=== PATIENT | female | born 1960 | race Caucasian/White ===

== ENCOUNTER 2016-12-04 10:39 | Emergency (ER) | payer MEDICAID ==
[2016-12-04] MEDS ORDERED: BENZONATATE 100 MG CAPSULE PO STA (13:22)
[2016-12-04] MEDS ORDERED: OSELTAMIVIR 75 MG CAPSULE PO STA (13:22)
[2016-12-04] MEDS ORDERED: guaiFENesin/CODEINE 5 ML UDC PO STA (13:22)
[2016-12-04] MEDS ORDERED: guaiFENesin/CODEINE 5 ML UDC ONE (13:33)
[2016-12-04] MEDS ORDERED: BENZONATATE 100 MG CAPSULE PO ONE (13:33)
[2016-12-04] MEDS ORDERED: OSELTAMIVIR 75 MG CAPSULE PO ONE (13:34)
== END 2016-12-04 13:44 | disposition home or self-care (01) ==
DX: J10.1 Influenza due to other identified influenza virus with other respiratory manifestations (principal); D89.9 Disorder involving the immune mechanism, unspecified; Z94.0 Kidney transplant status; Z94.4 Liver transplant status; Z87.891 Personal history of nicotine dependence
CPT/HCPCS: 71020; 87275; 87276; 99283; 99284; A9270

== ENCOUNTER 2017-05-01 16:54 | Inpatient (IN) | payer MEDICAID ==
[2017-05-01] MEDS ORDERED: ONDANSETRON 4 MG/2 ML VIAL IVP STA (17:11)
--- NOTE | 2017-05-01 17:13 | ED Physician Documentation ---
PD HPI ABD PAIN - Stated complaint Stated Complaint: FEMALE ,FEVER - Chief complaint Chief Complaint: Abd Pain - History obtained from History obtained from: Patient - History of Present Illness Timing - onset: Other (56-year-old woman with history of cirrhosis, 3 years out from kidney liver transplant. Developed diffuse back pain yesterday and today with shaking chills and fevers consistent with prior episode of UTI. Had a fever to 102 just prior to arrival. Feels nauseous.) Review of Systems Ten Systems: 10 systems reviewed and negative Constitutional: reports: Fever, Chills, Myalgias, Fatigue, Sweats Nose: denies: Rhinorrhea / runny nose, Congestion Respiratory: denies: Dyspnea, Cough GI: reports: Nausea. denies: Vomiting PD PAST MEDICAL HISTORY - Past Medical History Cardiovascular: None Respiratory: Asthma Neuro: Seizure disorder Endocrine/Autoimmune: None GI: GI bleed, Hepatitis, Cirrhosis EMERY GRINDER: None : None HEENT: None Psych: Depression Musculoskeletal: None Derm: None - Past Surgical History Past Surgical History: Yes Ortho: Other /EMERY GRINDER: section, Hysterectomy HEENT: Tonsil/Adenoidectomy - Present Medications Home Medications: Ambulatory Orders Medication Instructions Recorded Confirmed Mycophenolate Sodium [Mycophenolic 180 mg PO BID 03/07/15 05/01/17 Acid] Tacrolimus 1 mg PO BID 03/07/15 05/01/17 Fluticasone [Flonase] 1 sprays TAVO BID PRN #1 bottle 12/04/16 05/01/17 Levofloxacin [Levaquin] 500 mg PO DAILY #10 tablet 05/01/17 oxyCODONE [Roxicodone] 1 - 2 tab PO Q4-6H PRN #15 tablet 05/01/17 - Allergies Allergies/Adverse Reactions: Allergies Allergy/AdvReac Type Severity Reaction Status Date / Time promethazine HCl * Allergy Intermediate Anxiety Verified 05/01/17 17:00 [From Phenergan] sertraline HCl * Allergy Unknown Unknown Verified 05/01/17 17:00 [From Zoloft] - Social History Does the pt smoke?: No Smoking Status: Former smoker Does the pt drink ETOH?: Yes Does the pt have substance abuse?: No - Immunizations Immunizations are current?: Yes - POLST Patient has POLST: Yes PD ED PE NORMAL - Vitals Vital signs reviewed: Yes - General General: Alert and oriented X 3, No acute distress - HEENT HEENT: PERRL, EOMI - Neck Neck: Supple, no meningeal sign, No bony TTP - Cardiac Cardiac: RRR, No murmur - Respiratory Respiratory: No respiratory distress, Clear bilaterally - Abdomen Abdomen: Soft, Other (TTP RLQ (where her neokidney is)) - Back Back: No CVA TTP, No spinal TTP - Derm Derm: Normal color, Warm and dry - Extremities Extremities: No edema, No calf tenderness / cord - Neuro Neuro: Alert and oriented X 3, Normal speech - Psych Psych: Normal mood, Normal affect Results - Vitals Vitals: Vital Signs - 24 hr 05/01/17 05/01/17 05/01/17 16:57 18:04 18:49 Temperature 37.6 C H 37.7 C H Heart Rate 75 110 H 112 H Respiratory 18 18 Rate Blood Pressure 160/91 H 102/57 L 102/51 L O2 Saturation 100 96 99 05/01/17 18:56 Temperature 38.1 C H Heart Rate 120 H Respiratory 18 Rate Blood Pressure O2 Saturation 97 Oxygen O2 Source Room air - Labs Labs: Laboratory Tests 05/01/17 05/01/17 05/01/17 17:15 17:30 17:30 WBC 9.2 RBC 3.84 L Hgb 12.2 Hct 35.4 L MCV 92.4 MCH 31.7 H MCHC 34.3 RDW 12.8 Plt Count 228 MPV 7.9 Neut # Not Reportable Lymph # Not Reportable Archer # Not Reportable Eos # Not Reportable Baso # Not Reportable Absolute Nucleated RBC Not Reportable Total Counted 100 Band Neuts % (Manual) 2 Neutrophils # (Manual) 7.8 H Lymphocytes # (Manual) 1.0 L Monocytes # (Manual) 0.2 Eosinophils # (Manual) 0.2 Nucleated RBCs Not Reportable Differential Comment MANUAL DIFFERENTIAL Manual Slide Review Indicated Platelet Estimate NORMAL (130-450,000) Platelet Morphology NORMAL APPEARANCE RBC Morph Micro Appear NORMAL APPEARANCE Sodium 134 L Potassium 3.9 Chloride 100 L Carbon Dioxide 25 Anion Gap 9.0 BUN 21 H Creatinine 1.1 H Estimated GFR (MDRD) 52 L Glucose 120 H Lactic Acid Calcium 9.0 Total Bilirubin 1.1 H AST 22 ALT 21 Alkaline Phosphatase 58 Total Protein 7.4 Albumin 4.5 Globulin 2.9 Albumin/Globulin Ratio 1.6 Lipase 18 L Urine Color YELLOW Urine Clarity CLEAR Urine pH 5.5 Ur Specific Cecil 1.020 Urine Protein NEGATIVE Urine Glucose (UA) NEGATIVE Urine Ketones NEGATIVE Urine Occult Blood TRACE-INTA Urine Nitrite NEGATIVE Urine Bilirubin NEGATIVE Urine Urobilinogen 0.2 (NORMAL) Ur Leukocyte Esterase SMALL H Urine RBC 6-10 H Urine WBC 6-10 H Ur Squamous Epith Cells FEW Squamous Urine Bacteria Moderate H Ur Microscopic Review INDICATED Urine Culture Comments INDICATED 05/01/17 17:30 WBC RBC Hgb Hct MCV MCH MCHC RDW Plt Count MPV Neut # Lymph # Archer # Eos # Baso # Absolute Nucleated RBC Total Counted Band Neuts % (Manual) Neutrophils # (Manual) Lymphocytes # (Manual) Monocytes # (Manual) Eosinophils # (Manual) Nucleated RBCs Differential Comment Manual Slide Review Platelet Estimate Platelet Morphology RBC Morph Micro Appear Sodium Potassium Chloride Carbon Dioxide Anion Gap BUN Creatinine Estimated GFR (MDRD) Glucose Lactic Acid 0.8 Calcium Total Bilirubin AST ALT Alkaline Phosphatase Total Protein Albumin Globulin Albumin/Globulin Ratio Lipase Urine Color Urine Clarity Urine pH Ur Specific Cecil Urine Protein Urine Glucose (UA) Urine Ketones Urine Occult Blood Urine Nitrite Urine Bilirubin Urine Urobilinogen Ur Leukocyte Esterase Urine RBC Urine WBC Ur Squamous Epith Cells Urine Bacteria Ur Microscopic Review Urine Culture Comments PD MEDICAL DECISION MAKING - ED course ED course: 56-year-old woman with history of kidney and liver transplant presents with UTI symptoms and some symptoms concerning for systemic infection including fever and rigors. Blood work was reassuring with creatinine at her baseline and no leukocytosis and she very much wanted to go home. However she did become more tachycardic and developed a shock index. Patient still did not want to be admitted. I discussed the case with nephrology at [facility] per her request, Dr. Castillo who did recommend admission on IV antibiotics. Spoke with Dr. Tom at 740 p.m. Departure - Departure Disposition: [facility] DC/Xfer Clinical Impression: Pyelonephritis, Liver transplant recipient, Kidney transplant recipient Condition: Good Record reviewed to determine appropriate education?: Yes Instructions: Pyelonephritis Dc Prescriptions: Levofloxacin [Levaquin] 500 mg PO DAILY #10 tablet oxyCODONE [Roxicodone] 1 - 2 tab PO Q4-6H PRN #15 tablet PRN Reason: Pain Comments: As we discussed we will culture your urine, this results should be done in 48- 72 hours. If an antibiotic change is necessary we will call you. Return if worse in the meantime, especially if you develop flank pain or fevers or cannot keep down the medication. If blood cultures were positive we will call you, you will need to return immediately. Follow up with your DrDorcas in 2 days.
[2017-05-01] MEDS ORDERED: SODIUM CHLORIDE 0.9% 1,000 ML IV ONE (17:14)
[2017-05-01] MEDS ORDERED: ONDANSETRON 4 MG/2 ML VIAL ONE (17:20)
[2017-05-01 17:22] LABS: BILIRUBIN,URINE NEGATIVE (NEGATIVE); PH,URINE 5.5 PH (5.0-7.5)
[2017-05-01 17:23] LABS: UA w/ MICROSCOPIC CHARGE YES
[2017-05-01 17:29] LABS: UR CULTURE IF IND INDICATED
[2017-05-01] MEDS ORDERED: HYDROmorphone 1 MG/ML SYRINGE IVP STA ×2 (17:36→18:09)
[2017-05-01] MEDS ORDERED: HYDROmorphone 1 MG/ML SYRINGE ONE ×2 (17:39→18:11)
[2017-05-01 17:45] LABS: BASOPHILS % (AUTO) 0.3 %; EOSINOPHILS % (AUTO) 0.8 %; HCT - HEMATOCRIT 35.4 % (37.0-47.0); HGB - HEMOGLOBIN 12.2 g/dL (12.0-16.0); LYMPHOCYTES % (AUTO) 6.8 %; MEAN CORPUSCULAR HEMOGLOBIN 31.7 pg (27.0-31.0); MEAN CORPUSCULAR HGB CONC 34.3 g/dL (32.0-36.0); MEAN CORPUSCULAR VOLUME 92.4 fL (81.0-99.0); MEAN PLATELET VOLUME 7.9 fL (7.9-10.8); MONOCYTES % (AUTO) 1.7 %; NEUTROPHILS % (AUTO) 90.4 %; RED BLOOD COUNT 3.84 10^6/uL (4.20-5.40); RED CELL DISTRIBUTION WIDTH 12.8 % (12.0-15.0); UNCORRECTED WHITE BLOOD COUNT 9.2 x10^3/uL; WHITE BLOOD COUNT 9.2 x10^3/uL (4.8-10.8)
[2017-05-01 17:56] LABS: ALBUMIN/GLOBULIN RATIO 1.6 (1.0-2.2); BILIRUBIN,TOTAL 1.1 mg/dL (0.2-1.0); CREATININE 1.1 mg/dL (0.4-1.0); POTASSIUM 3.9 mmol/L (3.5-5.0); TOTAL PROTEIN 7.4 g/dL (6.7-8.2)
[2017-05-01] MEDS ORDERED: cefTRIAXone 1 GM in SODIUM CHLORIDE 0.9% MINIBAG 100 ML IV STA (18:10)
[2017-05-01] MEDS ORDERED: SODIUM CHLORIDE 0.9% MINIBAG 100 ML IV ONE (18:11)
[2017-05-01] MEDS ORDERED: cefTRIAXone 1 GM VIAL ONE (18:11)
[2017-05-01] MEDS ORDERED: METOCLOPRAMIDE 10 MG/2 ML VIAL IVP STA (19:26)
[2017-05-01] MEDS ORDERED: METOCLOPRAMIDE 10 MG/2 ML VIAL ONE (19:29)
[2017-05-01 19:37] LABS: BAND NEUTROPHILS % (MANUAL) 2 %; EOSINOPHILS % (MANUAL) 2 %; LYMPHOCYTES % (MANUAL) 11 %; NEUTROPHILS % (MANUAL) 83 %; NP AUTO DIFFERENTIAL? YES; NP MAN DIFFERENTIAL? NO; PLATELET ESTIMATE, MANUAL NORMAL (130-450,000) (NORMAL); PLATELET MORPHOLOGY NORMAL APPEARANCE (NORMAL); TOTAL CELLS COUNTED 100
[2017-05-01] MEDS ORDERED: ACETAMINOPHEN 325 MG TABLET PO STA (19:43)
[2017-05-01] MEDS ORDERED: ACETAMINOPHEN 325 MG TABLET PO ONE (19:58)
[2017-05-01] MEDS ORDERED: PROCHLORPERAZINE 10 MG/2 ML VIAL IVP PRN (20:46)
[2017-05-01] MEDS ORDERED: ZOLPIDEM 5 MG TABLET PO PRN (20:46)
[2017-05-01] MEDS ORDERED: oxyCODONE 5 MG TABLET PO PRN ×2 (20:46)
[2017-05-01] MEDS ORDERED: SODIUM CHLORIDE FLUSH 0.9% 10 ML SYRINGE IVP PRN (20:46)
[2017-05-01] MEDS ORDERED: ONDANSETRON 4 MG/2 ML VIAL IVP PRN (20:46)
[2017-05-01] MEDS: HYDROmorphone 1 MG/ML SYRINGE IVP PRN (22:02)
[2017-05-01] MEDS: SODIUM CHLORIDE 0.9% 1,000 ML IV SCH (22:03)
[2017-05-01] MEDS: PHENAZOPYRIDINE 100 MG TABLET PO SCH (22:03)
[2017-05-01] MEDS: SODIUM CHLORIDE FLUSH 0.9% 10 ML SYRINGE IVP SCH (22:04)
[2017-05-01] MEDS: TACROLIMUS 0.5 MG CAPSULE PO SCH (22:04)
[2017-05-01] MEDS ORDERED: SODIUM CHLORIDE 0.9% 1,000 ML IV SCH (22:32)
--- NOTE | 2017-05-01 23:35 | HISTORY & PHYSICAL EXAMINATION ---
Chief Complaint - Chief Complaint Chief Complaint: back pain History of Present Illness - Admitted From Admitted From:: emergency department - History Obtained From Records Reviewed: yes History obtained from: patient Exam Limitations: none - History of Present Illness HPI Comment/Other: Patient is a 56-year-old female with a past medical history significant for liver and kidney transplant done 2-1/2 years ago currently on immunosuppression therapy with mycophenolate and tacrolimus, history of alcoholic liver cirrhosis and recurrent UTIs since transplant who presents to the emergency department with a chief complaint of back pain. The patient states that she was in her normal state of health until earlier today when she states at work she felt very fatigued which is not normal for her. She states that when she returned home from work she began to shake and had chills. She states that she laid in bed and then started to develop back pain. She states the pain was in the lower back but most severe in the right flank area. She states that the pain radiated around to the right lower quadrant. From her previous experience with having urinary tract infections she thought she may be having another UTI. She checked her temperature at home it was 101.8 so she decided to come into the emergency department. The patient also states that she was feeling nauseated but had not vomited. Otherwise she denied any headaches, blurred vision, runny nose, nasal congestion, sore throat, cough, chest pain, shortness of air, orthopnea, increased lower extremity swelling, diarrhea, recent unintentional weight loss, night sweats or focal neurologic deficits.The patient denied any dysuria, polyuria, increased urinary urgency but she states that she does not normally get urinary symptoms when she has a UTI. On presentation to the emergency department the patient initially had a low- grade fever of 37.6 and otherwise normal vital signs. Her initial lab work showed a slight hypo-natremia and a creatinine of 1.1 which she stated was near her baseline. She had a normal lactic acid and her white blood cell count was only 9.2 although she is immunosuppressed. The patient's UA did show small leukocyte estrace with positive RBCs and WBCs with moderate bacteria. Initially it appeared the patient may be well enough to go home however while in the emergency department the patient spiked fevers up to 38.8 and her heart rate went up to the 130s. Initially she her blood pressure was stable but then she became hypotensive on presentation to the floor. The emergency department physician Dr. Soares spoke with the patient's mend worker at [facility] Dr. Castillo who recommended the patient be admitted and given IV antibiotics. Given the mend worker recommendation and the fact the patient appeared to be going into early sepsis we decided to admit the patient for pyelonephritis. Review of Systems - Constitutional Constitutional: reports: Fatigue, Fever, Chills, Weakness. denies: Malaise, Poor appetite, Diaphoresis, Night sweats, Weight gain, Weight loss - Eyes Eyes: denies: Pain, Irritation, Amaurosis, Blurred vision, Spots in vision, Field loss, Vision loss, Dipolpia, Corrective lenses, Other - Ears, Nose & Throat Ears, Nose & Throat: denies: Ear pain, Hearing loss, Hearing aids, Tinnitus, Vertigo, Nasal pain, Nasal discharge, Nosebleeds, Nasal obstruction, Nasal congestion, Postnasal drainage, Dentures, Sore throat, Hoarseness, Mouth lesions , Bleeding gums, Dental decay, Dental pain, Other - Cardiovascular Cariovascular: denies: Irregular heart rate, Palpitations, Chest pain, Edema, Lightheadedness, Syncope, Exertional dyspnea, Decr. exercise tolerance, Orthopnea, Other - Respiratory Respiratory: denies: Cough, Sputum production, Wheezing, Snoring, Hemoptysis, Orthopnea, SOB at rest, SOB with exertion, Apnea, Stridor, Pleuritic pain, Other - Gastrointestinal Gastrointestinal: reports: Abdominal pain (right lower quadrant and bilateral flanks worse in right flank (pateints transplant kidney is in the RLQ)), Nausea. denies: Abdominal distention, Constipation, Diarrhea, Change in bowel habits, Black stools, Bloody stools, Vomiting, Bile emesis, Coffee grounds emesis, Poor appetite - Genitourinary Genitourinary: reports: Flank pain. denies: Dysuria, Frequency, Urgency, Hematuria - Musculoskeletal Musculoskeletal: reports: Back pain. denies: Muscle pain, Muscle aches, Stiffness, Limited range of motion, Muscle weakness, Joint pain, Joint swelling - Integumentary Integumentary: denies: Rash, Pruritis, Lesions, Dryness - Neurological Neurological: reports: General weakness. denies: Focal weakness, Headache, Dizziness, Numbness, Abnormal gait, Seizures - Psychiatric Psychiatric: denies: Depression, Anxiety - Endocrine Endocrine: denies: Polyuria, Polydypsia, Polyphagia, Intolerance to cold, Intolerance to heat - Hematologic/Lymphatic Hematologic/Lymphatic: denies: Anemia, Bruising, Petechiae, Lymphadenopathy History - Past Medical History Cardiovascular: reports: None Respiratory: reports: Asthma Neuro: reports: Seizure disorder Endocrine/Autoimmune: reports: None GI: reports: GI bleed (history of ), Cirrhosis (Secondary to alcoholism s/p liver transplant) LEAD DIE MOLDER: reports: None : reports: Other (Renal transplant secondary to hepatorenal syndrome from liver cirrhosis) HEENT: reports: None Psych: reports: Depression Musculoskeletal: reports: None Derm: reports: None MRSA Hx?: No Other Past Medical History: liver and kidney transplant october 2014 - Past Surgical History General: reports: Liver surgery (Tranplant), Other (Renal transplant) Ortho: reports: Other /LEAD DIE MOLDER: reports: section, Hysterectomy HEENT: reports: Tonsil/Adenoidectomy - Family & Social History Family History: Father: Alcoholism, Alzheimer's Disease, Other family: CAD ( Maternal grandmother and aunt) Family History Comment/Other: Mother had polio when she was young Living arrangement: At home Living Situation: Alone Social History Notes: Patient lives alone in [place]. 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 She is originally from [place] moved up to [place] in the and has moved up to [facility] in 2002. She has 2 daughters both of whom live in [facility] and one adopted son who lives in [place]. The patient split up with her fianc about 6 years ago and went through a very hard time she became depressed and became a alcohol. She states that she was a heavy drinker for about 3 years and was a moderate drinker prior to that. She states that she has not drank alcohol in the last 3 years. She's never smoked she denies any illicit drug use. - Substance History Use: Uses substance without health or social issues: NONE Abuse: Recurrent use of substance despite neg consequences: NONE Dependence: Experiences withdrawal or developed tolerances: NONE - POLST Patient has POLST: Yes POLST Status: Full Code Meds/Allgy - Home Medications Home Medications: Ambulatory Orders Medication Instructions Recorded Confirmed Mycophenolate Sodium [Mycophenolic 180 mg PO BID 03/07/15 05/01/17 Acid] Tacrolimus 1 mg PO BID 03/07/15 05/01/17 Fluticasone [Flonase] 1 sprays TAVO BID PRN #1 bottle 12/04/16 05/01/17 Levofloxacin [Levaquin] 500 mg PO DAILY #10 tablet 05/01/17 oxyCODONE [Roxicodone] 1 - 2 tab PO Q4-6H PRN #15 tablet 05/01/17 - Allergies Allergies/Adverse Reactions: Allergies Allergy/AdvReac Type Severity Reaction Status Date / Time promethazine HCl * Allergy Intermediate Anxiety Verified 05/01/17 17:00 [From Phenergan] sertraline HCl * Allergy Unknown Unknown Verified 05/01/17 17:00 [From Zoloft] Exam - Vital Signs Reviewed Vital Signs: Yes Vital Signs: Vital Signs x48h Temp Pulse Resp BP BP Pulse Ox 05/01/17 23:00 102 H 91/56 L 05/01/17 22:40 37.0 C 108 H 18 87/57 L 05/01/17 22:00 37.0 C 108 H 16 86/57 L 94 - Physical Exam General Appearance: positive: Alert, Mild distress (Pain cant get comfortable) Eyes Bilateral: positive: Normal inspection, PERRL, EOMI, No lid inflammation, Conjunctivae nml, No scleral icterus ENT: positive: ENT inspection nml, Pharynx nml, Dry mucous membranes. negative : Purulent nasal drainage, Pharyngeal erythema, Oral lesions Neck: positive: Nml inspection, Thyroid nml, No JVD, Trachea midline. negative : Thyromegaly, Lymphadenopathy (R), Lymphadenopathy (L) Respiratory: positive: Chest non-tender, No respiratory distress, Breath sounds nml. negative: Wheezes, Rales, Rhonchi Cardiovascular: positive: Tachycardia. negative: No murmur, No gallop Peripheral Pulses: positive: 2+ Abdomen: positive: Nml bowel sounds, Tenderness (Right lower quadrant and right flank). negative: Guarding, Rebound, Hepatomegaly, Splenomegaly, Mass Back: positive: Nml inspection, CVA tenderness (R). negative: CVA tenderness (L ) Skin: positive: Color nml, No rash, Warm, Dry, Other (very warm). negative: Cyanosis, Diaphoresis, Pallor Extremities: positive: Non-tender, Full ROM, Nml appearance, Pedal edema (Mild) . negative: Calf tenderness, Joint swelling Neurologic/Psychiatric: positive: Oriented x3, CN's nml (2-12), Motor nml, Sensation nml, Mood/affect nml Conclusion/Plan - Problem List (1) Pyelonephritis Conclusion/Plan: Patient is a thin you know suppressed patient with history of kidney and liver transplant on mycophenolate and tacrolimus with history of recurrent UTIs since transplant. She presented to the emergency department with fever was tachycardic and had right flank and right lower quadrant pain. She was tender in the right lower quadrant but this is where her transplanted kidney resides. The patient's urine was positive for a urinary tract infection. In the past patient has grown Enterococcus faecalis in her urine which was susceptible to Levaquin. Emergency room physician spoke with the patient's mend worker who recommended the patient be admitted for IV antibiotics and to continue her immunosuppressive medications. On presentation to the medical ewing the patient was slightly hypotensive and appeared to be an early sepsis. Lactic acid was normal Plan IV Levaquin IV fluids with aggressive resuscitation Followup urine and blood cultures Pain control and nausea control Monitor closely on telemetry as do to immunosuppression patient is high risk for deterioration (2) Kidney transplant recipient Conclusion/Plan: Patient has had recurrent UTIs since her transplant. Patient's creatinine on presentation is 1.1 she states her baseline is between 1.0 and 1.1. Will continue home dose of tacrolimus and mycophenolate while patient is hospitalized. Avoid nephrotoxic agents Monitor renal function daily. (3) Liver transplant recipient Conclusion/Plan: Patient is status post transplant secondary to alcoholic liver cirrhosis. Patient remains sober and is following up with transplant specialist. Bilirubin is 1.1 and there is no elevation in LFTs. Will continue home dose of tacrolimus and mycophenolate while patient is hospitalized. (4) Prophylactic use of low molecular weight heparin for venous thromboembolism Conclusion/Plan: Place on Lovenox while hospitalized - Lab Results Lab results reviewed: Yes Eliot Bones: 05/01/17 17:30 05/01/17 17:30 - Diagnostic Imaging Results Diagnostic Imaging Results: positive: Final report reviewed - EKG Results EKG Interpreted Independently: Yes Issues/Core Measures - Anticipated LOS Anticipated Stay Length: 2 or more midnights - DVT/VTE - Prophylaxis VTE/DVT Prophylaxis med ordered at admit?: Yes
[2017-05-02] MEDS: traZODone 50 MG TABLET PO SCH ×2 (00:51→21:45)
[2017-05-02] MEDS: SODIUM CHLORIDE 0.9% 1,000 ML IV SCH ×2 (00:55→11:45)
[2017-05-02] MEDS: ACETAMINOPHEN 325 MG TABLET PO PRN ×2 (03:54→19:18)
[2017-05-02 05:04] LABS: BASOPHILS % (AUTO) 0.3 %; LYMPHOCYTES # (AUTO) 0.6 10^3/uL (1.5-3.5); LYMPHOCYTES % (AUTO) 6.7 %; MEAN CORPUSCULAR HGB CONC 34.6 g/dL (32.0-36.0); MEAN CORPUSCULAR VOLUME 92.3 fL (81.0-99.0); MONOCYTES # (AUTO) 0.4 10^3/uL (0.0-1.0); MONOCYTES % (AUTO) 4.1 %; NEUTROPHILS # (AUTO) 7.7 10^3/uL (1.5-6.6); NEUTROPHILS % (AUTO) 88.9 %; RED BLOOD COUNT 3.14 10^6/uL (4.20-5.40); RED CELL DISTRIBUTION WIDTH 13.1 % (12.0-15.0); UNCORRECTED WHITE BLOOD COUNT 8.7 x10^3/uL; WHITE BLOOD COUNT 8.7 x10^3/uL (4.8-10.8)
[2017-05-02 05:16] LABS: ALBUMIN/GLOBULIN RATIO 1.4 (1.0-2.2); BILIRUBIN,TOTAL 1.2 mg/dL (0.2-1.0); CALCIUM 7.3 mg/dL (8.5-10.3); CREATININE 1.2 mg/dL (0.4-1.0); POTASSIUM 3.7 mmol/L (3.5-5.0); TOTAL PROTEIN 5.1 g/dL (6.7-8.2)
[2017-05-02] MEDS: PANTOPRAZOLE 40 MG TABLET PO SCH (06:21)
[2017-05-02] MEDS: MYCOPHENOLIC ACID 180 MG PO SCH ×3 (07:30→21:45)
[2017-05-02] MEDS: SODIUM CHLORIDE FLUSH 0.9% 10 ML SYRINGE IVP SCH ×3 (07:31→21:45)
[2017-05-02] MEDS: PHENAZOPYRIDINE 100 MG TABLET PO SCH ×3 (09:34→21:45)
[2017-05-02] MEDS: ENOXAPARIN 40 MG/0.4 ML SYRINGE SUBQ SCH (09:34)
[2017-05-02] MEDS: POLYETHYLENE GLYCOL 3350 17 GM PACKET PO SCH (09:35)
[2017-05-02] MEDS: TACROLIMUS 0.5 MG CAPSULE PO SCH ×2 (09:35→21:45)
[2017-05-02] MEDS: FLUTICASONE NASAL SPRAY NAS PRN (09:42)
[2017-05-02] MEDS: HYDROmorphone 1 MG/ML SYRINGE IVP PRN ×2 (11:34→19:18)
--- NOTE | 2017-05-02 13:24 | PROVIDER PROGRESS NOTE ---
Assessment/Plan - Problem List (1) Kidney transplant recipient Assessment/Plan: She is 2 1/2 yrs post. She has done well. She has had frequent UTIs and kidney infections. (2) Liver transplant recipient Assessment/Plan: she had rise in her AST and Alt. Will continue to monitor. Have a telephone consult in process with the liver transplant team at [facility]. (3) Pyelonephritis Assessment/Plan: She has E Coli in blood again exact type not determined. It is sens. to Levaquin which she is on. (4) Bacteriuria with pyuria Assessment/Plan: Urine C&S not available yet. - Current Meds Current Meds: Current Medications Generic Name Dose Route Start Last Admin Trade Name Freq PRN Reason Stop Dose Admin Acetaminophen 650 mg 05/01/17 20:46 05/02/17 03:54 Tylenol PO 650 mg Q4HR PRN Administration Pain 1 to 4 Enoxaparin Sodium 40 mg 05/02/17 09:00 05/02/17 09:34 Lovenox SUBQ 40 mg DAILY AMANDA Administration Fluticasone Propionate 0 sprays 05/01/17 20:45 05/02/17 09:42 Flonase TAVO 2 puffs BID PRN Administration allergies Hydromorphone HCl 1 mg 05/01/17 20:46 05/02/17 11:34 Dilaudid Inj IVP 1 mg Q2HR PRN Administration Pain 8 to 10 Sodium Chloride 1,000 mls @ 100 mls/hr 05/01/17 21:00 05/02/17 11:45 Normal Saline 0.9% IV 100 mls/hr .Q10H AMANDA Administration Levofloxacin 100 mls @ 100 mls/hr 05/01/17 21:00 05/01/17 22:03 Levaquin 500 Mg/100 Ml IV 100 mls/hr Q24H AMANDA Administration Ondansetron HCl 4 mg 05/01/17 20:46 05/02/17 11:34 Zofran Inj IVP 4 mg Q6HR PRN Administration Nausea / Vomiting Oxycodone HCl 10 mg 05/01/17 20:46 05/02/17 03:53 Roxicodone PO 10 mg Q4HR PRN Administration Pain 8 to 10 Pantoprazole Sodium 40 mg 05/02/17 07:00 05/02/17 06:21 Protonix PO 40 mg QDAC AMANDA Administration Mycophenolic Acid 1 each 05/01/17 21:00 05/02/17 09:35 180 Mg PO 1 each 1000,1900 AMANDA Administration Phenazopyridine HCl 200 mg 05/01/17 22:00 05/02/17 09:34 Pyridium PO 05/03/17 14:01 200 mg TID AMANDA Administration Polyethylene Glycol 17 gm 05/02/17 09:00 05/02/17 09:35 Miralax PO Not Given DAILY AMANDA Sodium Chloride 10 ml 05/01/17 22:00 05/02/17 07:31 Normal Saline Flush 0.9% IVP Not Given Q8HR AMANDA Tacrolimus 1 mg 05/01/17 21:00 05/02/17 09:35 Tacrolimus PO 1 mg BID AMANDA Administration Trazodone HCl 50 mg 05/01/17 21:57 05/02/17 00:51 Desyrel PO 50 mg QPM AMANDA Administration - Lab Result Fish Bone Diagrams: 05/02/17 04:40 05/02/17 04:40 Subjective - Subjective Patient Reports: Feeling Better Nursing Reports: Pain Objective Vital Signs: Vital Signs - 24 hr 05/01/17 05/01/17 05/01/17 22:00 22:40 23:00 Temperature 37.0 C 37.0 C Heart Rate [ 108 H 108 H 102 H Brachial] Respiratory 16 18 Rate Blood Pressure 86/57 L [Left Brachial artery] Blood Pressure 87/57 L 91/56 L [Right Brachial artery] O2 Saturation 94 05/01/17 05/02/17 05/02/17 23:34 00:43 03:45 Temperature 37.5 C 37.1 C Heart Rate [ 103 H 103 H Brachial] Respiratory 16 20 Rate Blood Pressure [Left Brachial artery] Blood Pressure 94/63 94/59 L 100/58 L [Right Brachial artery] O2 Saturation 98 94 05/02/17 05/02/17 05/02/17 08:43 08:48 12:41 Temperature Heart Rate [ 94 86 114 H Brachial] Respiratory 20 20 Rate Blood Pressure [Left Brachial artery] Blood Pressure 88/55 L 87/56 L 94/56 L [Right Brachial artery] O2 Saturation 98 93 Oxygen O2 Source Room air I&O (Last 24 Hrs): Intake and Output Totals x24h 04/30/17 05/01/17 05/02/17 23:59 23:59 23:59 Intake Total 1770 Balance 1770 General: Alert, Oriented x3, Cooperative HEENT: PERRLA, EOMI Neck: No JVD, No thyromegaly Neuro: Alert, Oriented Times 3 Cardiovascular: Regular rate, No murmurs Respiratory: Chest non-tender, No respiratory distress, Breath sounds nml Abdomen: Normal bowel sounds, Soft Skin: No rashes, No breakdown - Results Results: Laboratory Results WBC 8.7 x10^3/uL (4.8-10.8) 05/02/17 04:40 RBC 3.14 10^6/uL (4.20-5.40) L 05/02/17 04:40 Hgb 10.0 g/dL (12.0-16.0) L 05/02/17 04:40 Hct 29.0 % (37.0-47.0) L 05/02/17 04:40 MCV 92.3 fL (81.0-99.0) 05/02/17 04:40 MCH 32.0 pg (27.0-31.0) H 05/02/17 04:40 MCHC 34.6 g/dL (32.0-36.0) 05/02/17 04:40 RDW 13.1 % (12.0-15.0) 05/02/17 04:40 Plt Count 159 10^3/uL (130-450) 05/02/17 04:40 MPV 8.0 fL (7.9-10.8) 05/02/17 04:40 Neut # 7.7 10^3/uL (1.5-6.6) H 05/02/17 04:40 Lymph # 0.6 10^3/uL (1.5-3.5) L 05/02/17 04:40 [place] # 0.4 10^3/uL (0.0-1.0) 05/02/17 04:40 Eos # 0.0 10^3/uL (0.0-0.7) 05/02/17 04:40 Baso # 0.0 10^3/uL (0.0-0.1) 05/02/17 04:40 Absolute Nucleated RBC 0.00 x10^3/uL 05/02/17 04:40 Total Counted 100 05/01/17 17:30 Band Neuts % (Manual) 2 % (0-10) 05/01/17 17:30 Neutrophils # (Manual) 7.8 10^3/uL (1.5-6.6) H 05/01/17 17:30 Lymphocytes # (Manual) 1.0 10^3/uL (1.5-3.5) L 05/01/17 17:30 Monocytes # (Manual) 0.2 10^3/uL (0.0-1.0) 05/01/17 17:30 Eosinophils # (Manual) 0.2 10^3/uL (0-0.7) 05/01/17 17:30 Nucleated RBCs 0.0 /100WBC 05/02/17 04:40 Differential Comment MANUAL DIFFERENTIAL 05/01/17 17:30 Manual Slide Review Indicated 05/01/17 17:30 Platelet Estimate NORMAL (130-450,000) (NORMAL) 05/01/17 17:30 Platelet Morphology NORMAL APPEARANCE (NORMAL) 05/01/17 17:30 RBC Morph Micro Appear NORMAL APPEARANCE (NORMAL) 05/01/17 17:30 Sodium 136 mmol/L (135-145) 05/02/17 04:40 Potassium 3.7 mmol/L (3.5-5.0) 05/02/17 04:40 Chloride 106 mmol/L (101-111) 05/02/17 04:40 Carbon Dioxide 21 mmol/L (21-32) 05/02/17 04:40 Anion Gap 9.0 (6-13) 05/02/17 04:40 BUN 18 mg/dL (6-20) 05/02/17 04:40 Creatinine 1.2 mg/dL (0.4-1.0) H 05/02/17 04:40 Estimated GFR (MDRD) 47 (>89) L 05/02/17 04:40 Glucose 130 mg/dL (70-100) H 05/02/17 04:40 Lactic Acid 0.8 mmol/L (0.5-2.2) 05/01/17 17:30 Calcium 7.3 mg/dL (8.5-10.3) L 05/02/17 04:40 Total Bilirubin 1.2 mg/dL (0.2-1.0) H 05/02/17 04:40 AST 209 IU/L (10-42) H 05/02/17 04:40 ALT 144 IU/L (10-60) H 05/02/17 04:40 Alkaline Phosphatase 52 IU/L (42-121) 05/02/17 04:40 Total Protein 5.1 g/dL (6.7-8.2) L 05/02/17 04:40 Albumin 3.0 g/dL (3.2-5.5) L 05/02/17 04:40 Globulin 2.1 g/dL (2.1-4.2) 05/02/17 04:40 Albumin/Globulin Ratio 1.4 (1.0-2.2) 05/02/17 04:40 Lipase 18 U/L (22-51) L 05/01/17 17:30 Urine Color YELLOW 05/01/17 17:15 Urine Clarity CLEAR (CLEAR) 05/01/17 17:15 Urine pH 5.5 PH (5.0-7.5) 05/01/17 17:15 Ur Specific [place] 1.020 (1.002-1.030) 05/01/17 17:15 Urine Protein NEGATIVE mg/dL (NEGATIVE) 05/01/17 17:15 Urine Glucose (UA) NEGATIVE mg/dL (NEGATIVE) 05/01/17 17:15 Urine Ketones NEGATIVE mg/dL (NEGATIVE) 05/01/17 17:15 Urine Occult Blood TRACE-INTA (NEGATIVE) 05/01/17 17:15 Urine Nitrite NEGATIVE (NEGATIVE) 05/01/17 17:15 Urine Bilirubin NEGATIVE (NEGATIVE) 05/01/17 17:15 Urine Urobilinogen 0.2 (NORMAL) E.U./dL (NORMAL) 05/01/17 17:15 Ur Leukocyte Esterase SMALL (NEGATIVE) H 05/01/17 17:15 Urine RBC 6-10 /HPF (0-5) H 05/01/17 17:15 Urine WBC 6-10 /HPF (0-5) H 05/01/17 17:15 Ur Squamous Epith Cells FEW Squamous (<= Few) 05/01/17 17:15 Urine Bacteria Moderate /HPF (None Seen) H 05/01/17 17:15 Ur Microscopic Review INDICATED 05/01/17 17:15 Urine Culture Comments INDICATED 05/01/17 17:15 - Procedures Procedures: Procedures CENTRAL VENOUS CATHETER PLACEMENT WITH GUIDANCE (06/16/14) PACKED CELL TRANSFUSION (10/22/14)
[2017-05-02] MEDS ORDERED: traZODone 50 MG TABLET PO SCH (21:00)
--- NOTE | 2017-05-03 00:58 | Ultrasound Preliminary Report ---
Exam: US Abdomen Complete IMPRESSION: 1. Status post cholecystectomy without pathologic biliary dilatation. 2. Bilateral [place] kidneys imaged with parenchymal thinning. No hydronephrosis. 3. Satisfactory appearance of the right lower quadrant transplant kidney without obstruction, hydrone phrosis, or perinephric fluid collection. Satisfactory blood flow. 4. No significant hepatic abnormalities. Satisfactory blood flow. [facility] SITE ID: [id number]
--- NOTE | 2017-05-03 01:11 | Ultrasound Report ---
EXAM: ABDOMEN ULTRASOUND EXAM DATE: 05/02/2017 11:42 PM. CLINICAL HISTORY: Pyelonephritis, prior kidney and liver transplant, further assessment and character ization. COMPARISON: 09/30/2015 CT. TECHNIQUE: Real-time scanning was performed with static images obtained. FINDINGS: Liver: Nonspecific slight coarsened echotexture of the liver parenchyma. No definite suspicious liver lesion noted. Liver measures 17 cm in maximal length. Hepatic Vasculature: Normal resistive indices. No evidence of critical stenosis. Gallbladder: Surgically absent. Biliary System: Common bile duct measures 7.5 mm. No intrahepatic or extrahepatic ductal dilatation. Pancreas: Dilation of the pancreatic duct within the head and neck of the pancreas noted. Kidneys: Right: [place] right lower quadrant kidney demonstrates diffuse parenchymal thinning. It measures 8.3 cm in length without hydronephrosis. No contour deforming mass noted. Transplant Kidney: Transplant kidney measures 10.1 cm in length. Right lower quadrant transplant kidn ey demonstrates normal parenchymal thickness and echogenicity without hydronephrosis or evident kidne y stone. No contour deforming mass. There is a patent transplant renal vein with normal blood flow. N o evidence of transplant renal artery critical stenosis. Left: [place] left kidney demonstrates diffuse parenchymal thinning. No hydronephrosis. It measures 8. 1 cm in length. No kidney stone or contour deforming mass. Spleen: 12.1 cm. Normal in size and echotexture. Aorta and Inferior Vena Cava: Unremarkable. IMPRESSION: 1. Status post cholecystectomy without pathologic biliary dilatation. 2. Bilateral [place] kidneys demonstrate parenchymal thinning. No hydronephrosis. 3. Satisfactory appearance of the right lower quadrant transplant kidney without obstruction, hydrone phrosis, or perinephric fluid collection. Satisfactory blood flow transplant renal artery and vein. N ote that arcuate vessels were not assessed on this exam. 4. No significant hepatic abnormality. Satisfactory blood flow within common hepatic artery. Please n ote the proper hepatic artery was not assessed on this exam. [facility] Referring Provider Line: [phone] SITE ID: [id number]
[2017-05-03] MEDS: HYDROmorphone 1 MG/ML SYRINGE IVP PRN (02:37)
[2017-05-03] MEDS: FLUTICASONE NASAL SPRAY NAS PRN (02:43)
[2017-05-03] MEDS: SODIUM CHLORIDE 0.9% 1,000 ML IV SCH ×2 (03:08→09:17)
[2017-05-03] MEDS: SODIUM CHLORIDE FLUSH 0.9% 10 ML SYRINGE IVP SCH (05:35)
[2017-05-03 06:02] LABS: BASOPHILS % (AUTO) 0.2 %; EOSINOPHILS # (AUTO) 0.1 10^3/uL (0.0-0.7); EOSINOPHILS % (AUTO) 0.9 %; HCT - HEMATOCRIT 28.5 % (37.0-47.0); HGB - HEMOGLOBIN 9.8 g/dL (12.0-16.0); LYMPHOCYTES # (AUTO) 0.9 10^3/uL (1.5-3.5); MEAN CORPUSCULAR HEMOGLOBIN 32.1 pg (27.0-31.0); MEAN CORPUSCULAR HGB CONC 34.4 g/dL (32.0-36.0); MEAN CORPUSCULAR VOLUME 93.3 fL (81.0-99.0); MEAN PLATELET VOLUME 8.1 fL (7.9-10.8); MONOCYTES # (AUTO) 0.4 10^3/uL (0.0-1.0); MONOCYTES % (AUTO) 5.1 %; NEUTROPHILS # (AUTO) 5.5 10^3/uL (1.5-6.6); NEUTROPHILS % (AUTO) 80.8 %; RED BLOOD COUNT 3.06 10^6/uL (4.20-5.40); RED CELL DISTRIBUTION WIDTH 13.4 % (12.0-15.0); UNCORRECTED WHITE BLOOD COUNT 6.8 x10^3/uL; WHITE BLOOD COUNT 6.8 x10^3/uL (4.8-10.8)
[2017-05-03] MEDS: PANTOPRAZOLE 40 MG TABLET PO SCH (06:13)
[2017-05-03] MEDS: PHENAZOPYRIDINE 100 MG TABLET PO SCH (06:13)
[2017-05-03 06:14] LABS: ALBUMIN/GLOBULIN RATIO 1.2 (1.0-2.2); BILIRUBIN,TOTAL 1.1 mg/dL (0.2-1.0); CALCIUM 8.1 mg/dL (8.5-10.3); CREATININE 1.2 mg/dL (0.4-1.0); POTASSIUM 4.3 mmol/L (3.5-5.0); TOTAL PROTEIN 5.3 g/dL (6.7-8.2)
[2017-05-03] MEDS: POLYETHYLENE GLYCOL 3350 17 GM PACKET PO SCH (08:59)
[2017-05-03] MEDS: TACROLIMUS 0.5 MG CAPSULE PO SCH (09:00)
[2017-05-03] MEDS ORDERED: MYCOPHENOLIC ACID 180 MG PO SCH (09:01)
[2017-05-03] MEDS: ENOXAPARIN 40 MG/0.4 ML SYRINGE SUBQ SCH (09:03)
[2017-05-03] MEDS: MYCOPHENOLIC ACID 180 MG PO SCH (09:09)
--- NOTE | 2017-05-03 12:37 | Discharge Plan ---
Discharge Plan Disposition: 01 Home, Self Care Condition: Good Prescriptions: Levofloxacin [Levaquin] 500 mg PO DAILY #6 tablet Diet: Regular Activity Restrictions: Activity as Tolerated Shower Restrictions: No Driving Restrictions: No Instruction Topics: Pyelonephritis Dc Additional Instructions or Follow Up instructions: As we discussed we will culture your urine, this results should be done in 48- 72 hours. If an antibiotic change is necessary we will call you. Return if worse in the meantime, especially if you develop flank pain or fevers or cannot keep down the medication. If blood cultures were positive we will call you, you will need to return immediately. Follow up with your DrDorcas in 7 days. Make an appt with your Transplant doctors in the next two weeks Call me tomorrow after 1 pm to get the final results of the urine culture. Thank you Dr. Johnson [phone] No Smoking: If you smoke, Please STOP! Call for help. Follow-up with: Huong Snow MD [Primary Care Provider] - 1 Week
[2017-05-03 13:35] VITALS: BP 135/75
--- NOTE | 2017-05-04 07:11 | DISCHARGE SUMMARY ---
DATE OF ADMISSION: 05/01/2017 DATE OF DISCHARGE: 05/03/2017 PRIMARY CARE PHYSICIAN: Pawel Snow MD. ADMISSION DIAGNOSES 1. Pyelonephritis. 2. Kidney transplant recipient. 3. Liver transplant recipient. DISCHARGE DIAGNOSES 1. Pyelonephritis with Escherichia coli, antibiotic sensitivities pending. 2. Kidney transplant recipient without significant deterioration of GFR. 3. Liver transplant recipient with transient elevation of liver function test. CONSULTATIONS: Telephone consultation to the transplant service. SPECIAL PROCEDURES The patient had an abdomen ultrasound, findings: 1. Status post cholecystectomy without pathologic biliary dilatation. 2. Bilateral [place] kidneys demonstrate parental thinning, no hydronephrosis. 3. Satisfactory appearance of right lower quadrant transplanted kidney without obstruction, hydroneph rosis or perinephric fluid collection. Satisfactory blood flow transplant artery and vein. Note that arcuate vessels were not assessed on this exam. 4. No significant hepatic abnormalities, satisfactory blood flow within the common hepatic artery. Pl ease note the proper hepatic artery was not assessed on this exam. HOSPITAL COURSE AND MANAGEMENT: The initial presentation, hospital emergency department evaluation, a vt hospitalist plan are well described in the history and physical, see copy of the same. SUMMARY: The patient is a 56-year-old female with past medical history of liver and kidney transplant done 2-1/2 years previous to admission on immunosuppressive therapy with tacrolimus and mycophenolat e. The patient has had recurrent UTIs since the transplant and came in complaining of back pain and a bdominal pain, felt very weak. Radiation to right lower quadrant where she had her transplant placed. She did have a fever of 101.8. Had nausea, but no vomiting, and she was found to have a urine, which appeared infective with 6-10 WBCs, moderate bacteria and was cultured. Was later found to have E col i that was ray sensitive in both her blood and her urine. The only antibiotic that it was intermediat e to was cefazolin. Blood and urine had same sensitivities. The patient was started on Levaquin intra venously, carried on for a full 48 hours. The patient's fever resolved. Did have a fever of 38.0 the evening before discharge; however, she had been feeling much improved that entire day. The patient is discharged home on Levaquin. PHYSICAL EXAMINATION VITAL SIGNS: On day of discharge, temperature 37, pulse 90, blood pressure 135/75, 16, 92 room air sa t. Appeared brighter and animated. The patient is a thin person, appears stated age. EYES: EOM within normal limits, PERRL, nonicteric. MOUTH AND THROAT: Moist mucous membranes. No other pathology noted in the mouth or pharynx. NECK: No lymphadenopathy, no thyromegaly, no tracheal deviation. CHEST WALL: Nontender. Symmetric. No breast exam done. HEART: Normal sinus rhythm. No murmur, rubs, clicks. LUNGS: Clear, good air movement. ABDOMEN: No pain, tenderness on palpation of all quadrants. Bowel sounds are present. EXTREMITIES: No edema, has 1+ pulses bilaterally. SKIN: No suspicious lesions. Skin is dry. NEUROLOGICAL: Cognition intact. Motor intact. LABORATORY: Cultures are positive for E coli. White count 6.8, 9.8, and 28.5 hemoglobin and hematocri t. The patient's sodium 138, potassium 4.3, chloride 112, CO2 is 23, BUN 15, creatinine 1.2, glucose 112, calcium is 8.1. Liver enzymes are down from a peak of 209 and 144 AST, ALT respectively to 50 an d 78 respectively, were normal on admission. DISCHARGE ALLERGIES 1. SERTRALINE. 2. PROMETHAZINE. DISCHARGE MEDICATIONS 1. Tacrolimus 1 mg p.o. b.i.d. 2. Mycophenolate 180 mg b.i.d. 3. Levaquin 500 mg p.o. daily. The patient is to follow up with her PCP and also the transplant service. Needs to make an appointmen t for this. The patient was examined on day of discharge and time spent in discharge activity yanick perez collaboration with case management, nursing staff, and consultation with the transplant service is 35 minutes. JOB #: [id number] EXT JOB #:[id number]
== END 2017-05-03 14:01 | disposition home or self-care (01) | DRG 699 ==
LOC: ED 16:54 → MS 20:46 → ICU 05-02 00:17 → MS 05-02 18:14
PROVIDERS: ADMIT Internal Medicine; ATTEND Internal Medicine
DX: T86.13 Kidney transplant infection (principal); N10 Acute pyelonephritis; Z94.4 Liver transplant status; Y83.0 Surgical operation with transplant of whole organ as the cause of abnormal reaction of the patient, or of later complication, without mention of misadventure at the time of the procedure; B96.20 Unspecified Escherichia coli [E. coli] as the cause of diseases classified elsewhere; I95.9 Hypotension, unspecified; F32.9 Major depressive disorder, single episode, unspecified; Z87.898 Personal history of other specified conditions; Z87.891 Personal history of nicotine dependence; Z79.899 Other long term (current) drug therapy; Z90.49 Acquired absence of other specified parts of digestive tract; Z87.440 Personal history of urinary (tract) infections
CPT/HCPCS: 36415; 76700; 80053; 81001; 81003; 83605; 83690; 85025; 87040; 87077; 87086; 87150; 96361; 96365; 96375; 96376; 99284; 99285

== ENCOUNTER 2017-10-11 10:22 | Emergency (ER) | payer MEDICAID ==
[2017-10-11] MEDS: DEXAMETHASONE 10 MG/ML VIAL PO STA (13:28)
[2017-10-11] MEDS ORDERED: DEXAMETHASONE 10 MG/ML VIAL ONE (13:28)
[2017-10-11] MEDS ORDERED: CHERRY SYRUP 10 ML UDC PO ONE (13:28)
--- NOTE | 2017-10-11 13:56 | CT Preliminary Report ---
Exam: CT HEAD W/O IMPRESSION: No acute intracranial abnormality. [facility] SITE ID: [id number]
--- NOTE | 2017-10-11 13:58 | CT Report ---
EXAM: CT HEAD EXAM DATE: 10/11/2017 01:46 PM. CLINICAL HISTORY: R sided MATA. COMPARISON: 04/15/2013. TECHNIQUE: Multiaxial CT images were obtained from the foramen magnum to the vertex. Reformats: Coron al. IV contrast: None. In accordance with CT protocol optimization, one or more of the following dose reduction techniques w ere utilized for this exam: automated exposure control, adjustment of mA and/or KV based on patient s ize, or use of iterative reconstructive technique. FINDINGS: Parenchyma: No intraparenchymal hemorrhage. No evidence of mass, midline shift, or CT findings of inf arction. Mccoy-white differentiation is distinct. Extraaxial Spaces: Normal for age. No subdural or epidural collections identified. Ventricles: Normal in size and position. Sinuses and Orbits: Imaged paranasal sinuses, orbits, and mastoids show no significant abnormality. Bones: No evidence of fracture or calvarial defect. Other: None. IMPRESSION: No acute intracranial abnormality. [facility] Referring Provider Line: [phone] SITE ID: [id number]
--- NOTE | 2017-10-11 14:03 | ED Physician Documentation ---
History of Present Illness - Stated complaint Stated Complaint: HEAD PX/TENDER - Chief complaint Chief Complaint: General - Additonal information Additional information: hx from pt and EMR 57 female 2-3 yr s/p kidney and liver transplant on immunosupressant to ER with approx 5 days of severe R sided burning scalp pain extending as far ant as TMJ and ear region but not into face no fever no rash no other pain or illness called PMD who advised no clinic appt until Oct 26 and advised pt to come to the ED Review of Systems Constitutional: denies: Fever Ears: reports: Ear pain Throat: denies: Sore throat Cardiac: denies: Chest pain / pressure Respiratory: denies: Dyspnea Skin: denies: Rash Neurologic: reports: Headache (scalp really) PD PAST MEDICAL HISTORY - Past Medical History Past Medical History: Yes Cardiovascular: None Respiratory: Asthma Neuro: Seizure disorder Endocrine/Autoimmune: None GI: GI bleed, Cirrhosis CALL WORKER PERSON: None : Other HEENT: None Psych: Depression Musculoskeletal: None Derm: None - Past Surgical History Past Surgical History: Yes General: Liver surgery, Other Ortho: Other /CALL WORKER PERSON: section, Hysterectomy HEENT: Tonsil/Adenoidectomy - Present Medications Home Medications: Ambulatory Orders Medication Instructions Recorded Confirmed Mycophenolate Sodium [Mycophenolic 180 mg PO BID 03/07/15 05/03/17 Acid] Tacrolimus 1 mg PO BID 03/07/15 05/03/17 Lipase/Protease/Amylase [Creon Dr 3 tab TID 10/11/17 10/11/17 12,000 Units Capsule] Omeprazole [PriLOSEC] 1 tab DAILY 10/11/17 10/11/17 Valacyclovir HCl [Valtrex] 1,000 mg PO TID #21 tablet 10/11/17 traMADol [Ultram] 50 mg PO Q6H PRN #15 tablet 10/11/17 - Allergies Allergies/Adverse Reactions: Allergies Allergy/AdvReac Type Severity Reaction Status Date / Time promethazine HCl * Allergy Intermediate Anxiety Verified 10/11/17 10:32 [From Phenergan] sertraline HCl * Allergy Unknown Unknown Verified 10/11/17 10:32 [From Zoloft] - Social History Does the pt smoke?: No Smoking Status: Never smoker Does the pt drink ETOH?: Yes Does the pt have substance abuse?: No - Immunizations Immunizations are current?: Yes - POLST Patient has POLST: Yes POLST Status: Full Code PD ED PE NORMAL - Vitals Vital signs reviewed: Yes - General General: Alert and oriented X 3 - HEENT HEENT: PERRL, Ears normal, Moist mucous membranes, Pharynx benign, Dentition benign (no focal TTP or swelling), Other (no rash seen in scalp) - Neck Neck: Supple, no meningeal sign - Cardiac Cardiac: RRR - Respiratory Respiratory: No respiratory distress, Clear bilaterally - Derm Derm: No rash - Neuro Neuro: Alert and oriented X 3, crm 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 2-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, No motor deficit, No sensory deficit, Normal speech Results - Vitals Vitals: Vital Signs - 24 hr 10/11/17 10:28 Temperature 36.5 C Heart Rate 90 Respiratory 20 Rate Blood Pressure 102/65 O2 Saturation 100 Oxygen O2 Source Room air PD MEDICAL DECISION MAKING - ED course ED course: hx burning focal one sided pain sounds like shingles but no rash yet CTH shows no acute process gave a dose of decadron in ER will rx valtrex and steroids Departure - Departure Clinical Impression: Acute pain Condition: Good Instructions: ED Shingles Follow-Up: Huong Snow MD [Primary Care Provider] - Prescriptions: traMADol [Ultram] 50 mg PO Q6H PRN #15 tablet PRN Reason: Severe Pain Valacyclovir HCl [Valtrex] 1,000 mg PO TID #21 tablet Comments: The pain you describe sounds very like shingles but there is no rash yet. Sometimes the nerve pain of shingles can precede the rash I have prescribed an antiviral medication called valtrex - if you develop any blister scabs or rash to your scalp, please start the valtrex We gave you a single dose of decadron in the ER to decrease nerve pain and inflammation - this should last severe days - i would not recommend more steroids until you discuss with your transplant team Since your percocet did not relieve the pain, i have prescribed tramadol for you to try If the symptoms do not improve, and if you do not develop the shingles rash, please follow up with your PMD or return to the ER
[2017-10-11 14:15] VITALS: BP 119/85
== END 2017-10-11 14:24 | disposition home or self-care (01) ==
LOC: ED 10:22
DX: R51 Headache (principal); Z94.0 Kidney transplant status; Z94.4 Liver transplant status
CPT/HCPCS: 70450; 99283

== ENCOUNTER 2018-02-20 16:02 | Outpatient (CLI) | payer MEDICAID ==
[2018-02-20 16:21] LABS: BILIRUBIN,URINE NEGATIVE (NEGATIVE); GLUCOSE, URINE (UA) NEGATIVE (NEGATIVE); KETONES,URINE (UA) NEGATIVE (NEGATIVE); LEUKOCYTE ESTERASE, URINE TRACE (NEGATIVE); NITRITE,URINE NEGATIVE (NEGATIVE); OCCULT BLOOD,URINE NEGATIVE (NEGATIVE); PROTEIN,URINE NEGATIVE (NEGATIVE); UROBILINOGEN,URINE 0.2 (NORMAL) E.U./dL (NORMAL)
[2018-02-20 16:22] LABS: CLARITY,URINE CLEAR (CLEAR)
[2018-02-20 16:40] LABS: RBC,URINE 0-5 /HPF (0-5)
[2018-02-20 16:41] LABS: BACTERIA,URINE Few /HPF (None Seen); SQUAMOUS EPITHELIAL CELL,UR FEW Squamous (<= Few)
== END 2018-02-20 16:03 | disposition home or self-care (01) ==
LOC: LAB 16:02
PROVIDERS: ATTEND Family Medicine
DX: R33.9 Retention of urine, unspecified (principal); R10.9 Unspecified abdominal pain; Z94.0 Kidney transplant status
CPT/HCPCS: 81001; 81003; 87086

== ENCOUNTER 2018-11-28 09:08 | Outpatient (CLI) | payer MEDICAID | END 2018-11-28 09:09 | disposition short-term general hospital (02) | LOC: EMS 09:08 | PROVIDERS: ATTEND Surgery | DX: R29.810 Facial weakness (principal) | CPT/HCPCS: A0170; A0425; A0429; A0999 ==

== ENCOUNTER 2019-02-12 13:23 | Emergency (ER) | payer MEDICAID ==
[2019-02-12 13:54] LABS: BILIRUBIN,URINE NEGATIVE (NEGATIVE); GLUCOSE, URINE (UA) NEGATIVE (NEGATIVE); KETONES,URINE (UA) NEGATIVE (NEGATIVE); LEUKOCYTE ESTERASE, URINE NEGATIVE (NEGATIVE); NITRITE,URINE NEGATIVE (NEGATIVE); OCCULT BLOOD,URINE NEGATIVE (NEGATIVE); PROTEIN,URINE NEGATIVE (NEGATIVE); UROBILINOGEN,URINE 0.2 (NORMAL) E.U./dL (NORMAL)
[2019-02-12 13:55] LABS: CLARITY,URINE CLEAR (CLEAR)
[2019-02-12] MEDS ORDERED: SODIUM CHLORIDE 0.9% 1,000 ML IV ONE (16:38)
[2019-02-12] MEDS ORDERED: HYDROmorphone 1 MG/ML CARPUJECT IVP STA ×3 (16:40→18:36)
[2019-02-12 16:47] LABS: BASOPHILS % (AUTO) 0.7 %; EOSINOPHILS # (AUTO) 0.1 10^3/uL (0.0-0.7); EOSINOPHILS % (AUTO) 1.3 %; HGB - HEMOGLOBIN 12.2 g/dL (12.0-16.0); LYMPHOCYTES # (AUTO) 2.4 10^3/uL (1.5-3.5); LYMPHOCYTES % (AUTO) 42.2 %; MEAN CORPUSCULAR HEMOGLOBIN 31.5 pg (27.0-31.0); MEAN CORPUSCULAR HGB CONC 34.1 g/dL (32.0-36.0); MEAN CORPUSCULAR VOLUME 92.3 fL (81.0-99.0); MEAN PLATELET VOLUME 7.8 fL (7.9-10.8); MONOCYTES # (AUTO) 0.4 10^3/uL (0.0-1.0); MONOCYTES % (AUTO) 6.4 %; NEUTROPHILS # (AUTO) 2.8 10^3/uL (1.5-6.6); NEUTROPHILS % (AUTO) 49.4 %; PLT - PLATELET COUNT 274 10^3/uL (130-450); RED BLOOD COUNT 3.87 10^6/uL (4.20-5.40); RED CELL DISTRIBUTION WIDTH 13.4 % (12.0-15.0); WHITE BLOOD COUNT 5.6 x10^3/uL (4.8-10.8)
[2019-02-12 17:00] LABS: ALBUMIN 4.7 g/dL (3.2-5.5); ALBUMIN/GLOBULIN RATIO 1.5 (1.0-2.2); BILIRUBIN,TOTAL 1.4 mg/dL (0.2-1.0); CALCIUM 9.7 mg/dL (8.5-10.3); CREATININE 1.2 mg/dL (0.4-1.0); TOTAL PROTEIN 7.9 g/dL (6.7-8.2)
--- NOTE | 2019-02-12 17:51 | CT Report ---
Reason: b/l flank pain Procedure Date: 02/12/2019 Accession Number: [id number] / [id number] Procedure: CT - Abdomen/Pelvis WO CPT Code: FULL RESULT: EXAM: CT ABDOMEN AND PELVIS EXAM DATE: 02/12/2019 05:29 PM. CLINICAL HISTORY: Flank pain COMPARISONS: ABDOMEN/PELVIS W/O 09/30/2015 7:35 AM. TECHNIQUE: Routine axial helical CT imaging was performed through the abdomen and pelvis without IV contrast. Reconstructions: Coronal and sagittal. In accordance with CT protocol optimization, one or more of the following dose reduction techniques were utilized for this exam: automated exposure control, adjustment of mA and/or KV based on patient size, or use of iterative reconstructive technique. FINDINGS: Lung Bases: Unremarkable. Abdominal Organs: There is relative hepatic hyperdensity. Patient has undergone liver transplant. This is stable. No focal hepatic lesions are seen. Spleen is unremarkable. There is chronic pancreatitis. The adrenal glands are normal. The [place] kidneys are atrophic. There is a right lower quadrant transplant kidney which demonstrates no acute noncontrast abnormalities. Gallbladder/bile ducts: The gallbladder is surgically absent. There is no evidence of significant bile duct dilatation. Peritoneal Cavity: No dilated or thick-walled bowel is seen. No intraperitoneal free air or free fluid. No enlarged mesenteric or retroperitoneal lymph nodes. No evidence of appendicitis. Pelvic Organs: No bladder stones or wall thickening. Noncontrast images of the visualized pelvic organs are unremarkable. Vasculature: Unremarkable. Other: None. IMPRESSION: 1. No acute noncontrast abnormalities to account for the patient's presentation. 2. There is chronic pancreatitis. 3. Right lower quadrant transplant kidney demonstrates no significant CT abnormalities.
[2019-02-12] MEDS ORDERED: LORazepam 2 MG/ML VIAL IVP STA (18:36)
--- NOTE | 2019-02-12 19:21 | ED Physician Documentation ---
PD HPI ABD PAIN - Stated complaint Stated Complaint: ABD PX - Chief complaint Chief Complaint: Abd Pain - Additional information Additional information: 58-year-old female with a history of a liver transplant, chronic pancreatitis and a renal transplant presents the emergency department with ongoing bilateral flank pain. The patient's symptoms started several days ago and she thought she was developing a urinary tract infection she was started on Levaquin by her primary care. The patient denies any dysuria or fevers. The pain is diffuse to her abdomen and back. The patient denies any focal area of pain. No relief with her normal pain medications. The patient denies vomiting or diarrhea. No chest pain or shortness of breath. No relieving factors. No clear triggering factor. Review of Systems Constitutional: denies: Fever, Fatigue Eyes: denies: Discharge Ears: denies: Ear pain Nose: denies: Congestion Throat: denies: Sore throat Cardiac: denies: Chest pain / pressure Respiratory: denies: Cough GI: reports: Abdominal Pain. 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 SPECIALTIES COOK: None : Other HEENT: None Psych: Depression Musculoskeletal: None Derm: None - Past Surgical History Past Surgical History: Yes General: Liver surgery, Other Ortho: Other /SOYBE[employer] SPECIALTIES COOK: section, Hysterectomy HEENT: Tonsil/Adenoidectomy - Present Medications Home Medications: Ambulatory Orders Medication Instructions Recorded Confirmed Mycophenolate Sodium [Mycophenolic 180 mg PO BID 03/07/15 05/03/17 Acid] Tacrolimus 1 mg PO BID 03/07/15 05/03/17 Lipase/Protease/Amylase [Creon Dr 3 tab TID 10/11/17 10/11/17 12,000 Units Capsule] Omeprazole [PriLOSEC] 1 tab DAILY 10/11/17 10/11/17 Valacyclovir HCl [Valtrex] 1,000 mg PO TID #21 tablet 10/11/17 traMADol [Ultram] 50 mg PO Q6H PRN #15 tablet 10/11/17 Ondansetron HCl [Zofran] 4 mg PO Q6HR PRN #30 tablet 02/12/19 Oxycodone HCl/Acetaminophen 1 each PO Q6H PRN #20 tablet 02/12/19 [Percocet 5-325 mg Tablet] - Allergies Allergies/Adverse Reactions: Allergies Allergy/AdvReac Type Severity Reaction Status Date / Time promethazine HCl * Allergy Intermediate Anxiety Verified 02/12/19 13:41 [From Phenergan] sertraline HCl * Allergy Unknown Unknown Verified 02/12/19 13:41 [From Zoloft] - Social History Does the pt smoke?: No Smoking Status: Never smoker Does the pt drink ETOH?: Yes Does the pt have substance abuse?: No - Immunizations Immunizations are current?: Yes - POLST Patient has POLST: Yes POLST Status: Full Code PD ED PE NORMAL - General General: Alert and oriented X 3, Other (The patient appears quite uncomfortable) - HEENT HEENT: Atraumatic, PERRL, EOMI - Cardiac Cardiac: RRR, Strong equal pulses - Respiratory Respiratory: No respiratory distress - Abdomen Abdomen: Soft, Non distended, Other (The patient has generalized abdominal tenderness, there is no rebound or peritoneal signs) - Derm Derm: Normal color - Extremities Extremities: No deformity - Neuro Neuro: Alert and oriented X 3, Normal speech - Psych Psych: Normal affect Results - Vitals Vitals: Vital Signs - 24 hr 02/12/19 02/12/19 02/12/19 13:36 15:52 16:37 Temperature 36.7 C Heart Rate 77 84 61 Respiratory 16 18 18 Rate Blood Pressure 144/93 H 143/91 H 126/80 O2 Saturation 99 99 100 02/12/19 02/12/19 18:48 19:31 Temperature Heart Rate 74 98 Respiratory 18 16 Rate Blood Pressure 142/95 H 153/106 H O2 Saturation 98 97 Oxygen O2 Source Room air - Labs Labs: Laboratory Tests 02/12/19 02/12/19 02/12/19 13:41 16:27 16:27 WBC 5.6 RBC 3.87 L Hgb 12.2 Hct 35.8 L MCV 92.3 MCH 31.5 H MCHC 34.1 RDW 13.4 Plt Count 274 MPV 7.8 L Neut # (Auto) 2.8 Lymph # (Auto) 2.4 [place] # (Auto) 0.4 Eos # (Auto) 0.1 Baso # (Auto) 0.0 Absolute Nucleated RBC 0.00 Nucleated RBC % 0.0 Sodium 140 Potassium 3.5 Chloride 104 Carbon Dioxide 27 Anion Gap 9.0 BUN 27 H Creatinine 1.2 H Estimated GFR (MDRD) 46 L Glucose 111 H Lactic Acid Calcium 9.7 Total Bilirubin 1.4 H AST 18 ALT 15 Alkaline Phosphatase 68 Total Protein 7.9 Albumin 4.7 Globulin 3.2 Albumin/Globulin Ratio 1.5 Lipase 17 L Urine Color YELLOW Urine Clarity CLEAR Urine pH 6.0 Ur Specific [place] 1.015 Urine Protein NEGATIVE Urine Glucose (UA) NEGATIVE Urine Ketones NEGATIVE Urine Occult Blood NEGATIVE Urine Nitrite NEGATIVE Urine Bilirubin NEGATIVE Urine Urobilinogen 0.2 (NORMAL) Ur Leukocyte Esterase NEGATIVE Ur Microscopic Review NOT INDICATED Urine Culture Comments NOT INDICATED 02/12/19 16:27 WBC RBC Hgb Hct MCV MCH MCHC RDW Plt Count MPV Neut # (Auto) Lymph # (Auto) [place] # (Auto) Eos # (Auto) Baso # (Auto) Absolute Nucleated RBC Nucleated RBC % Sodium Potassium Chloride Carbon Dioxide Anion Gap BUN Creatinine Estimated GFR (MDRD) Glucose Lactic Acid 0.8 Calcium Total Bilirubin AST ALT Alkaline Phosphatase Total Protein Albumin Globulin Albumin/Globulin Ratio Lipase Urine Color Urine Clarity Urine pH Ur Specific [place] Urine Protein Urine Glucose (UA) Urine Ketones Urine Occult Blood Urine Nitrite Urine Bilirubin Urine Urobilinogen Ur Leukocyte Esterase Ur Microscopic Review Urine Culture Comments - Rads (name of study) CT abd/pelvis Radiology: Final report received, See rad report (IMPRESSION: 1. No acute noncontrast abnormalities to account for the patient's presentation. 2. There is chronic pancreatitis. 3. Right lower quadrant transplant kidney demonstrates no significant CT abnormalities. ) PD MEDICAL DECISION MAKING - ED course ED course: The patient's workup does not reveal any acute etiology to explain her pain. Presently, on reevaluation the patient is resting comfortably. There is no indication for admission to the hospital or acute surgical consultation. The patient is requesting discharge home, the patient will follow up with her pr imary care. I advised returning to the emergency department for any worsening or any concerns. Departure - Departure Disposition: 01 Home, Self Care Clinical Impression: Abdominal pain Qualifiers: Abdominal location: unspecified location Qualified Code(s): R10.9 - Unspecified abdominal pain Chronic pancreatitis Qualifiers: Pancreatitis type: other Qualified Code(s): K86.1 - Other chronic pancreatitis Condition: Good Instructions: Pancreatitis Chronic Dc, ED Abdominal Pain Unkn Cause Follow-Up: Huong Snow MD [Primary Care Provider] - Within 3 Days Prescriptions: Ondansetron HCl [Zofran] 4 mg PO Q6HR PRN #30 tablet PRN Reason: Nausea / Vomiting Oxycodone HCl/Acetaminophen [Percocet 5-325 mg Tablet] 1 each PO Q6H PRN #20 tablet PRN Reason: pain Comments: Please return to the emergency department for any worsening or any concerns
[2019-02-12 19:33] VITALS: BP 153/106
== END 2019-02-12 19:37 | disposition home or self-care (01) ==
LOC: ED 13:23
DX: R10.84 Generalized abdominal pain (principal); K86.1 Other chronic pancreatitis; Z94.0 Kidney transplant status
CPT/HCPCS: 36415; 74176; 80053; 81003; 83605; 83690; 85025; 87040; 96361; 96374; 96375; 96376; 99283; 99284; J1170; J2060; 81001; 87086

== ENCOUNTER 2019-03-12 08:00 | Outpatient (CLI) | payer MEDICAID ==
[2019-03-12 18:05] LABS: BASOPHILS % (AUTO) 0.6 %; EOSINOPHILS # (AUTO) 0.1 10^3/uL (0.0-0.7); EOSINOPHILS % (AUTO) 2.9 %; LYMPHOCYTES # (AUTO) 1.7 10^3/uL (1.5-3.5); LYMPHOCYTES % (AUTO) 42.4 %; MEAN CORPUSCULAR HEMOGLOBIN 31.5 pg (27.0-31.0); MEAN CORPUSCULAR HGB CONC 33.7 g/dL (32.0-36.0); MEAN CORPUSCULAR VOLUME 93.5 fL (81.0-99.0); MONOCYTES # (AUTO) 0.2 10^3/uL (0.0-1.0); MONOCYTES % (AUTO) 5.8 %; NEUTROPHILS # (AUTO) 1.9 10^3/uL (1.5-6.6); NEUTROPHILS % (AUTO) 48.3 %; PLT - PLATELET COUNT 247 10^3/uL (130-450); RED CELL DISTRIBUTION WIDTH 12.8 % (12.0-15.0)
[2019-03-12 18:27] LABS: CALCIUM 9.2 mg/dL (8.5-10.3); CREATININE 1.1 mg/dL (0.4-1.0); PHOSPHORUS 3.6 mg/dL (2.5-4.6)
[2019-03-12 18:51] LABS: BILIRUBIN,URINE NEGATIVE (NEGATIVE); GLUCOSE, URINE (UA) NEGATIVE (NEGATIVE); KETONES,URINE (UA) NEGATIVE (NEGATIVE); LEUKOCYTE ESTERASE, URINE NEGATIVE (NEGATIVE); NITRITE,URINE NEGATIVE (NEGATIVE); OCCULT BLOOD,URINE NEGATIVE (NEGATIVE); PH,URINE 5.5 PH (5.0-7.5); PROTEIN,URINE NEGATIVE (NEGATIVE); UROBILINOGEN,URINE 0.2 (NORMAL) E.U./dL (NORMAL)
[2019-03-12 18:53] LABS: CLARITY,URINE CLEAR (CLEAR)
== END 2019-03-12 23:59 | disposition home or self-care (01) ==
LOC: LAB.F 08:00
PROVIDERS: ATTEND Internal Medicine Nephrology
DX: Z94.4 Liver transplant status (principal); Z51.81 Encounter for therapeutic drug level monitoring; T86.10 Unspecified complication of kidney transplant
CPT/HCPCS: 36415; 80048; 80197; 81001; 81003; 83735; 84100; 85025; 87086

== ENCOUNTER 2019-10-24 11:23 | Emergency (ER) | payer MEDICAID ==
[2019-10-24 12:34] LABS: BASOPHILS % (AUTO) 0.3 %; EOSINOPHILS % (AUTO) 0.3 %; HGB - HEMOGLOBIN 11.8 g/dL (12.0-16.0); LYMPHOCYTES # (AUTO) 1.1 10^3/uL (1.5-3.5); LYMPHOCYTES % (AUTO) 12.3 %; MEAN CORPUSCULAR HEMOGLOBIN 31.2 pg (27.0-31.0); MEAN CORPUSCULAR HGB CONC 33.3 g/dL (32.0-36.0); MEAN CORPUSCULAR VOLUME 93.7 fL (81.0-99.0); MEAN PLATELET VOLUME 9.2 fL (7.9-10.8); MONOCYTES # (AUTO) 0.4 10^3/uL (0.0-1.0); MONOCYTES % (AUTO) 4.8 %; NEUTROPHILS # (AUTO) 7.5 10^3/uL (1.5-6.6); NEUTROPHILS % (AUTO) 81.8 %; PLT - PLATELET COUNT 279 10^3/uL (130-450); RED BLOOD COUNT 3.78 10^6/uL (4.20-5.40); RED CELL DISTRIBUTION WIDTH 12.2 % (12.0-15.0); WHITE BLOOD COUNT 9.2 x10^3/uL (4.8-10.8)
[2019-10-24 12:37] LABS: BILIRUBIN,URINE NEGATIVE (NEGATIVE); CLARITY,URINE HAZY (CLEAR); GLUCOSE, URINE (UA) NEGATIVE (NEGATIVE); KETONES,URINE (UA) NEGATIVE (NEGATIVE); LEUKOCYTE ESTERASE, URINE SMALL (NEGATIVE); NITRITE,URINE NEGATIVE (NEGATIVE); OCCULT BLOOD,URINE NEGATIVE (NEGATIVE); PROTEIN,URINE NEGATIVE (NEGATIVE); UROBILINOGEN,URINE 0.2 (NORMAL) E.U./dL (NORMAL)
[2019-10-24 12:45] LABS: BACTERIA,URINE Many /HPF (None Seen); RBC,URINE 0-5 /HPF (0-5); SQUAMOUS EPITHELIAL CELL,UR MANY Squamous (<= Few)
[2019-10-24 12:47] LABS: ALBUMIN 4.6 g/dL (3.2-5.5); ALBUMIN/GLOBULIN RATIO 1.3 (1.0-2.2); BILIRUBIN,TOTAL 1.4 mg/dL (0.2-1.0); CALCIUM 9.2 mg/dL (8.5-10.3); CREATININE 1.1 mg/dL (0.4-1.0); TOTAL PROTEIN 8.2 g/dL (6.7-8.2)
[2019-10-24] MEDS ORDERED: ONDANSETRON 4 MG/2 ML VIAL IVP STA (12:57)
[2019-10-24] MEDS ORDERED: KETOROLAC 30 MG/ML VIAL IVP STA (12:57)
[2019-10-24] MEDS ORDERED: SODIUM CHLORIDE 0.9% 1,000 ML IV ONE (12:57)
--- NOTE | 2019-10-24 13:00 | ED Physician Documentation ---
History of Present Illness - Stated complaint Stated Complaint: SINUS/RT EAR PX - Chief complaint Chief Complaint: Heent - History obtained from History obtained from: Patient - History of Present Illness Timing: How many days ago (2-3) Pain level max: 6 Pain level now: 5 - Additonal information Additional information: 59-year-old female is several years status post a liver and renal transplant. 2 days ago she started having sinus congestion, ear and right ear pain. Had nausea and vomiting as well. She states that she had a fever yesterday as well. States that her abdomen is sore from vomiting. Has not taken anything for the vomiting. Was treated with Levaquin back in August for a sinus infection. She states that she has a mild cough. Nothing makes this better. She states that it is worse with moving. Review of Systems Constitutional: reports: Fever, Chills Ears: reports: Ear pain (Right ear pain) Nose: reports: Congestion, Sinus pressure / pain Respiratory: denies: Dyspnea, Wheezing GI: denies: Nausea, Vomiting, Diarrhea Skin: denies: Rash Musculoskeletal: denies: Neck pain, Back pain Neurologic: reports: Headache (Right-sided headache) PD PAST MEDICAL HISTORY - Past Medical History Cardiovascular: None Respiratory: Asthma Endocrine/Autoimmune: None GI: GI bleed, Cirrhosis SERVICE DIRECTOR: None : Other HEENT: None Psych: Depression Musculoskeletal: None Derm: None - Past Surgical History Past Surgical History: Yes General: Liver surgery, Other Ortho: Other /SERVICE DIRECTOR: section, Hysterectomy HEENT: Tonsil/Adenoidectomy - Present Medications Home Medications: Ambulatory Orders Medication Instructions Recorded Confirmed Mycophenolate Sodium [Mycophenolic 180 mg PO BID 03/07/15 05/03/17 Acid] Tacrolimus 1 mg PO BID 03/07/15 05/03/17 Lipase/Protease/Amylase [Creon Dr 3 tab TID 10/11/17 10/11/17 12,000 Units Capsule] Omeprazole [PriLOSEC] 1 tab DAILY 10/11/17 10/11/17 Valacyclovir HCl [Valtrex] 1,000 mg PO TID #21 tablet 10/11/17 traMADol [Ultram] 50 mg PO Q6H PRN #15 tablet 10/11/17 Ondansetron HCl [Zofran] 4 mg PO Q6HR PRN #30 tablet 02/12/19 Oxycodone HCl/Acetaminophen 1 each PO Q6H PRN #20 tablet 02/12/19 [Percocet 5-325 mg Tablet] Amox/Clav 875/125 [Augmentin] 1 each PO Q12H #20 tablet 10/24/19 Ondansetron Odt [Zofran] 4 mg TL Q6H PRN #10 tablet 10/24/19 - Allergies Allergies/Adverse Reactions: Allergies Allergy/AdvReac Type Severity Reaction Status Date / Time promethazine HCl * Allergy Intermediate Anxiety Verified 10/24/19 11:34 [From Phenergan] sertraline HCl * Allergy Unknown Unknown Verified 10/24/19 11:34 [From Zoloft] - Social History Does the pt smoke?: No Smoking Status: Never smoker Does the pt drink ETOH?: Yes Does the pt have substance abuse?: No - Immunizations Immunizations are current?: Yes - POLST Patient has POLST: Yes POLST Status: Full Code PD ED PE NORMAL - Vitals Vital signs reviewed: Yes - General General: Alert and oriented X 3, No acute distress, Well developed/nourished - HEENT HEENT: Moist mucous membranes, Pharynx benign, Other (Left TM is normal. Right TM is erythematous, dull, bulging with loss of landmarks. Purulent fluid present.) - Neck Neck: Supple, no meningeal sign, Other (Shotty anterior lymphadenopathy) - Cardiac Cardiac: RRR, Strong equal pulses - Respiratory Respiratory: No respiratory distress, Clear bilaterally - Abdomen Abdomen: Soft, Non tender, Non distended - Back Back: No CVA TTP - Derm Derm: Warm and dry, No rash - Neuro Neuro: Alert and oriented X 3 - Psych Psych: Normal mood, Normal affect Results - Vitals Vitals: Vital Signs - 24 hr 10/24/19 11:29 Temperature 36.9 C Heart Rate 87 Respiratory 20 Rate Blood Pressure 158/91 H O2 Saturation 100 Oxygen O2 Source Room air - Labs Labs: Laboratory Tests 10/24/19 10/24/19 10/24/19 12:25 12:25 12:25 WBC 9.2 RBC 3.78 L Hgb 11.8 L Hct 35.4 L MCV 93.7 MCH 31.2 H MCHC 33.3 RDW 12.2 Plt Count 279 MPV 9.2 Neut # (Auto) 7.5 H Lymph # (Auto) 1.1 L [place] # (Auto) 0.4 Eos # (Auto) 0.0 Baso # (Auto) 0.0 Absolute Nucleated RBC 0.00 Nucleated RBC % 0.0 Sodium 137 Potassium 4.4 Chloride 104 Carbon Dioxide 24 Anion Gap 9.0 BUN 23 H Creatinine 1.1 H Estimated GFR (MDRD) 51 L Glucose 107 H Calcium 9.2 Total Bilirubin 1.4 H AST 20 ALT 18 Alkaline Phosphatase 69 Total Protein 8.2 Albumin 4.6 Globulin 3.6 Albumin/Globulin Ratio 1.3 Lipase 18 L Urine Color YELLOW Urine Clarity HAZY Urine pH 5.0 Ur Specific [place] 1.020 Urine Protein NEGATIVE Urine Glucose (UA) NEGATIVE Urine Ketones NEGATIVE Urine Occult Blood NEGATIVE Urine Nitrite NEGATIVE Urine Bilirubin NEGATIVE Urine Urobilinogen 0.2 (NORMAL) Ur Leukocyte Esterase SMALL H Urine RBC 0-5 Urine WBC 11-25 H Ur Squamous Epith Cells MANY Squamous H Urine Bacteria Many H Ur Microscopic Review INDICATED Urine Culture Comments NOT INDICATED PD MEDICAL DECISION MAKING - ED course Complexity details: reviewed results, re-evaluated patient, considered juancarlos michelle, d/w patient ED course: Patient with a right acute otitis media. Appears to have sinusitis as well. Possible UTI, given her renal transplant patient, we will cover with Augmentin for all of these things. She is well-appearing, nontoxic. Afebrile. No hypoxia. Patient counseled regarding signs and symptoms for which I believe and urgent re-evaluation would be necessary. Patient with good understanding of and agreement to plan and is comfortable going home at this time This document was made in part using voice recognition software. While efforts are made to proofread this document, sound alike and grammatical errors may occur. Given Zofran and IV fluids here. Tolerating p.o. without difficulty. Departure - Departure Disposition: 01 Home, Self Care Clinical Impression: Liver transplant recipient, Kidney transplant recipient, Dehydration Otitis media Qualifiers: Otitis media type: suppurative Chronicity: acute Laterality: right Recurrence: not specified as recurrent Spontaneous tympanic membrane rupture: without spontaneous rupture Qualified Code(s): H66.001 - Acute suppurative otitis media without spontaneous rupture of ear drum, right ear UTI (urinary tract infection) Qualifiers: Urinary tract infection type: acute cystitis Hematuria presence: without hematuria Qualified Code(s): N30.00 - Acute cystitis without hematuria Condition: Good Instructions: ED Otitis Media Acute Adult, ED UTI Cystitis Female Follow-Up: Huong Snow MD [Primary Care Provider] - Within 1 week Prescriptions: Amox/Clav 875/125 [Augmentin] 1 each PO Q12H #20 tablet Ondansetron Odt [Zofran] 4 mg TL Q6H PRN #10 tablet PRN Reason: Nausea / Vomiting Comments: Take all antibiotics until gone. Return if you worsen. Drink plenty of fluids and rest.
[2019-10-24 14:17] VITALS: BP 148/62
== END 2019-10-24 14:18 | disposition home or self-care (01) ==
LOC: ED 11:23
DX: E86.0 Dehydration (principal); H66.001 Acute suppurative otitis media without spontaneous rupture of ear drum, right ear; N30.00 Acute cystitis without hematuria; J34.89 Other specified disorders of nose and nasal sinuses; R11.2 Nausea with vomiting, unspecified; Z94.0 Kidney transplant status; Z94.4 Liver transplant status
CPT/HCPCS: 36415; 80053; 81001; 81003; 83690; 85025; 87086; 96361; 96374; 99284

== ENCOUNTER 2021-02-05 03:10 | Emergency (ER) | payer MEDICAID ==
[2021-02-05 03:22] VITALS: BP 144/95
[2021-02-05] MEDS ORDERED: KETOROLAC 30 MG/ML VIAL IM STA (03:39)
[2021-02-05] MEDS ORDERED: AMOX/CLAV 875 MG/125 MG TABLET PO STA (03:40)
[2021-02-05] MEDS ORDERED: CHERRY SYRUP 10 ML UDC PO ONE (03:41)
[2021-02-05] MEDS ORDERED: DEXAMETHASONE 10 MG/ML VIAL PO STA (03:41)
--- NOTE | 2021-02-05 03:50 | ED Physician Documentation ---
PD HPI HEENT - Stated complaint Stated Complaint: CONGESTION/HEAD PX - Chief complaint Chief Complaint: Resp - History obtained from History obtained from: Patient - History of Present Illness Timing - onset: Yesterday Timing - duration: Days (2) Timing - details: Gradual onset, Still present Location: Right ear, Sinuses Improves: Medication Worsens: Swalllowing Associated symptoms: Congestion, Rhinorrhea, Headache, Cough (mild). No: Fever Similar symptoms before: Diagnosis (OM and sinusitis) Recently seen: Not recently seen - Additional information Additional information: 60-year-old female who is the recipient of a successful liver and kidney transplant and 2013 has developed symptoms again of pain and congestion in her sinuses and pain in her right ear. She has a slight cough she does not have fever nausea or vomiting. She has had these symptoms previously with sinus infection and ear infection. She was last treated in our emergency department for similar infection in 2019. She last saw her transplant surgeon 4 days ago. She has done well has had no episodes of rejection and has been stable on her medications. Review of Systems Constitutional: denies: Fever Eyes: denies: Decreased vision Ears: reports: Ear pain Nose: reports: Rhinorrhea / runny nose, Congestion, Sinus pressure / pain Throat: denies: Sore throat Cardiac: denies: Chest pain / pressure, Palpitations Respiratory: reports: Cough. denies: Dyspnea GI: denies: Nausea, Vomiting, Diarrhea : denies: Dysuria, Frequency PD PAST MEDICAL HISTORY - Past Medical History Cardiovascular: None Respiratory: Asthma Endocrine/Autoimmune: None GI: GI bleed, Cirrhosis PREVENTIVE MEDICINE PHYSICIAN: None : Other HEENT: None Psych: Depression Musculoskeletal: None Derm: None - Past Surgical History Past Surgical History: Yes General: Liver surgery, Other Ortho: Other /PREVENTIVE MEDICINE PHYSICIAN: section, Hysterectomy HEENT: Tonsil/Adenoidectomy - Present Medications Home Medications: Ambulatory Orders Medication Instructions Recorded Confirmed Mycophenolate Sodium [Mycophenolic 180 mg PO BID 03/07/15 05/03/17 Acid] Tacrolimus 1 mg PO BID 03/07/15 05/03/17 Lipase/Protease/Amylase [Creon Dr 3 tab TID 10/11/17 10/11/17 12,000 Units Capsule] Omeprazole [PriLOSEC] 1 tab DAILY 10/11/17 10/11/17 Valacyclovir HCl [Valtrex] 1,000 mg PO TID #21 tablet 10/11/17 traMADol [Ultram] 50 mg PO Q6H PRN #15 tablet 10/11/17 Ondansetron HCl [Zofran] 4 mg PO Q6HR PRN #30 tablet 02/12/19 Oxycodone HCl/Acetaminophen 1 each PO Q6H PRN #20 tablet 02/12/19 [Percocet 5-325 mg Tablet] Amox/Clav 875/125 [Augmentin] 1 each PO Q12H #20 tablet 10/24/19 Ondansetron Odt [Zofran] 4 mg TL Q6H PRN #10 tablet 10/24/19 Amox/Clav 875/125 [Augmentin] 1 each PO Q12H #20 tablet 02/05/21 traMADol [Ultram] 50 - 100 mg PO Q6H PRN #20 tablet 02/05/21 - Allergies Allergies/Adverse Reactions: Allergies Allergy/AdvReac Type Severity Reaction Status Date / Time promethazine HCl * Allergy Intermediate Anxiety Verified 02/05/21 03:22 [From Phenergan] sertraline HCl * Allergy Unknown Unknown Verified 02/05/21 03:22 [From Zoloft] - Social History Does the pt smoke?: No Smoking Status: Never smoker Does the pt drink ETOH?: Yes Does the pt have substance abuse?: No - Immunizations Immunizations are current?: Yes - POLST Patient has POLST: Yes POLST Status: Full Code PD ED PE NORMAL - Vitals Vital signs reviewed: Yes (Hypertensive) - General General: Alert and oriented X 3, No acute distress, Well developed/nourished - HEENT HEENT: Atraumatic, PERRL, EOMI, Other (The right TM is erythematous in the central portion with marked distortion of the landmarks and tympanosclerosis. The left TM is inflamed in the attic and is densely inflamed.) - Neck Neck: Supple, no meningeal sign, No bony TTP - Cardiac Cardiac: RRR, No murmur - Respiratory Respiratory: No respiratory distress, Clear bilaterally - Abdomen Abdomen: Normal bowel sounds, Soft, Non tender, Non distended, No organomegaly - Back Back: No CVA TTP, No spinal TTP - Derm Derm: Normal color, Warm and dry, No rash - Extremities Extremities: No deformity, No edema - Neuro Neuro: Alert and oriented X 3, information technology auditor 2-12 intact, No motor deficit, No sensory deficit, Normal speech Eye Opening: Spontaneous Motor: Obeys Commands Verbal: Oriented GCS Score: 15 - Psych Psych: Normal mood, Normal affect Results - Vitals Vitals: Vital Signs - 24 hr 02/05/21 03:19 Temperature 36.3 C L Heart Rate 68 Respiratory 16 Rate Blood Pressure 144/95 H O2 Saturation 98 Oxygen O2 Source Room air PD MEDICAL DECISION MAKING - ED course Complexity details: reviewed old records, considered differential, d/w patient ED course: 60-year-old transplant patient with again a sinus infection shows up to the emergency department 3:30 in the morning a day and a half after her symptoms began when she is unable to sleep. She has pain to the side of her face to her right maxillary sinus and to her right ear. On exam she has obvious otitis. She does not appear particularly ill. She is treated in the emergency department for otitis with dexamethasone Toradol and Augmentin. We will place her on a course of Augmentin and we will provide her with some tramadol for pain control. Departure - Departure Disposition: 01 Home, Self Care Clinical Impression: Otitis media Qualifiers: Otitis media type: suppurative Chronicity: acute Laterality: bilateral Recurrence: recurrent Spontaneous tympanic membrane rupture: without spontaneous rupture Qualified Code(s): H66.006 - Acute suppurative otitis media without spontaneous rupture of ear drum, recurrent, bilateral Condition: Stable Instructions: ED Otitis Media Acute Adult Follow-Up: Oscar Leach MD [Primary Care Provider] - Prescriptions: Amox/Clav 875/125 [Augmentin] 1 each PO Q12H #20 tablet traMADol [Ultram] 50 - 100 mg PO Q6H PRN #20 tablet PRN Reason: Pain
== END 2021-02-05 03:58 | disposition home or self-care (01) ==
LOC: ED 03:10
DX: H66.006 Acute suppurative otitis media without spontaneous rupture of ear drum, recurrent, bilateral (principal); Z94.0 Kidney transplant status; Z94.4 Liver transplant status
CPT/HCPCS: 96372; 99283; 99284; A9270

== ENCOUNTER 2021-02-23 07:44 | Emergency (ER) | payer MEDICAID ==
[2021-02-23 08:11] LABS: BILIRUBIN,URINE NEGATIVE (NEGATIVE); GLUCOSE, URINE (UA) NEGATIVE (NEGATIVE); KETONES,URINE (UA) NEGATIVE (NEGATIVE); LEUKOCYTE ESTERASE, URINE SMALL (NEGATIVE); NITRITE,URINE POSITIVE (NEGATIVE); OCCULT BLOOD,URINE MODERATE (NEGATIVE); PH,URINE 5.5 PH (5.0-7.5); PROTEIN,URINE 30 mg/dL (NEGATIVE); UROBILINOGEN,URINE 1 (NORMAL) E.U./dL (NORMAL)
--- NOTE | 2021-02-23 08:16 | ED Physician Documentation ---
History of Present Illness - Stated complaint Stated Complaint: BODY PX/NAUSEA - Chief complaint Chief Complaint: UTI - History obtained from History obtained from: Patient - History of Present Illness Timing: How many days ago (2) - Additonal information Additional information: 60-year-old female with a history of kidney and liver transplant has developed urinary urgency frequency dysuria nausea flank pain and fever over the past 2 days. She slept poorly last night and has come to the emergency department this morning with symptoms of urinary tract infection. She indicates that she has recently had a sinus infection the sinuses seem to get somewhat better she continues to have a cough. Review of Systems Constitutional: reports: Fever, Chills, Myalgias Eyes: denies: Decreased vision Ears: denies: Ear pain Nose: reports: Congestion. denies: Rhinorrhea / runny nose Throat: denies: Sore throat Cardiac: denies: Chest pain / pressure, Palpitations Respiratory: reports: Cough. denies: Dyspnea GI: reports: Nausea, Vomiting. denies: Abdominal Pain : reports: Dysuria, Frequency Skin: denies: Rash Musculoskeletal: reports: Back pain. 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 : Other HEENT: None Psych: Depression Musculoskeletal: None Derm: None - Past Surgical History Past Surgical History: Yes General: Liver surgery, Other Ortho: Other /WIRE STITCHER MACHINE: section, Hysterectomy HEENT: Tonsil/Adenoidectomy - Present Medications Home Medications: Ambulatory Orders Medication Instructions Recorded Confirmed Mycophenolate Sodium [Mycophenolic 180 mg PO BID 03/07/15 02/23/21 Acid] Tacrolimus 1 mg PO BID 03/07/15 02/23/21 Amox/Clav 875/125 [Augmentin] 1 each PO Q12H #14 tablet 02/23/21 Lipase/Protease/Amylase [Karen Cummins 3 cap ORAL TID 02/23/21 02/23/21 12,000 Units Capsule] - Allergies Allergies/Adverse Reactions: Allergies Allergy/AdvReac Type Severity Reaction Status Date / Time promethazine HCl * Allergy Intermediate Anxiety Verified 02/23/21 07:50 [From Phenergan] sertraline HCl * Allergy Unknown Unknown Verified 02/23/21 07:50 [From Zoloft] - Social History Does the pt smoke?: No Smoking Status: Never smoker Does the pt drink ETOH?: No Does the pt have substance abuse?: No - Immunizations Immunizations are current?: Yes - POLST Patient has POLST: Yes POLST Status: Full Code PD ED PE NORMAL - Vitals Vital signs reviewed: Yes (tachy and hypertensive ) - General General: Alert and oriented X 3, No acute distress, Well developed/nourished - HEENT HEENT: Atraumatic, PERRL, EOMI - Neck Neck: Supple, no meningeal sign - Cardiac Cardiac: RRR, No murmur - Respiratory Respiratory: No respiratory distress, Clear bilaterally - Abdomen Abdomen: Normal bowel sounds, Soft, Non tender, Non distended, No organomegaly - Back Back: No spinal TTP, Other (CVA tenderness is bilateral) - Derm Derm: Normal color, Warm and dry, No rash - Extremities Extremities: No deformity, No edema - Neuro Neuro: Alert and oriented X 3, 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, No motor deficit, No sensory deficit, Normal speech Eye Opening: Spontaneous Motor: Obeys Commands Verbal: Oriented GCS Score: 15 - Psych Psych: Normal mood, Normal affect Results - Vitals Vitals: Vital Signs - 24 hr 02/23/21 02/23/21 07:50 10:36 Temperature 37.2 C 37.5 C Heart Rate 104 H 101 H Respiratory 16 16 Rate Blood Pressure 151/81 H 139/86 H O2 Saturation 98 96 Oxygen O2 Source Room air - Labs Labs: Laboratory Tests 02/23/21 02/23/21 02/23/21 07:55 08:22 08:22 WBC 10.1 RBC 3.97 L Hgb 12.5 Hct 37.6 MCV 94.7 MCH 31.5 H MCHC 33.2 RDW 12.5 Plt Count 238 MPV 9.8 Neut # (Auto) 8.5 H Lymph # (Auto) 0.8 L [place] # (Auto) 0.7 Eos # (Auto) 0.0 Baso # (Auto) 0.0 Absolute Nucleated RBC 0.00 Nucleated RBC % 0.0 Sodium 136 Potassium 4.4 Chloride 101 Carbon Dioxide 23 Anion Gap 12.0 BUN 23 H Creatinine 1.3 H Estimated GFR (MDRD) 42 L Glucose 132 H Calcium 9.3 Total Bilirubin 2.2 H AST 22 ALT 25 Alkaline Phosphatase 71 Total Protein 7.8 Albumin 4.3 Globulin 3.5 Albumin/Globulin Ratio 1.2 Lipase 15 L Urine Color DARK YELLOW Urine Clarity HAZY Urine pH 5.5 Ur Specific [place] 1.020 Urine Protein 30 H Urine Glucose (UA) NEGATIVE Urine Ketones NEGATIVE Urine Occult Blood MODERATE H Urine Nitrite POSITIVE H Urine Bilirubin NEGATIVE Urine Urobilinogen 1 (NORMAL) Ur Leukocyte Esterase SMALL H Urine RBC 6-10 H Urine WBC >25 H Ur Squamous Epith Cells FEW Squamous Urine Bacteria Few Ur Microscopic Review INDICATED Urine Culture Comments INDICATED PD MEDICAL DECISION MAKING - ED course Complexity details: reviewed results, re-evaluated patient, considered differential, d/w patient ED course: 60-year-old female with a history of urinary urgency frequency dysuria flank pain fever and nausea feels like she has pyelonephritis. She has urine that appears infected under the microscope. She is recipient of a double transplant and she is immunocompromised. Treatment is warranted. She is administered intravenous Rocephin and we will place her on Augmentin. Departure - Departure Disposition: 01 Home, Self Care Clinical Impression: Pyelonephritis Condition: Stable Instructions: ED Kidney Infec Female Follow-Up: Oscar Leach MD [Primary Care Provider] - Prescriptions: Amox/Clav 875/125 [Augmentin] 1 each PO Q12H #14 tablet Discharge Date/Time: 02/23/21 10:42
[2021-02-23] MEDS ORDERED: SODIUM CHLORIDE 0.9% 1,000 ML IV STA (08:17)
[2021-02-23] MEDS ORDERED: ONDANSETRON 4 MG/2 ML VIAL IVP STA (08:17)
[2021-02-23 08:19] LABS: CLARITY,URINE HAZY (CLEAR)
[2021-02-23 08:23] LABS: BACTERIA,URINE Few /HPF (None Seen); SQUAMOUS EPITHELIAL CELL,UR FEW Squamous (<= Few); WBC,URINE >25 /HPF (0-5)
[2021-02-23 08:29] LABS: BASOPHILS % (AUTO) 0.3 %; EOSINOPHILS % (AUTO) 0.3 %; HCT - HEMATOCRIT 37.6 % (37.0-47.0); HGB - HEMOGLOBIN 12.5 g/dL (12.0-16.0); LYMPHOCYTES # (AUTO) 0.8 10^3/uL (1.5-3.5); LYMPHOCYTES % (AUTO) 7.5 %; MEAN CORPUSCULAR HEMOGLOBIN 31.5 pg (27.0-31.0); MEAN CORPUSCULAR HGB CONC 33.2 g/dL (32.0-36.0); MEAN CORPUSCULAR VOLUME 94.7 fL (81.0-99.0); MEAN PLATELET VOLUME 9.8 fL (7.9-10.8); MONOCYTES # (AUTO) 0.7 10^3/uL (0.0-1.0); MONOCYTES % (AUTO) 6.6 %; NEUTROPHILS # (AUTO) 8.5 10^3/uL (1.5-6.6); NEUTROPHILS % (AUTO) 84.8 %; PLT - PLATELET COUNT 238 10^3/uL (130-450); RED BLOOD COUNT 3.97 10^6/uL (4.20-5.40); RED CELL DISTRIBUTION WIDTH 12.5 % (12.0-15.0); WHITE BLOOD COUNT 10.1 x10^3/uL (4.8-10.8)
[2021-02-23] MEDS ORDERED: cefTRIAXone 1 GM in SODIUM CHLORIDE 0.9% MINIBAG 100 ML IV STA (08:31)
[2021-02-23 08:38] LABS: ALBUMIN 4.3 g/dL (3.2-5.5); ALBUMIN/GLOBULIN RATIO 1.2 (1.0-2.2); BILIRUBIN,TOTAL 2.2 mg/dL (0.2-1.0); CALCIUM 9.3 mg/dL (8.5-10.3); CREATININE 1.3 mg/dL (0.4-1.0); POTASSIUM 4.4 mmol/L (3.5-5.0); TOTAL PROTEIN 7.8 g/dL (6.7-8.2)
[2021-02-23] MEDS ORDERED: KETOROLAC 30 MG/ML VIAL IVP STA (09:29)
[2021-02-23 10:37] VITALS: BP 139/86
--- OUTSIDE RECORDS SUMMARY | 2021-03-02 22:06 | EXTERNAL MEDICAL SUMMARY RPT | Continuity of Care Document ---
:1960 Demographics Phone Unavailable Preferred Language Georgian Marital Status Unknown Adventism Affiliation Unknown Race Unknown Ethnic Group Unknown Author Organization [place] Address [address] [id number] Phone Care Team Providers Name Role Phone Leach Unavailable Unavailable Leach Unavailable Unavailable Problems date description facility [id number] Contact with and (suspected) exposure t o COVID-19 [facility] [id number] [facility] Medications date description facility 20201214 benzonatate 100 MG Oral Capsule [facility] 20201214 Betamethasone 0.5 MG/ML / Clotrimazole 10 MG/ML Topical [facility] Cream 20201214 gabapentin 300 MG Oral Capsule [facility] 20201214 Mycophenolic Acid 180 MG Enteric Coated Tablet [facility] 20201221 Tacrolimus 1 MG Oral Capsule [facility] 20210111 Amylases 68525 UNT / Endopeptidases 380 00 UNT / Lipase [facility] 72166 UNT Enteric Coated Capsule 20210216 Pseudoephedrine Hydrochloride 30 MG Ora l Tablet [facility] 20210216 Codeine Phosphate 2 MG/ML / Guaifenesin 20 MG/ML [facility] Solution Procedures date description facility 20201214 [facility] date description facility 20210201 [facility] date description facility [id number] [facility] date description facility [id number] [facility] Vital Signs date measurement value source 20201214 BMI 29.0 kg/m2 20201214 BP_diastolic 92 mm[Hg] 20201214 BP_systolic 152 mm[Hg] 20201214 heart_rate 78 /min 20201214 height_metric 160.02 cm 20201214 height_standard 63 in 20201214 weight_metric 33.75 kg 20201214 weight_standard 74.42 lb date measurement value source 20210201 BMI 29.0 kg/m2 20210201 BP_diastolic 96 mm[Hg] 20210201 BP_systolic 142 mm[Hg] 20210201 heart_rate 63 /min 20210201 height_metric 160.02 cm 20210201 height_standard 63 in 20210201 weight_metric 33.75 kg 20210201 weight_standard 74.42 lb date measurement value source 20210216 BMI 28.8 kg/m2 20210216 height_metric 160.02 cm 20210216 height_standard 63 in 20210216 respiration_rate 18 /min 20210216 temperature_metric 37 C 20210216 temperature_standard 98.6 F 20210216 weight_metric 33.54 kg 20210216 weight_standard 73.94 lb date measurement value source 20210301 BMI 28.9 kg/m2 20210301 BP_diastolic 86 mm[Hg] 20210301 BP_systolic 132 mm[Hg] 20210301 heart_rate 76 /min 20210301 height_metric 160.02 cm 20210301 height_standard 63 in 20210301 weight_metric 33.61 kg 20210301 weight_standard 74.11 lb Social History date description facility [id number]
== END 2021-02-23 10:42 | disposition home or self-care (01) ==
LOC: ED 07:44
DX: N12 Tubulo-interstitial nephritis, not specified as acute or chronic (principal); D84.9 Immunodeficiency, unspecified; Z94.0 Kidney transplant status; Z94.4 Liver transplant status
CPT/HCPCS: 36415; 80053; 81001; 81003; 83690; 85025; 87077; 87086; 87181; 96365; 96375; 99284

== ENCOUNTER 2021-12-09 04:46 | Emergency (ER) | payer MEDICAID ==
[2021-12-09 05:11] LABS: BILIRUBIN,URINE NEGATIVE (NEGATIVE); GLUCOSE, URINE (UA) NEGATIVE (NEGATIVE); KETONES,URINE (UA) NEGATIVE (NEGATIVE); LEUKOCYTE ESTERASE, URINE SMALL (NEGATIVE); NITRITE,URINE POSITIVE (NEGATIVE); OCCULT BLOOD,URINE SMALL (NEGATIVE); PH,URINE 5.5 PH (5.0-7.5)
[2021-12-09 05:13] LABS: CLARITY,URINE SL. CLOUDY (CLEAR)
[2021-12-09 05:21] LABS: BACTERIA,URINE Many /HPF (None Seen); RBC,URINE 0-5 /HPF (0-5); SQUAMOUS EPITHELIAL CELL,UR FEW Squamous (<= Few); WBC,URINE >25 /HPF (0-5)
[2021-12-09] MEDS: LIDOCAINE 1% 2 ML VIAL MC ONE (05:39)
[2021-12-09] MEDS: cefTRIAXone 1 GM VIAL IM STA (05:39)
[2021-12-09] MEDS: SODIUM CHLORIDE 0.9% 1,973.13 ML IV STA (05:45)
[2021-12-09] MEDS: cefTRIAXone 1 GM in SODIUM CHLORIDE 0.9% MINIBAG 100 ML IV STA (05:45)
--- NOTE | 2021-12-09 05:58 | ED Physician Documentation ---
History of Present Illness - Stated complaint Stated Complaint: FEMALE - Chief complaint Chief Complaint: UTI - History obtained from History obtained from: Patient - Additonal information Additional information: 61yF with pmh cirrhosis s/p liver and kidney transplant 8 years ago on tacrolimus/mycophenolate, prior utis, p/w 1 week of malaise and couple days of dysuria and increasing suprapubic abd pain radiating to BL back. patient had fever 101.2 yesterday, called [facility] where her cooking chef and transplant doctors are located and the nurse coordinator told to come to ED for ultrasound. endorses nausea, malaise, fever/chills. Patient is unsure of who her transplant specialists are but does know there is a Dr. Huang and Dr. Olsen at [facility] that she sees. The surgeon who did her transplant no longer works at [facility]. Review of Systems Ten Systems: 10 systems reviewed and negative Constitutional: reports: Fever, Chills, Myalgias, Fatigue GI: reports: Abdominal Pain, Nausea. denies: Vomiting, Constipation, Diarrhea : reports: Dysuria, Frequency. 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 : Other HEENT: None Psych: Depression Musculoskeletal: None Derm: None - Past Surgical History Past Surgical History: Yes General: Liver surgery, Other Ortho: Other /WATER PIPE INSTALLER: section, Hysterectomy HEENT: Tonsil/Adenoidectomy - Present Medications Home Medications: Ambulatory Orders Medication Instructions Recorded Confirmed Mycophenolate Sodium [Mycophenolic 180 mg PO BID 03/07/15 02/23/21 Acid] Tacrolimus 1 mg PO BID 03/07/15 02/23/21 Amox/Clav 875/125 [Augmentin] 1 each PO Q12H #14 tablet 02/23/21 Lipase/Protease/Amylase [Karen Cummins 3 cap ORAL TID 02/23/21 02/23/21 12,000 Units Capsule] - Allergies Allergies/Adverse Reactions: Allergies Allergy/AdvReac Type Severity Reaction Status Date / Time promethazine HCl * Allergy Intermediate Anxiety Verified 12/09/21 04:57 [From Phenergan] sertraline HCl * Allergy Unknown Unknown Verified 12/09/21 04:57 [From Zoloft] - Social History Does the pt smoke?: No Smoking Status: Never smoker Does the pt drink ETOH?: No Does the pt have substance abuse?: No - Immunizations Immunizations are current?: Yes - POLST Patient has POLST: Yes POLST Status: Full Code PD ED PE NORMAL - Vitals Vital signs reviewed: Yes - General General: Alert and oriented X 3, No acute distress, Well developed/nourished - HEENT HEENT: Atraumatic, PERRL, EOMI - Neck Neck: Supple, no meningeal sign - Cardiac Cardiac: Other (tachycardic rate, regular rhythm) - Respiratory Respiratory: No respiratory distress, Clear bilaterally - Abdomen Abdomen: Non tender, Non distended, Other (discomfort to suprapubic palpation) - Back Back: Other (BL CVA ttp) - Derm Derm: Normal color, Warm and dry - Extremities Extremities: No deformity - Neuro Neuro: Alert and oriented X 3, No motor deficit, No sensory deficit - Psych Psych: Normal mood, Normal affect Results - Vitals Vitals: Vital Signs - 24 hr 12/09/21 04:57 Temperature 37.5 C Heart Rate 100 Respiratory 18 Rate Blood Pressure 137/70 H O2 Saturation 97 Oxygen O2 Source Room air - Labs Labs: Laboratory Tests 12/09/21 04:51 Urine Color ORANGE Urine Clarity SL. CLOUDY Urine pH 5.5 Ur Specific [place] 1.020 Urine Protein Urine Glucose (UA) NEGATIVE Urine Ketones NEGATIVE Urine Occult Blood SMALL H Urine Nitrite POSITIVE H Urine Bilirubin NEGATIVE Urine Urobilinogen Ur Leukocyte Esterase SMALL H Urine RBC 0-5 Urine WBC >25 H Ur Squamous Epith Cells FEW Squamous Urine Bacteria Many H Ur Microscopic Review INDICATED Urine Culture Comments INDICATED PD MEDICAL DECISION MAKING - ED course ED course: Renal transplant patient with complicated uti. will attempt to contact her specialists. renal u/s ordered as well as septic workup. Last time she had a uti here in 2017 she needed admission for IV antibiotics and renal monitoring. patient to be endorsed to Dr. Coon, incoming daytime MD for further management and care.
[2021-12-09] MEDS ORDERED: cefTRIAXone 1 GM VIAL ONE (06:01)
[2021-12-09 06:08] LABS: BASOPHILS % (AUTO) 0.3 %; EOSINOPHILS % (AUTO) 0.1 %; HCT - HEMATOCRIT 36.6 % (37.0-47.0); HGB - HEMOGLOBIN 12.2 g/dL (12.0-16.0); LYMPHOCYTES # (AUTO) 0.8 10^3/uL (1.5-3.5); LYMPHOCYTES % (AUTO) 7.5 %; MEAN CORPUSCULAR HEMOGLOBIN 30.9 pg (27.0-31.0); MEAN CORPUSCULAR HGB CONC 33.3 g/dL (32.0-36.0); MEAN CORPUSCULAR VOLUME 92.7 fL (81.0-99.0); MEAN PLATELET VOLUME 10.4 fL (7.9-10.8); MONOCYTES # (AUTO) 0.7 10^3/uL (0.0-1.0); MONOCYTES % (AUTO) 6.8 %; NEUTROPHILS # (AUTO) 8.6 10^3/uL (1.5-6.6); NEUTROPHILS % (AUTO) 84.9 %; PLT - PLATELET COUNT 225 10^3/uL (130-450); RED BLOOD COUNT 3.95 10^6/uL (4.20-5.40); RED CELL DISTRIBUTION WIDTH 12.8 % (12.0-15.0); WHITE BLOOD COUNT 10.1 x10^3/uL (4.8-10.8)
[2021-12-09 06:15] LABS: ALBUMIN/GLOBULIN RATIO 1.1 (1.0-2.2); BILIRUBIN,TOTAL 1.9 mg/dL (0.2-1.0); CALCIUM 8.7 mg/dL (8.5-10.3); CREATININE 1.3 mg/dL (0.4-1.0); POTASSIUM 4.5 mmol/L (3.5-5.0); TOTAL PROTEIN 7.5 g/dL (6.7-8.2)
[2021-12-09] MEDS: ONDANSETRON 4 MG/2 ML VIAL IVP STA (09:50)
[2021-12-09] MEDS: HYDROmorphone 0.5 MG/0.5 ML SYRINGE IVP STA (09:50)
--- NOTE | 2021-12-09 10:50 | Ultrasound Report ---
PROCEDURE: Retroperitoneal INDICATIONS: renal transplant, uti, fever TECHNIQUE: Real time scanning was performed of the transplant kidney, followed by color and pulsed D oppler interrogation of the renal vessels. COMPARISON: CT abdomen pelvis 01/15/2019 FINDINGS: Mccoy-scale imaging: Kidney is 12 cm long; renal cortical thickness is 1.6 cm. No hydronephrosis. No perinephric fluid collections. Renal cortex appears normal in echogenicity. Iliac artery peak systolic velocity: 127 cm/s proximal to the anastomosis and 172 cm/s distal to the anastomosis. Proximal renal artery peak systolic velocity: 134 cm/s proximally, 104 cm/s mid, 198 cm/s distally a t an area of curvature of the artery, 101 cm/s at the hilum. Renal vein: Patent with normal waveform morphology. Iliac vein: Patent with normal waveform morphology. Renal parenchyma perfusion: normal vascularization by color Doppler. Renal resistive index (superior, mid, inferior): 0.68, 0.76, 0.74. Bladder: Post void residual volume of 64 mL demonstrated. Small atrophic samish kidneys are demonstrated, measuring up to 8.1 cm on the right and 9.2 cm on the left with severe cortical thinning. No hydronephrosis. No discrete mass lesions within the samish ki dneys identified. IMPRESSION: 1. Right lower quadrant transplant kidney demonstrated without evidence of hydronephrosis or perineph clarence fluid collections. 2. No definite evidence of hemodynamically significant stenosis within the renal artery. 3. No evidence of renal vein thrombosis. 4. Postvoid residual volume of 64 mL demonstrated in the bladder. Reviewed by: Segundo Cisse MD on 12/09/2021 10:49 AM [facility] Approved by: Segundo Cisse MD on 12/09/2021 10:49 AM PST Station ID: [id number]
--- NOTE | 2021-12-09 11:00 | ED Physician Documentation ---
ED Addendum - Addendum Addendum: This patient was signed out to me, pending ultrasound of the kidneys and reevaluation. The patient had presented to the emergency department for UTI, which she has had multiple times in the past, in the setting of liver and kidney transplant in 2013. The patient has been stable and is on tacrolimus, she states mainly for her liver. She follows up with transplant specialist once a year, who she states currently is Dr. Alatorre through [facility]. She does not currently have a vertical lathe operator, she states. The patient states she came here this morning after calling the nurse coordinator through [facility] transplant center. She states her symptoms are similar to UTI symptoms she has had in the past. The patient currently sees Dr. John for her primary care. Patient denies any back pain. No dizziness or lightheadedness. She has had some mild nausea and headache but no vomiting. Patient states that she has had some urinary frequency and dysuria. On reevaluation the patient states she is feeling a lot better. Review of her laboratory studies reveals a normal lactic acid level and white blood cell count. Urine is positive for infection. Her kidney functions are normal. An ultrasound was done and showed no acute abnormalities. At this point in time, I felt the patient was stable for discharge. I had received signout stating that the vertical lathe operator wanted to get a report on the patient, but the patient states she does not have a vertical lathe operator, and attempts to call the coordinator at the transplant center were unsuccessful. I did review patient's previous records and it appears that under similar circumstances previously, including most recent visit in January, the patient was sent home on oral antibiotics after receiving an IV dose of antibiotics here. The patient has received IV Rocephin. Based on her urine culture and sensitivity from her last visit, it appears that the Patient's bacteria was sensitive to Bactrim and fluoroquinolones, but resistant to amoxicillin and ampicillin. I prefer to avoid the fluoroquinolones, based on their effects on the kidneys, and so I will at this point in time patient on Bactrim. I have also prescribed Zofran and Pyridium for the patient. We have discussed the need for follow-up and the usual indications for return. 12/09/21 10:56
[2021-12-09 11:30] VITALS: BP 147/93
--- NOTE | 2021-12-09 11:36 | Ultrasound Report ---
PROCEDURE: Doppler Complete INDICATIONS: renal transplant, uti, fever TECHNIQUE: Pelvic examination of right lower quadrant renal allograft transplant. PROCEDURE: Doppler Complete INDICATIONS: renal transplant, uti, fever TECHNIQUE: Real time scanning was performed of the transplant kidney, followed by color and pulsed D oppler interrogation of the renal vessels. COMPARISON: Prior abdominal ultrasound dated 05/02/2017 FINDINGS: Mccoy-scale imaging: Kidney is 12.0 cm long; renal cortical thickness is 1.6 cm. No hydronephrosis. Renal cortex is normal in echogenicity. No perinephric fluid collections. Iliac artery peak systolic velocity: 127 cm/s. Proximal renal artery peak systolic velocity: 134 cm/s. Renal vein: Patent with normal waveform morphology. Iliac vein: Patent with normal waveform morphology. Renal parenchyma perfusion: normal vascularization by color Doppler. Renal resistive index (superior, mid, inferior): 0.72, 0.76, 0.7. Atrophy of the telida kidneys redemonstrated. Bladder: Urinary bladder is moderately decompressed and grossly normal. IMPRESSION: 1. Normal morphology of the right renal allograft transplant kidney and no hydronephrosis is present. 2. Resistive indices within the kidney are upper limits of normal. 3. Atrophy of the telida kidneys redemonstrated. Reviewed by: EDUARDO Gusman on 12/09/2021 11:35 AM PST Approved by: Phoebe Whitehead MD, PhD on 12/09/2021 11:35 AM PST Station ID: [id number]
== END 2021-12-09 11:30 | disposition home or self-care (01) ==
LOC: ED 04:46
DX: N30.90 Cystitis, unspecified without hematuria (principal); Z94.0 Kidney transplant status; Z94.4 Liver transplant status
CPT/HCPCS: 36415; 76770; 80053; 81001; 83605; 85025; 87040; 87077; 87086; 87181; 93975; 96365; 96375; 99283; 99284; J1170; 81003

== ENCOUNTER 2023-02-03 07:18 | Emergency (ER) | payer MEDICAID ==
--- NOTE | 2023-02-03 07:26 | ED Physician Documentation ---
PD HPI LOWER EXT INJURY - Stated complaint Stated Complaint: LEG CRAMP/NUMBNESS - History obtained from History obtained from: Patient - History of Present Illness PD HPI LOW EXT INJURY LOCATION: Right, Foot Type of injury: No: Fall, Twist Where injury occurred: Other (she is not aware of particular injury. She has noted numbness on right lateral foot and lower leg. No edema. No weakness. Also has had feeling of very thirsty and having to urinate frequently. Mild discomfort with urination. Some pain in upper abd the past day as well.) Timing - onset: How many days ago (foot numbness intermittently for week or two. the feeling of thirsty/increased urination has been for month or two.) Timing - details: Gradual onset, Still present, Waxing and waning Associated symptoms: Numbness, Tingling. No: Weakness, Swelling, Discolored Review of Systems Constitutional: denies: Fever, Chills Nose: denies: Rhinorrhea / runny nose, Congestion Throat: denies: Sore throat Respiratory: denies: Cough GI: reports: Abdominal Pain. denies: Nausea, Vomiting, Constipation, Diarrhea : reports: Frequency. denies: Discharge Skin: denies: Rash, Lesions Musculoskeletal: denies: Back pain, Extremity swelling PD PAST MEDICAL HISTORY - Past Medical History Cardiovascular: None Respiratory: Asthma Neuro: Seizure disorder Endocrine/Autoimmune: None GI: GI bleed, Cirrhosis ROLL CUTTER: None : Other HEENT: None Psych: Depression Musculoskeletal: None Derm: None - Past Surgical History Past Surgical History: Yes General: Liver surgery, Other Ortho: Other /ROLL CUTTER: section, Hysterectomy HEENT: Tonsil/Adenoidectomy - Present Medications Home Medications: Ambulatory Orders Medication Instructions Recorded Confirmed Mycophenolate Sodium [Mycophenolic 180 mg PO BID 03/07/15 02/03/23 Acid] Tacrolimus 1 mg PO BID 03/07/15 02/03/23 Lipase/Protease/Amylase [Karen Cummins 3 cap ORAL TID 02/23/21 12/09/21 12,000 Units Capsule] Nitrofurantoin [Macrobid] 100 mg PO 02/03/23 cephALEXin [Keflex] 500 mg PO TID #20 cap 02/03/23 - Allergies Allergies/Adverse Reactions: Allergies Allergy/AdvReac Type Severity Reaction Status Date / Time promethazine HCl * Allergy Intermediate Anxiety Verified 12/09/21 04:57 [From Phenergan] sertraline HCl * Allergy Unknown Unknown Verified 12/09/21 04:57 [From Zoloft] - Social History Does the pt smoke?: No Smoking Status: Never smoker Does the pt drink ETOH?: No Does the pt have substance abuse?: No - Immunizations Immunizations are current?: Yes - POLST Patient has POLST: Yes POLST Status: Full Code PD ED PE NORMAL - Vitals Vital signs reviewed: Yes - General General: Alert and oriented X 3, No acute distress, Well developed/nourished - Cardiac Cardiac: RRR, No murmur - Respiratory Respiratory: Clear bilaterally - Abdomen Abdomen: Normal bowel sounds, Soft, Non distended, No organomegaly, Other (mild tedner without guarding in epigastric to RUQ area. NO distension. No percussion tender. ) Results - Vitals Vitals: Vital Signs - 24 hr 02/03/23 02/03/23 02/03/23 07:25 10:25 12:44 Temperature 36.8 C 37.1 C Heart Rate 75 71 75 Respiratory 16 18 Rate Blood Pressure 134/94 H 133/82 H 145/100 H O2 Saturation 100 99 96 Oxygen O2 Source Room air - Labs Labs: Laboratory Tests 02/03/23 02/03/23 02/03/23 08:10 08:10 08:10 WBC 9.5 RBC 3.77 L Hgb 11.1 L Hct 34.7 L MCV 92.0 MCH 29.4 MCHC 32.0 RDW 12.5 Plt Count 422 MPV 9.1 Neut # (Auto) 7.2 H Lymph # (Auto) 1.6 Green # (Auto) 0.6 Eos # (Auto) 0.1 Baso # (Auto) 0.0 Absolute Nucleated RBC 0.00 Nucleated RBC % 0.0 ESR Sodium 139 Potassium 4.4 Chloride 104 Carbon Dioxide 25 Anion Gap 10.0 BUN 32 H Creatinine 1.4 H Estimated GFR (MDRD) 38 L Glucose 107 H Estimat Average Glucose 128 H Hemoglobin A1c % 6.1 H Calcium 9.4 Phosphorus 3.2 Total Bilirubin 0.8 AST 16 ALT 18 Alkaline Phosphatase 71 Total Protein 7.9 Albumin 3.7 Globulin 4.2 Albumin/Globulin Ratio 0.9 L Lipase 22 Urine Color Urine Clarity Urine pH Ur Specific Eighty Four Urine Protein Urine Glucose (UA) Urine Ketones Urine Occult Blood Urine Nitrite Urine Bilirubin Urine Urobilinogen Ur Leukocyte Esterase Urine RBC Urine WBC Ur Squamous Epith Cells Urine Bacteria Urine Casts Ur Microscopic Review Urine Culture Comments U Random Total Protein Urine Sodium Serum Ketones NEGATIVE 02/03/23 02/03/23 02/03/23 08:10 08:15 08:15 WBC RBC Hgb Hct MCV MCH MCHC RDW Plt Count MPV Neut # (Auto) Lymph # (Auto) Green # (Auto) Eos # (Auto) Baso # (Auto) Absolute Nucleated RBC Nucleated RBC % ESR 86 H Sodium Potassium Chloride Carbon Dioxide Anion Gap BUN Creatinine Estimated GFR (MDRD) Glucose Estimat Average Glucose Hemoglobin A1c % Calcium Phosphorus Total Bilirubin AST ALT Alkaline Phosphatase Total Protein Albumin Globulin Albumin/Globulin Ratio Lipase Urine Color YELLOW Urine Clarity HAZY Urine pH 5.5 Ur Specific [place] 1.020 Urine Protein NEGATIVE Urine Glucose (UA) >=1000 H Urine Ketones NEGATIVE Urine Occult Blood NEGATIVE Urine Nitrite POSITIVE H Urine Bilirubin NEGATIVE Urine Urobilinogen 0.2 (NORMAL) Ur Leukocyte Esterase NEGATIVE Urine RBC 0-5 Urine WBC >25 H Ur Squamous Epith Cells RARE Squamous Urine Bacteria Many H Urine Casts 0-2 Hyaline Casts Ur Microscopic Review INDICATED Urine Culture Comments INDICATED U Random Total Protein 19 Urine Sodium 46.0 Serum Ketones - Rads (name of study) duplex right leg Relevant Findings:: Prelim report reviewed, EMP independent interpretation of test, See rad report, Other (U/S tech gave verbal results - no DVT) PD Medical Decision Making - ED course Complexity details: reviewed results, considered differential (for foot, seems most likely nerve root as is a dermatomal area. can assess with US as well. for the thirsty/urination - will check for diabetes, but also glomerular integrity with urine Na, protein, osmoles. abd seems gastric. not hurting in area of organ pouches. ), d/w patient, d/w communications consultant (Mireya, life skills coordinator for liver and Wallace coord for Renal transplant - at [facility]. they had Probation Supervisor and Ferris Wheel Operator look at labs and were okay with current results. To treat uti. ) Reviewed Lab Results: urine reviewed and c/w uti. Sodium and protein in urine is okay. Renal function has mild elevation of creatinine at 1.4, up from prior 1.1. WBC is normal, reviewed. Departure - Departure Disposition: Home, Self Care Clinical Impression: Renal transplant, status post, Status post liver transplant, Polydipsia, Numbness of right foot UTI (urinary tract infection) Qualifiers: Urinary tract infection type: acute cystitis Hematuria presence: without hem aturia Qualified Code(s): N30.00 - Acute cystitis without hematuria Condition: Stable Record reviewed to determine appropriate education?: Yes Instructions: ED UTI Cystitis Female Follow-Up: ORLY TRAIQ DO [Primary Care Provider] - Prescriptions: cephALEXin [Keflex] 500 mg PO TID #20 cap Comments: I did talk with Mireya and Wallace at [facility] transplant teams. They had the food service team member and heavy equipment engine mechanic review your labs and feel it is in the appropriate range at this point. The serum and urine osmolality tests are send out and will not result for a couple of days. Look online at your patient portal for the results and feel in Mireya on the results on Monday. Meanwhile we will treat with cephalexin antibiotic for your urinary tract infection. Your blood sugar is minimally elevated and your hemoglobin A1c is at the just over the high end of normal at 6.1. However these do not really any abnormal enough to suggest your urination and thirst are related to diabetes. Not clear the cause of it otherwise. Follow-up with your primary care. I sent your prescriptions to [facility] in [place]. Discharge Date/Time: 02/03/23 12:44
[2023-02-03] MEDS ORDERED: LACTATED RINGERS 1,000 ML IV STA (08:00)
--- OUTSIDE RECORDS SUMMARY | 2023-02-03 08:07 | EXTERNAL MEDICAL SUMMARY RPT | Continuity of Care Document ---
:1960 Author Organization [facility] Address [address] [place] [address] Phone Care Team Providers Name Role Phone Oscar Leach Unavailable Unavailable Allergies and Intolerances date description facility type (no date) [facility] (unknown) Encounters No information. Functional Status No information. Immunizations No information. Medications date description facility 2022-11-22 00:00 [facility] Problems No information. Procedures No information. Results/Labs test date author facility value unit interpret ation Result panel 1 (unknown) (no (unknown) (unknown) (no value) (units (unk nown) date) unknown) (unknown) (no (unknown) (unknown) [id number] (units (unkno wn) date) unknown) (unknown) (no (unknown) (unknown) 10/14/22 (units (unkno wn) date) unknown) (unknown) (no (unknown) (unknown) 62-year-old (units (un known) date) woman history of unknown) incomplete emptying of bladder, alcohol abuse, (unknown) (no (unknown) (unknown) Age/Sex: 62 / F (units (unknown) date) Date of Service: unknown) (unknown) (no (unknown) (unknown) Allergies (units (unkn own) date) unknown) (unknown) (no (unknown) (unknown) [place], [place] (units ( unknown) date) [id number] unknown) (unknown) (no (unknown) (unknown) Anesthesia (units (unk nown) date) unknown) (unknown) (no (unknown) (unknown) Asthma (-2009) (units (unknown) date) unknown) (unknown) (no (unknown) (unknown) Attending Dr: (units ( unknown) date) Jurgen Amador D.O. unknown) (unknown) (no (unknown) (unknown) Chief Complaint (units (unknown) date) unknown) (unknown) (no (unknown) (unknown) Chief Complaint: (units (unknown) date) Multiple issues unknown) (unknown) (no (unknown) (unknown) Chronic back (units (u nknown) date) pain () unknown) (unknown) (no (unknown) (unknown) Chronic (units (unkno wn) date) pancreatitis unknown) (unknown) (no (unknown) (unknown) Chronic urinary (units (unknown) date) tract infection unknown) (unknown) (no (unknown) (unknown) Cirrhosis (units (unkn own) date) () unknown) (unknown) (no (unknown) (unknown) : 1960 (units (unknown) date) Acct:[id number] unknown) (unknown) (no (unknown) (unknown) Dept at (units (unkno wn) date) . unknown) (unknown) (no (unknown) (unknown) Details: (units (unkno wn) date) unknown) (unknown) (no (unknown) (unknown) Diet and (units (unkno wn) date) Exercise unknown) (unknown) (no (unknown) (unknown) Documented By: (units (unknown) date) Jurgen Amador D.O. unknown) 11/22/22 0847 (unknown) (no (unknown) (unknown) Draft (units (unkno wn) date) unknown) (unknown) (no (unknown) (unknown) Family History (units (unknown) date) (Updated 08/26/22 unknown) @ 10:25 by Jurgen Amador DO) (unknown) (no (unknown) (unknown) Family Practice (units (unknown) date) Office Visit unknown) (unknown) (no (unknown) (unknown) Father (units (unknown) date) Alzheimer's unknown) dementia (unknown) (no (unknown) (unknown) [facility] (units ([facility] date[facility] unknown) (unknown) (no (unknown) (unknown) GI bleeding (units (un known) date) () unknown) (unknown) (no (unknown) (unknown) HPI (units (unkno wn) date) unknown) (unknown) (no (unknown) (unknown) Health (units (unkno wn) date) maintenance: unknown) normal colonoscopy 2021, pap 2013, mammogram 2012 (unknown) (no (unknown) (unknown) History of (units (unk nown) date) alcohol abuse unknown) (unknown) (no (unknown) (unknown) History of liver (units (unknown) date) transplant unknown) (10/2014) (unknown) (no (unknown) (unknown) History of (units (unk nown) date) tobacco use unknown) (unknown) (no (unknown) (unknown) Incomplete (units (unk nown) date) emptying of unknown) bladder (unknown) (no (unknown) (unknown) Intake (units (unkno wn) date) unknown) (unknown) (no (unknown) (unknown) Kidney failure (units (unknown) date) () unknown) (unknown) (no (unknown) (unknown) 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 unknown) (unknown) (no (unknown) (unknown) Other Menstrual (units (unknown) date) Period: Surgical unknown) Menopause (unknown) (no (unknown) (unknown) PFSH (units (unkno wn) date) unknown) (unknown) (no (unknown) (unknown) Patient: (units (unkno wn) date) Ursula Zapata unknown) MR#: [id number] (unknown) (no (unknown) (unknown) Pre-diabetes (units (u nknown) date) unknown) (unknown) (no (unknown) (unknown) Reason For Visit (units (unknown) date) unknown) (unknown) (no (unknown) (unknown) Recurrent (units (unkn own) date) urinary tract unknown) infection (unknown) (no (unknown) (unknown) She was been on (units (unknown) date) those drugs for 3 unknown) months and the pancreatitis and UTIs have stop (unknown) (no (unknown) (unknown) Signed By: (units (unk nown) date) unknown) (unknown) (no (unknown) (unknown) Smoking Status: (units (unknown) date) Former smoker unknown) (unknown) (no (unknown) (unknown) Social History (units (unknown) date) unknown) (unknown) (no (unknown) (unknown) Status post (units (un known) date) delivery unknown) () (unknown) (no (unknown) (unknown) Status post (units (un known) date) delivery unknown) () (unknown) (no (unknown) (unknown) Status post (units (un known) date) delivery unknown) () (unknown) (no (unknown) (unknown) Status post (units (un known) date) hysterectomy unknown) () (unknown) (no (unknown) (unknown) Surgical History (units (unknown) date) (Reviewed unknown) 08/26/22 @ 10:23 by Jurgen Amador DO) (unknown) (no (unknown) (unknown) The patient (units (un known) date) denies fever, unknown) weight loss, fatigue, headache, shortness of breath, (unknown) (no (unknown) (unknown) This note may (units ( unknown) date) have been all or unknown) partially generated using voice recognition (unknown) (no (unknown) (unknown) Tobacco + (units (unkn own) date) Substance Use unknown) (unknown) (no (unknown) (unknown) Tobacco Status (units (unknown) date) unknown) (unknown) (no (unknown) (unknown) Transplant (units (unk nown) date) () unknown) (unknown) (no (unknown) (unknown) Type(s) of (units (unk nown) date) exercise: walking unknown) (unknown) (no (unknown) (unknown) Vertigo (-2016) (units (unknown) date) unknown) (unknown) (no (unknown) (unknown) Visit Reasons: (units (unknown) date) Lab f/u, Multiple unknown) issues 12 (unknown) (no (unknown) (unknown) Vitamin D (units (unkn own) date) deficiency unknown) (unknown) (no (unknown) (unknown) because she (units (un known) date) abused alcohol, unknown) and she reports she is not having problems with (unknown) (no (unknown) (unknown) being a problem. (units (unknown) date) Her insulin unknown) levels were normal. She was told she had a (unknown) (no (unknown) (unknown) chest pain, (units (un known) date) abdominal pain, unknown) nausea, vomiting, diarrhea, constipation, pain with (unknown) (no (unknown) (unknown) complaints (units (unk nown) date) unknown) (unknown) (no (unknown) (unknown) continues with (units (unknown) date) Dapaglaflozin 15 unknown) mg daily and still has relief from those (unknown) (no (unknown) (unknown) controlled when (units (unknown) date) Dr[facility] in [facility] unknown) Alfredo put her on diabetes medications even (unknown) (no (unknown) (unknown) craving alcohol (units (unknown) date) now with the help unknown) of Welbutrin and LDN. She reports that she (unknown) (no (unknown) (unknown) defecation, (units (un known) date) black or bloody unknown) stool, urge or stress incontinence, nocturia, (unknown) (no (unknown) (unknown) frequency: 3-4 (units (unknown) date) times per week unknown) (unknown) (no (unknown) (unknown) have occurred. (units (unknown) date) If there are any unknown) questions, please contact the Medical Records (unknown) (no (unknown) (unknown) hydrocodone (units (un known) date) [From VICODIN] unknown) Allergy (Mild, Verified 11/02/22 10:08) (unknown) (no (unknown) (unknown) marital status: (units (unknown) date) unknown) (unknown) (no (unknown) (unknown) may occur. (units (unk nown) date) Occasional unknown) wrong-word or 'sound-alike' substitutions may have (unknown) (no (unknown) (unknown) neuropathy in (units ( unknown) date) her feet. unknown) (unknown) (no (unknown) (unknown) number of (units (unkn own) date) children: 3 unknown) (unknown) (no (unknown) (unknown) occurred due to (units (unknown) date) the inherent unknown) limitations of voice recognition software. Please (unknown) (no (unknown) (unknown) problem with (units (u nknown) date) ?processing unknown) sugar?. She has now stopped the semaglutide and (unknown) (no (unknown) (unknown) promethazine (units (u nknown) date) [From PHENERGAN] unknown) Allergy (Unknown, Verified 11/02/22 10:08) (unknown) (no (unknown) (unknown) rash (units (unkno wn) date) unknown) (unknown) (no (unknown) (unknown) read the note (units ( unknown) date) carefully and unknown) recognize, using context, where these substitutions (unknown) (no (unknown) (unknown) recipient of (units (u nknown) date) kidney and liver unknown) transplant presents for discussion of past labs (unknown) (no (unknown) (unknown) software. 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 (unknown) (no (unknown) (unknown) tobacco abuse, (units (unknown) date) chronic unknown) pancreatitis, asthma, chronic back pain, and being (unknown) (no (unknown) (unknown) tolerance test (units (unknown) date) and severe unknown) vitamin D deficiency. She needed the transplants (unknown) (no (unknown) (unknown) vaginal dryness (units (unknown) date) or atrophy, unknown) postmenopausal bleeding, hot flashes. She has mild (unknown) (no (unknown) (unknown) was having (units (unk nown) date) chronic UTIs, unknown) bloating, and pancreatitis chronically that was Result panel 2 (unknown) (no (unknown) (unknown) (no value) (units (unk nown) date) unknown) (unknown) (no (unknown) (unknown) [id number] (units (unkno wn) date) unknown) (unknown) (no (unknown) (unknown) 10:41 (units (unkno wn) date) unknown) (unknown) (no (unknown) (unknown) 11/22/22 (units (unkno wn) date) unknown) (unknown) (no (unknown) (unknown) 11/22/22] (units (unkn own) date) unknown) (unknown) (no (unknown) (unknown) 62 yo female (units (u nknown) date) presents today unknown) for a lab f/u and multiple issues. (unknown) (no (unknown) (unknown) 62-year-old (units (un known) date) woman history of unknown) incomplete emptying of bladder, alcohol abuse, (unknown) (no (unknown) (unknown) Age/Sex: 62 / F (units (unknown) date) Date of Service: unknown) (unknown) (no (unknown) (unknown) Allergies (units (unkn own) date) unknown) (unknown) (no (unknown) ([place]units ( unknown) date) [id number] unknown) (unknown) (no (unknown) (unknown) Anesthesia (units (unk nown) date) unknown) (unknown) (no (unknown) (unknown) Asthma (-2009) (units (unknown) date) unknown) (unknown) (no (unknown) (unknown) Attending Dr: (units ( unknown) date) Jurgen Amador D.O. unknown) (unknown) (no (unknown) (unknown) Chief Complaint (units (unknown) date) unknown) (unknown) (no (unknown) (unknown) Chief Complaint: (units (unknown) date) Multiple issues unknown) (unknown) (no (unknown) (unknown) Chronic back (units (u nknown) date) pain (-2012) unknown) (unknown) (no (unknown) (unknown) Chronic (units (unkno wn) date) pancreatitis unknown) (unknown) (no (unknown) (unknown) Chronic urinary (units (unknown) date) tract infection unknown) (unknown) (no (unknown) (unknown) Cirrhosis (units (unkn own) date) (-2013) unknown) (unknown) (no (unknown) (unknown) DAILY 05/24/22 (units (unknown) date) [History unknown) Confirmed 11/22/22] (unknown) (no (unknown) (unknown) : 1960 (units (unknown) date) Acct:[id number] unknown) (unknown) (no (unknown) (unknown) Dept at (units (unkno wn) date) . unknown) (unknown) (no (unknown) (unknown) Details: (units (unkno wn) date) unknown) (unknown) (no (unknown) (unknown) Diet and (units (unkno wn) date) Exercise unknown) (unknown) (no (unknown) (unknown) Documented By: (units (unknown) date) Jurgen Amador D.O. unknown) 11/22/22 0847 (unknown) (no (unknown) (unknown) Draft (units (unkno wn) date) unknown) (unknown) (no (unknown) (unknown) Family History (units (unknown) date) (Updated 08/26/22 unknown) @ 10:25 by Jurgen Amador DO) (unknown) (no (unknown) (unknown) Family Practice (units (unknown) date) Office Visit unknown) (unknown) (no (unknown) (unknown) Father (units (unknown) date) Alzheimer's unknown) dementia (unknown) (no (unknown) (unknown) [facility] ([facility] ([facility] unknown) (unknown) (no (unknown) (unknown) GI bleeding (units (un known) date) () unknown) (unknown) (no (unknown) (unknown) HPI (units (unkno wn) date) unknown) (unknown) (no (unknown) (unknown) Health (units (unkno wn) date) maintenance: unknown) normal colonoscopy 2021, pap 2013, mammogram 2012 (unknown) (no (unknown) (unknown) Height 5 ft 3 in (units (unknown) date) unknown) (unknown) (no (unknown) (unknown) History of (units (unk nown) date) alcohol abuse unknown) (unknown) (no (unknown) (unknown) History of liver (units (unknown) date) transplant unknown) (10/2014) (unknown) (no (unknown) (unknown) History of (units (unk nown) date) tobacco use unknown) (unknown) (no (unknown) (unknown) Incomplete (units (unk nown) date) emptying of unknown) bladder (unknown) (no (unknown) (unknown) Intake Note: (units (u nknown) date) unknown) (unknown) (no (unknown) (unknown) Intake performed (units (unknown) date) by: Danita Castelan unknown) (unknown) (no (unknown) (unknown) Intake (units (unkno wn) date) unknown) (unknown) (no (unknown) (unknown) Intake- Clincial (units (unknown) date) Staff unknown) (unknown) (no (unknown) (unknown) Kidney failure (units (unknown) date) (-2013) unknown) (unknown) (no (unknown) (unknown) 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 unknown) (unknown) (no (unknown) (unknown) Other Menstrual (units (unknown) date) Period: Surgical unknown) Menopause (unknown) (no (unknown) (unknown) PFSH (units (unkno wn) date) unknown) (unknown) (no (unknown) (unknown) Patient: (units (unkno wn) date) BennyUrsula unknown) MR#: [id number] (unknown) (no (unknown) (unknown) Pre-diabetes (units (u nknown) date) unknown) (unknown) (no (unknown) (unknown) Reason For Visit (units (unknown) date) unknown) (unknown) (no (unknown) (unknown) Recurrent (units (unkn own) date) urinary tract unknown) infection (unknown) (no (unknown) (unknown) See Rx (units (unkno wn) date) Instructions unknown) .Route .COMPLEX #540 caps 08/26/22 [Rx Confirmed 11/22/22] (unknown) (no (unknown) (unknown) She was been on (units (unknown) date) those drugs for 3 unknown) months and the pancreatitis and UTIs have stop (unknown) (no (unknown) (unknown) Signed By: (units (unk nown) date) unknown) (unknown) (no (unknown) (unknown) Smoking Status: (units (unknown) date) Former smoker unknown) (unknown) (no (unknown) (unknown) Social History (units (unknown) date) unknown) (unknown) (no (unknown) (unknown) Status post (units (un known) date) delivery unknown) () (unknown) (no (unknown) (unknown) Status post (units (un known) date) delivery unknown) () (unknown) (no (unknown) (unknown) Status post (units (un known) date) delivery unknown) () (unknown) (no (unknown) (unknown) Status post (units (un known) date) hysterectomy unknown) () (unknown) (no (unknown) (unknown) Surgical History (units (unknown) date) (Reviewed unknown) 08/26/22 @ 10:23 by Jurgen Amador DO) (unknown) (no (unknown) (unknown) The patient (units (un known) date) denies fever, unknown) weight loss, fatigue, headache, shortness of breath, (unknown) (no (unknown) (unknown) This note may (units ( unknown) date) have been all or unknown) partially generated using voice recognition (unknown) (no (unknown) (unknown) Tobacco + (units (unkn own) date) Substance Use unknown) (unknown) (no (unknown) (unknown) Tobacco Status (units (unknown) date) unknown) (unknown) (no (unknown) (unknown) Transplant (units (unk nown) date) (-2013) unknown) (unknown) (no (unknown) (unknown) Type(s) of (units (unk nown) date) exercise: walking unknown) (unknown) (no (unknown) (unknown) Vertigo (-2015) (units (unknown) date) unknown) (unknown) (no (unknown) (unknown) Visit Reasons: (units (unknown) date) Lab f/u, Multiple unknown) issues 12 (unknown) (no (unknown) (unknown) Vitals (units (unkno wn) date) unknown) (unknown) (no (unknown) (unknown) Vitamin D (units (unkn own) date) deficiency unknown) (unknown) (no (unknown) (unknown) [History (units (unkno wn) date) Confirmed unknown) 11/22/22] (unknown) (no (unknown) (unknown) [Rx Confirmed (units ( unknown) date) 11/22/22] unknown) (unknown) (no (unknown) (unknown) because she (units (un known) date) abused alcohol, unknown) and she reports she is not having problems with (unknown) (no (unknown) (unknown) being a problem. (units (unknown) date) Her insulin unknown) levels were normal. She was told she had a (unknown) (no (unknown) (unknown) bupropion HCl (units ( unknown) date) 100 mg tablet,12 unknown) hr sustained-release (Wellbutrin SR) 100 mg PO (unknown) (no (unknown) (unknown) chest pain, (units (un known) date) abdominal pain, unknown) nausea, vomiting, diarrhea, constipation, pain with (unknown) (no (unknown) (unknown) complaints (units (unk nown) date) unknown) (unknown) (no (unknown) (unknown) continues with (units (unknown) date) Dapaglaflozin 15 unknown) mg daily and still has relief from those (unknown) (no (unknown) (unknown) controlled when (units (unknown) date) Dr[facility] unknown) Alfredo put her on diabetes medications even (unknown) (no (unknown) (unknown) craving alcohol (units (unknown) date) now with the help unknown) of Welbutrin and LDN. She reports that she (unknown) (no (unknown) (unknown) dapagliflozin 5 (units (unknown) date) mg tablet unknown) (Farxiga) 10 mg PO DAILY 11/02/22 [History Confirmed (unknown) (no (unknown) (unknown) defecation, (units (un known) date) black or bloody unknown) stool, urge or stress incontinence, nocturia, (unknown) (no (unknown) (unknown) ent of kidney (units ( unknown) date) and liver unknown) transplant presents for discussion of past labs that (unknown) (no (unknown) (unknown) estradiol 10 mcg (units (unknown) date) vaginal tablet unknown) (Vagifem) 10 mcg vaginal 2XW #8 tabs 08/26/21 (unknown) (no (unknown) (unknown) frequency: 3-4 (units (unknown) date) times per week unknown) (unknown) (no (unknown) (unknown) have occurred. (units (unknown) date) If there are any unknown) questions, please contact the Medical Records (unknown) (no (unknown) (unknown) hydrocodone (units (un known) date) [From VICODIN] unknown) Allergy (Mild, Verified 11/22/22 10:40) (unknown) (no (unknown) (unknown) indicate above (units (unknown) date) normal fasting unknown) glucose at 108 and elevated two hour glucose (unknown) (no (unknown) (unknown) lipase-protease- (units (unknown) date) amylase unknown) 12,000-38,000-60, 000 unit capsule,delayed rel (Creon) (unknown) (no (unknown) (unknown) low dose (units (unkno wn) date) naltrexone PO unknown) DAILY 08/26/22 [History Confirmed 11/22/22] (unknown) (no (unknown) (unknown) marital status: (units (unknown) date) unknown) (unknown) (no (unknown) (unknown) may occur. (units (unk nown) date) Occasional unknown) wrong-word or 'sound-alike' substitutions may have (unknown) (no (unknown) (unknown) mycophenolate (units ( unknown) date) sodium 180 mg unknown) tablet,delayed release 180 mg PO BID 10/14/22 (unknown) (no (unknown) (unknown) neuropathy in (units ( unknown) date) her feet. unknown) (unknown) (no (unknown) (unknown) number of (units (unkn own) date) children: 3 unknown) (unknown) (no (unknown) (unknown) occurred due to (units (unknown) date) the inherent unknown) limitations of voice recognition software. Please (unknown) (no (unknown) (unknown) problem with (units (u nknown) date) ?processing unknown) sugar?. She has now stopped the semaglutide and (unknown) (no (unknown) (unknown) promethazine (units (u nknown) date) [From PHENERGAN] unknown) Allergy (Unknown, Verified 11/22/22 10:40) (unknown) (no (unknown) (unknown) rash (units (unkno wn) date) unknown) (unknown) (no (unknown) (unknown) read the note (units ( unknown) date) carefully and unknown) recognize, using context, where these substitutions (unknown) (no (unknown) (unknown) software. 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 (unknown) (no (unknown) (unknown) tobacco abuse, (units ( unknown) date) chronic unknown) pancreatitis, asthma, chronic back pain, and being recipi (unknown) (no (unknown) (unknown) tolerance test (units (unknown) date) and severe unknown) vitamin D deficiency. She needed the transplants (unknown) (no (unknown) (unknown) vaginal dryness (units (unknown) date) or atrophy, unknown) postmenopausal bleeding, hot flashes. She has mild (unknown) (no (unknown) (unknown) was having (units (unk nown) date) chronic UTIs, unknown) bloating, and pancreatitis chronically that was Result panel 3 (unknown) (no (unknown) (unknown) (no value) (units (unk nown) date) unknown) (unknown) (no (unknown) (unknown) [id number] (units (unkno wn) date) unknown) (unknown) (no (unknown) (unknown) 10:41 (units (unkno wn) date) unknown) (unknown) (no (unknown) (unknown) 11/22/22 (units (unkno wn) date) unknown) (unknown) (no (unknown) (unknown) 11/22/22] (units (unkn own) date) unknown) (unknown) (no (unknown) (unknown) 62 yo female (units (u nknown) date) presents today unknown) for a lab f/u and multiple issues. (unknown) (no (unknown) (unknown) 62-year-old (units (un known) date) woman history of unknown) incomplete emptying of bladder, alcohol abuse, (unknown) (no (unknown) (unknown) Age/Sex: 62 / F (units (unknown) date) Date of Service: unknown) (unknown) (no (unknown) (unknown) Allergies (units (unkn own) date) unknown) (unknown) (no (unknown) (unknown) [place], [place] (units ( unknown) date) [id number] unknown) (unknown) (no (unknown) (unknown) Anesthesia (units (unk nown) date) unknown) (unknown) (no (unknown) (unknown) Asthma (-2009) (units (unknown) date) unknown) (unknown) (no (unknown) (unknown) Attending Dr: (units ( unknown) date) Jurgen Amador D.O. unknown) (unknown) (no (unknown) (unknown) Chief Complaint (units (unknown) date) unknown) (unknown) (no (unknown) (unknown) Chief Complaint: (units (unknown) date) Multiple issues unknown) (unknown) (no (unknown) (unknown) Chronic back (units (u nknown) date) pain (-2012) unknown) (unknown) (no (unknown) (unknown) Chronic (units (unkno wn) date) pancreatitis unknown) (unknown) (no (unknown) (unknown) Chronic urinary (units (unknown) date) tract infection unknown) (unknown) (no (unknown) (unknown) Cirrhosis (units (unkn own) date) () unknown) (unknown) (no (unknown) (unknown) DAILY 05/24/22 (units (unknown) date) [History unknown) Confirmed 11/22/22] (unknown) (no (unknown) (unknown) : 1960 (units (unknown) date) Acct:[id number] unknown) (unknown) (no (unknown) (unknown) Dept at (units (unkno wn) date) . unknown) (unknown) (no (unknown) (unknown) Details: (units (unkno wn) date) unknown) (unknown) (no (unknown) (unknown) Diet and (units (unkno wn) date) Exercise unknown) (unknown) (no (unknown) (unknown) Documented By: (units (unknown) date) Jurgen Amador D.O. unknown) 11/22/22 0847 (unknown) (no (unknown) (unknown) Draft (units (unkno wn) date) unknown) (unknown) (no (unknown) (unknown) Family History (units (unknown) date) (Updated 08/26/22 unknown) @ 10:25 by Jurgen Amador DO) (unknown) (no (unknown) (unknown) Family Practice (units (unknown) date) Office Visit unknown) (unknown) (no (unknown) (unknown) Father (units (unknown) date) Alzheimer's unknown) dementia (unknown) (no (unknown) (unknown) [facility] ([facility] unknown) (unknown) (no (unknown) (unknown) GI bleeding (units (un known) date) () unknown) (unknown) (no (unknown) (unknown) HPI (units (unkno wn) date) unknown) (unknown) (no (unknown) (unknown) Health (units (unkno wn) date) maintenance: unknown) normal colonoscopy 2021, pap 2013, mammogram 2012 (unknown) (no (unknown) (unknown) Height 5 ft 3 in (units (unknown) date) unknown) (unknown) (no (unknown) (unknown) History of (units (unk nown) date) alcohol abuse unknown) (unknown) (no (unknown) (unknown) History of liver (units (unknown) date) transplant unknown) (10/2014) (unknown) (no (unknown) (unknown) History of (units (unk nown) date) tobacco use unknown) (unknown) (no (unknown) (unknown) Incomplete (units (unk nown) date) emptying of unknown) bladder (unknown) (no (unknown) (unknown) Intake Note: (units (u nknown) date) unknown) (unknown) (no (unknown) (unknown) Intake performed (units (unknown) date) by: Flip,Corn unknown) (unknown) (no (unknown) (unknown) Intake (units (unkno wn) date) unknown) (unknown) (no (unknown) (unknown) Intake- Clincial (units (unknown) date) Staff unknown) (unknown) (no (unknown) (unknown) Kidney failure (units (unknown) date) (-2013) unknown) (unknown) (no (unknown) (unknown) 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 unknown) (unknown) (no (unknown) (unknown) Other Menstrual (units (unknown) date) Period: Surgical unknown) Menopause (unknown) (no (unknown) (unknown) PFSH (units (unkno wn) date) unknown) (unknown) (no (unknown) (unknown) Patient: (units (unkno wn) date) Ursula Zapata unknown) MR#: [id number] (unknown) (no (unknown) (unknown) Pre-diabetes (units (u nknown) date) unknown) (unknown) (no (unknown) (unknown) Reason For Visit (units (unknown) date) unknown) (unknown) (no (unknown) (unknown) Recurrent (units (unkn own) date) urinary tract unknown) infection (unknown) (no (unknown) (unknown) See Rx (units (unkno wn) date) Instructions unknown) .Route .COMPLEX #540 caps 08/26/22 [Rx Confirmed 11/22/22] (unknown) (no (unknown) (unknown) She was been on (units (unknown) date) those drugs for 3 unknown) months and the pancreatitis and UTIs have stop (unknown) (no (unknown) (unknown) Signed By: (units (unk nown) date) unknown) (unknown) (no (unknown) (unknown) Smoking Status: (units (unknown) date) Former smoker unknown) (unknown) (no (unknown) (unknown) Social History (units (unknown) date) unknown) (unknown) (no (unknown) (unknown) Status post (units (un known) date) delivery unknown) () (unknown) (no (unknown) (unknown) Status post (units (un known) date) delivery unknown) () (unknown) (no (unknown) (unknown) Status post (units (un known) date) delivery unknown) () (unknown) (no (unknown) (unknown) Status post (units (un known) date) hysterectomy unknown) () (unknown) (no (unknown) (unknown) Surgical History (units (unknown) date) (Reviewed unknown) 08/26/22 @ 10:23 by Jurgen Amador DO) (unknown) (no (unknown) (unknown) The patient (units (un known) date) denies fever, unknown) weight loss, fatigue, headache, shortness of breath, (unknown) (no (unknown) (unknown) This note may (units ( unknown) date) have been all or unknown) partially generated using voice recognition (unknown) (no (unknown) (unknown) Tobacco + (units (unkn own) date) Substance Use unknown) (unknown) (no (unknown) (unknown) Tobacco Status (units (unknown) date) unknown) (unknown) (no (unknown) (unknown) Transplant (units (unk nown) date) () unknown) (unknown) (no (unknown) (unknown) Type(s) of (units (unk nown) date) exercise: walking unknown) (unknown) (no (unknown) (unknown) Vertigo (-2016) (units (unknown) date) unknown) (unknown) (no (unknown) (unknown) Visit Reasons: (units (unknown) date) Lab f/u, Multiple unknown) issues 12 (unknown) (no (unknown) (unknown) Vitals (units (unkno wn) date) unknown) (unknown) (no (unknown) (unknown) Vitamin D (units (unkn own) date) deficiency unknown) (unknown) (no (unknown) (unknown) [History (units (unkno wn) date) Confirmed unknown) 11/22/22] (unknown) (no (unknown) (unknown) [Rx Confirmed (units ( unknown) date) 11/22/22] unknown) (unknown) (no (unknown) (unknown) because she (units (un known) date) abused alcohol, unknown) and she reports she is not having problems with (unknown) (no (unknown) (unknown) being a problem. (units (unknown) date) Her insulin unknown) levels were normal. She was told she had a (unknown) (no (unknown) (unknown) bupropion HCl (units ( unknown) date) 100 mg tablet,12 unknown) hr sustained-release (Wellbutrin SR) 100 mg PO (unknown) (no (unknown) (unknown) chest pain, (units (un known) date) abdominal pain, unknown) nausea, vomiting, diarrhea, constipation, pain with (unknown) (no (unknown) (unknown) complaints (units (unk nown) date) unknown) (unknown) (no (unknown) (unknown) continues with (units (unknown) date) Dapaglaflozin 15 unknown) mg daily and still has relief from those (unknown) (no (unknown) (unknown) controlled when (units (unknown) date) Dr[facility] in [facility] unknown) Alfredo put her on diabetes medications even (unknown) (no (unknown) (unknown) craving alcohol (units (unknown) date) now with the help unknown) of Welbutrin and LDN. She reports that she (unknown) (no (unknown) (unknown) dapagliflozin 5 (units (unknown) date) mg tablet unknown) (Farxiga) 10 mg PO DAILY 11/02/22 [History Confirmed (unknown) (no (unknown) (unknown) defecation, (units (un known) date) black or bloody unknown) stool, urge or stress incontinence, nocturia, (unknown) (no (unknown) (unknown) ent of kidney (units ( unknown) date) and liver unknown) transplant presents for discussion of past labs that (unknown) (no (unknown) (unknown) estradiol 10 mcg (units (unknown) date) vaginal tablet unknown) (Vagifem) 10 mcg vaginal 2XW #8 tabs 08/26/21 (unknown) (no (unknown) (unknown) frequency: 3-4 (units (unknown) date) times per week unknown) (unknown) (no (unknown) (unknown) have occurred. (units (unknown) date) If there are any unknown) questions, please contact the Medical Records (unknown) (no (unknown) (unknown) hydrocodone (units (un known) date) [From VICODIN] unknown) Allergy (Mild, Verified 11/22/22 10:40) (unknown) (no (unknown) (unknown) indicate above (units (unknown) date) normal fasting unknown) glucose at 108 and elevated two hour glucose (unknown) (no (unknown) (unknown) lipase-protease- (units (unknown) date) amylase unknown) 12,000-38,000-60, 000 unit capsule,delayed rel (Creon) (unknown) (no (unknown) (unknown) low dose (units (unkno wn) date) naltrexone PO unknown) DAILY 08/26/22 [History Confirmed 11/22/22] (unknown) (no (unknown) (unknown) marital status: (units (unknown) date) unknown) (unknown) (no (unknown) (unknown) may occur. (units (unk nown) date) Occasional unknown) wrong-word or 'sound-alike' substitutions may have (unknown) (no (unknown) (unknown) mycophenolate (units ( unknown) date) sodium 180 mg unknown) tablet,delayed release 180 mg PO BID 10/14/22 (unknown) (no (unknown) (unknown) neuropathy in (units ( unknown) date) her feet. unknown) (unknown) (no (unknown) (unknown) number of (units (unkn own) date) children: 3 unknown) (unknown) (no (unknown) (unknown) occurred due to (units (unknown) date) the inherent unknown) limitations of voice recognition software. Please (unknown) (no (unknown) (unknown) problem with (units (u nknown) date) ?processing unknown) sugar?. She has now stopped the semaglutide and (unknown) (no (unknown) (unknown) promethazine (units (u nknown) date) [From PHENERGAN] unknown) Allergy (Unknown, Verified 11/22/22 10:40) (unknown) (no (unknown) (unknown) rash (units (unkno wn) date) unknown) (unknown) (no (unknown) (unknown) read the note (units ( unknown) date) carefully and unknown) recognize, using context, where these substitutions (unknown) (no (unknown) (unknown) software. 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 (unknown) (no (unknown) (unknown) tobacco abuse, (units ( unknown) date) chronic unknown) pancreatitis, asthma, chronic back pain, and being recipi (unknown) (no (unknown) (unknown) tolerance test (units (unknown) date) and severe unknown) vitamin D deficiency. She needed the transplants (unknown) (no (unknown) (unknown) vaginal dryness (units (unknown) date) or atrophy, unknown) postmenopausal bleeding, hot flashes. She has mild (unknown) (no (unknown) (unknown) was having (units (unk nown) date) chronic UTIs, unknown) bloating, and pancreatitis chronically that was Result panel 4 (unknown) (no (unknown) (unknown) (no value) (units (unk nown) date) unknown) (unknown) (no (unknown) (unknown) [id number] (units (unkno wn) date) unknown) (unknown) (no (unknown) (unknown) 10:41 (units (unkno wn) date) unknown) (unknown) (no (unknown) (unknown) 11/22/22 (units (unkno wn) date) unknown) (unknown) (no (unknown) (unknown) 11/22/22] (units (unkn own) date) unknown) (unknown) (no (unknown) (unknown) 62 yo female (units (u nknown) date) presents today unknown) for a lab f/u. (unknown) (no (unknown) (unknown) 62-year-old (units (un known) date) woman history of unknown) incomplete emptying of bladder, alcohol abuse, (unknown) (no (unknown) (unknown) Age/Sex: 62 / F (units (unknown) date) Date of Service: unknown) (unknown) (no (unknown) (unknown) Allergies (units (unkn own) date) unknown) (unknown) (no (unknown) (unknown) [place], [place] (units ( unknown) date) [id number] unknown) (unknown) (no (unknown) (unknown) Anesthesia (units (unk nown) date) unknown) (unknown) (no (unknown) (unknown) Asthma (-2009) (units (unknown) date) unknown) (unknown) (no (unknown) (unknown) Attending Dr: (units ( unknown) date) Jurgen Amador D.O. unknown) (unknown) (no (unknown) (unknown) BP 136/78 (units (unkn own) date) unknown) (unknown) (no (unknown) (unknown) Blood Pressure (units (unknown) date) Location Lt unknown) brachial (unknown) (no (unknown) (unknown) Chief Complaint (units (unknown) date) unknown) (unknown) (no (unknown) (unknown) Chief Complaint: (units (unknown) date) Multiple issues unknown) (unknown) (no (unknown) (unknown) Chronic back (units (u nknown) date) pain () unknown) (unknown) (no (unknown) (unknown) Chronic (units (unkno wn) date) pancreatitis unknown) (unknown) (no (unknown) (unknown) Chronic urinary (units (unknown) date) tract infection unknown) (unknown) (no (unknown) (unknown) Cirrhosis (units (unkn own) date) () unknown) (unknown) (no (unknown) (unknown) DAILY 05/24/22 (units (unknown) date) [History unknown) Confirmed 11/22/22] (unknown) (no (unknown) (unknown) : 1960 (units (unknown) date) Acct:[id number] unknown) (unknown) (no (unknown) (unknown) Dept at (units (unkno wn) date) . unknown) (unknown) (no (unknown) (unknown) Details: (units (unkno wn) date) unknown) (unknown) (no (unknown) (unknown) Diet and (units (unkno wn) date) Exercise unknown) (unknown) (no (unknown) (unknown) Documented By: (units (unknown) date) Jurgen Amador D.O. unknown) 11/22/22 0847 (unknown) (no (unknown) (unknown) Draft (units (unkno wn) date) unknown) (unknown) (no (unknown) (unknown) Family History (units (unknown) date) (Updated 08/26/22 unknown) @ 10:25 by Jurgen Amador DO) (unknown) (no (unknown) (unknown) Family Practice (units (unknown) date) Office Visit unknown) (unknown) (no (unknown) (unknown) Father (units (unknown) date) Alzheimer's unknown) dementia (unknown) (no (unknown) (unknown) [facility] ([facility] date[facility] unknown) (unknown) (no (unknown) (unknown) GI bleeding (units (un known) date) () unknown) (unknown) (no (unknown) (unknown) HPI (units (unkno wn) date) unknown) (unknown) (no (unknown) (unknown) Health (units (unkno wn) date) maintenance: unknown) normal colonoscopy 2021, pap 2013, mammogram 2012 (unknown) (no (unknown) (unknown) Height 5 ft 3 in (units (unknown) date) unknown) (unknown) (no (unknown) (unknown) History of (units (unk nown) date) alcohol abuse unknown) (unknown) (no (unknown) (unknown) History of liver (units (unknown) date) transplant unknown) (10/2014) (unknown) (no (unknown) (unknown) History of (units (unk nown) date) tobacco use unknown) (unknown) (no (unknown) (unknown) Incomplete (units (unk nown) date) emptying of unknown) bladder (unknown) (no (unknown) (unknown) Intake Note: (units (u nknown) date) unknown) (unknown) (no (unknown) (unknown) Intake performed (units (unknown) date) by: Danita Castelan unknown) (unknown) (no (unknown) (unknown) Intake (units (unkno wn) date) unknown) (unknown) (no (unknown) (unknown) Intake- Clincial (units (unknown) date) Staff unknown) (unknown) (no (unknown) (unknown) Kidney failure (units (unknown) date) (-2013) unknown) (unknown) (no (unknown) (unknown) 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 unknown) (unknown) (no (unknown) (unknown) Other Menstrual (units (unknown) date) Period: Surgical unknown) Menopause (unknown) (no (unknown) (unknown) Oxygen Delivery (units (unknown) date) Method room air unknown) (unknown) (no (unknown) (unknown) PFSH (units (unkno wn) date) unknown) (unknown) (no (unknown) (unknown) Patient: (units (unkno wn) date) Ursula Zapata unknown) MR#: [id number] (unknown) (no (unknown) (unknown) Position Sitting (units (unknown) date) unknown) (unknown) (no (unknown) (unknown) Pre-diabetes (units (u nknown) date) unknown) (unknown) (no (unknown) (unknown) Pulse 68 (units (unkno wn) date) unknown) (unknown) (no (unknown) (unknown) Pulse Oximetry (units (unknown) date) (%) 95 unknown) (unknown) (no (unknown) (unknown) Pulse Source (units (u nknown) date) Monitor unknown) (unknown) (no (unknown) (unknown) Reason For Visit (units (unknown) date) unknown) (unknown) (no (unknown) (unknown) Recurrent (units (unkn own) date) urinary tract unknown) infection (unknown) (no (unknown) (unknown) See Rx (units (unkno wn) date) Instructions unknown) .Route .COMPLEX #540 caps 08/26/22 [Rx Confirmed 11/22/22] (unknown) (no (unknown) (unknown) She was been on (units (unknown) date) those drugs for 3 unknown) months and the pancreatitis and UTIs have stop (unknown) (no (unknown) (unknown) Signed By: (units (unk nown) date) unknown) (unknown) (no (unknown) (unknown) Smoking Status: (units (unknown) date) Former smoker unknown) (unknown) (no (unknown) (unknown) Social History (units (unknown) date) unknown) (unknown) (no (unknown) (unknown) Status post (units (un known) date) delivery unknown) () (unknown) (no (unknown) (unknown) Status post (units (un known) date) delivery unknown) () (unknown) (no (unknown) (unknown) Status post (units (un known) date) delivery unknown) () (unknown) (no (unknown) (unknown) Status post (units (un known) date) hysterectomy unknown) (-1998) (unknown) (no (unknown) (unknown) Surgical History (units (unknown) date) (Reviewed unknown) 08/26/22 @ 10:23 by Jurgen Amador DO) (unknown) (no (unknown) (unknown) The patient (units (un known) date) denies fever, unknown) weight loss, fatigue, headache, shortness of breath, (unknown) (no (unknown) (unknown) This note may (units ( unknown) date) have been all or unknown) partially generated using voice recognition (unknown) (no (unknown) (unknown) Tobacco + (units (unkn own) date) Substance Use unknown) (unknown) (no (unknown) (unknown) Tobacco Status (units (unknown) date) unknown) (unknown) (no (unknown) (unknown) Transplant (units (unk nown) date) (-2013) unknown) (unknown) (no (unknown) (unknown) Type(s) of (units (unk nown) date) exercise: walking unknown) (unknown) (no (unknown) (unknown) Vertigo (-2016) (units (unknown) date) unknown) (unknown) (no (unknown) (unknown) Visit Reasons: (units (unknown) date) Lab f/u, Multiple unknown) issues 12 (unknown) (no (unknown) (unknown) Vitals (units (unkno wn) date) unknown) (unknown) (no (unknown) (unknown) Vitamin D (units (unkn own) date) deficiency unknown) (unknown) (no (unknown) (unknown) [History (units (unkno wn) date) Confirmed unknown) 11/22/22] (unknown) (no (unknown) (unknown) [Rx Confirmed (units ( unknown) date) 11/22/22] unknown) (unknown) (no (unknown) (unknown) because she (units (un known) date) abused alcohol, unknown) and she reports she is not having problems with (unknown) (no (unknown) (unknown) being a problem. (units (unknown) date) Her insulin unknown) levels were normal. She was told she had a (unknown) (no (unknown) (unknown) bupropion HCl (units ( unknown) date) 100 mg tablet,12 unknown) hr sustained-release (Wellbutrin SR) 100 mg PO (unknown) (no (unknown) (unknown) chest pain, (units (un known) date) abdominal pain, unknown) nausea, vomiting, diarrhea, constipation, pain with (unknown) (no (unknown) (unknown) complaints (units (unk nown) date) unknown) (unknown) (no (unknown) (unknown) continues with (units (unknown) date) Dapaglaflozin 15 unknown) mg daily and still has relief from those (unknown) (no (unknown) (unknown) controlled when (units (unknown) date) Dr[facility] Bow[facility] in [facility] unknown) Alfredo put her on diabetes medications even (unknown) (no (unknown) (unknown) craving alcohol (units (unknown) date) now with the help unknown) of Welbutrin and LDN. She reports that she (unknown) (no (unknown) (unknown) dapagliflozin 5 (units (unknown) date) mg tablet unknown) (Farxiga) 10 mg PO DAILY 11/02/22 [History Confirmed (unknown) (no (unknown) (unknown) defecation, (units (un known) date) black or bloody unknown) stool, urge or stress incontinence, nocturia, (unknown) (no (unknown) (unknown) estradiol 10 mcg (units (unknown) date) vaginal tablet unknown) (Vagifem) 10 mcg vaginal 2XW #8 tabs 08/26/21 (unknown) (no (unknown) (unknown) frequency: 3-4 (units (unknown) date) times per week unknown) (unknown) (no (unknown) (unknown) have occurred. (units (unknown) date) If there are any unknown) questions, please contact the Medical Records (unknown) (no (unknown) (unknown) hydrocodone (units (un known) date) [From VICODIN] unknown) Allergy (Mild, Verified 11/22/22 10:40) (unknown) (no (unknown) (unknown) lipase-protease- (units (unknown) date) amylase unknown) 12,000-38,000-60, 000 unit capsule,delayed rel (Creon) (unknown) (no (unknown) (unknown) low dose (units (unkno wn) date) naltrexone PO unknown) DAILY 08/26/22 [History Confirmed 11/22/22] (unknown) (no (unknown) (unknown) marital status: (units (unknown) date) unknown) (unknown) (no (unknown) (unknown) may occur. (units (unk nown) date) Occasional unknown) wrong-word or 'sound-alike' substitutions may have (unknown) (no (unknown) (unknown) mycophenolate (units ( unknown) date) sodium 180 mg unknown) tablet,delayed release 180 mg PO BID 10/14/22 (unknown) (no (unknown) (unknown) neuropathy in (units ( unknown) date) her feet. unknown) (unknown) (no (unknown) (unknown) number of (units (unkn own) date) children: 3 unknown) (unknown) (no (unknown) (unknown) occurred due to (units (unknown) date) the inherent unknown) limitations of voice recognition software. Please (unknown) (no (unknown) (unknown) problem with (units (u nknown) date) ?processing unknown) sugar?. She has now stopped the semaglutide and (unknown) (no (unknown) (unknown) promethazine (units (u nknown) date) [From PHENERGAN] unknown) Allergy (Unknown, Verified 11/22/22 10:40) (unknown) (no (unknown) (unknown) rash (units (unkno wn) date) unknown) (unknown) (no (unknown) (unknown) read the note (units ( unknown) date) carefully and unknown) recognize, using context, where these substitutions (unknown) (no (unknown) (unknown) recipient of (units (u nknown) date) kidney and liver unknown) transplant presents for discussion of past labs (unknown) (no (unknown) (unknown) software. 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 (unknown) (no (unknown) (unknown) tobacco abuse, (units (unknown) date) chronic unknown) pancreatitis, asthma, chronic back pain, and being (unknown) (no (unknown) (unknown) tolerance test (units (unknown) date) and severe unknown) vitamin D deficiency. She needed the transplants (unknown) (no (unknown) (unknown) vaginal dryness (units (unknown) date) or atrophy, unknown) postmenopausal bleeding, hot flashes. She has mild (unknown) (no (unknown) (unknown) was having (units (unk nown) date) chronic UTIs, unknown) bloating, and pancreatitis chronically that was Result panel 5 (unknown) (no (unknown) (unknown) (no value) (units (unk nown) date) unknown) (unknown) (no (unknown) (unknown) [id number] (units (unkno wn) date) unknown) (unknown) (no (unknown) (unknown) 10:41 (units (unkno wn) date) unknown) (unknown) (no (unknown) (unknown) 11/22/22 (units (unkno wn) date) unknown) (unknown) (no (unknown) (unknown) 11/22/22] (units (unkn own) date) unknown) (unknown) (no (unknown) (unknown) 62 yo female (units (u nknown) date) presents today unknown) for a lab f/u. (unknown) (no (unknown) (unknown) 62-year-old (units (un known) date) woman history of unknown) incomplete emptying of bladder, alcohol abuse, (unknown) (no (unknown) (unknown) Age/Sex: 62 / F (units (unknown) date) Date of Service: unknown) (unknown) (no (unknown) (unknown) Allergies (units (unkn own) date) unknown) (unknown) (no (unknown) (unknown) [place], [place] (units ( unknown) date) [id number] unknown) (unknown) (no (unknown) (unknown) Anesthesia (units (unk nown) date) unknown) (unknown) (no (unknown) (unknown) Assessment + (units (u nknown) date) Plan unknown) (unknown) (no (unknown) (unknown) Asthma (-2009) (units (unknown) date) unknown) (unknown) (no (unknown) (unknown) Attending Dr: (units ( unknown) date) Jurgen Amador D.O. unknown) (unknown) (no (unknown) (unknown) BP 136/78 (units (unkn own) date) unknown) (unknown) (no (unknown) (unknown) Blood Pressure (units (unknown) date) Location Lt unknown) brachial (unknown) (no (unknown) (unknown) Chief Complaint (units (unknown) date) unknown) (unknown) (no (unknown) (unknown) Chief Complaint: (units (unknown) date) Multiple issues unknown) (unknown) (no (unknown) (unknown) Chronic back (units (u nknown) date) pain (-2012) unknown) (unknown) (no (unknown) (unknown) Chronic (units (unkno wn) date) pancreatitis unknown) (unknown) (no (unknown) (unknown) Chronic urinary (units (unknown) date) tract infection unknown) (unknown) (no (unknown) (unknown) Cirrhosis (units (unkn own) date) () unknown) (unknown) (no (unknown) (unknown) DAILY 05/24/22 (units (unknown) date) [History unknown) Confirmed 11/22/22] (unknown) (no (unknown) (unknown) : 1960 (units (unknown) date) Acct:[id number] unknown) (unknown) (no (unknown) (unknown) Dept at (units (unkno wn) date) . unknown) (unknown) (no (unknown) (unknown) Details: (units (unkno wn) date) unknown) (unknown) (no (unknown) (unknown) Diet and (units (unkno wn) date) Exercise unknown) (unknown) (no (unknown) (unknown) Documented By: (units (unknown) date) Jurgen Amador D.O. unknown) 11/22/22 0847 (unknown) (no (unknown) (unknown) Draft (units (unkno wn) date) unknown) (unknown) (no (unknown) (unknown) Family History (units (unknown) date) (Updated 08/26/22 unknown) @ 10:25 by Jurgen Amador DO) (unknown) (no (unknown) (unknown) Family Practice (units (unknown) date) Office Visit unknown) (unknown) (no (unknown) (unknown) Father (units (unknown) date) Alzheimer's unknown) dementia (unknown) (no (unknown) (unknown) [facility] ([facility] unknown) (unknown) (no (unknown) (unknown) GI bleeding (units (un known) date) () unknown) (unknown) (no (unknown) (unknown) HPI (units (unkno wn) date) unknown) (unknown) (no (unknown) (unknown) Health (units (unkno wn) date) maintenance: unknown) normal colonoscopy 2021, pap 2013, mammogram 2012 (unknown) (no (unknown) (unknown) Height 5 ft 3 in (units (unknown) date) unknown) (unknown) (no (unknown) (unknown) History of (units (unk nown) date) alcohol abuse unknown) (unknown) (no (unknown) (unknown) History of liver (units (unknown) date) transplant unknown) (10/2014) (unknown) (no (unknown) (unknown) History of (units (unk nown) date) tobacco use unknown) (unknown) (no (unknown) (unknown) Incomplete (units (unk nown) date) emptying of unknown) bladder (unknown) (no (unknown) (unknown) Intake Note: (units (u nknown) date) unknown) (unknown) (no (unknown) (unknown) Intake performed (units (unknown) date) by: Danita Castelan unknown) (unknown) (no (unknown) (unknown) Intake (units (unkno wn) date) unknown) (unknown) (no (unknown) (unknown) Intake- Clincial (units (unknown) date) Staff unknown) (unknown) (no (unknown) (unknown) Kidney failure (units (unknown) date) () unknown) (unknown) (no (unknown) (unknown) 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 unknown) (unknown) (no (unknown) (unknown) New (units (unkno wn) date) unknown) (unknown) (no (unknown) (unknown) Other Menstrual (units (unknown) date) Period: Surgical unknown) Menopause (unknown) (no (unknown) (unknown) Oxygen Delivery (units (unknown) date) Method room air unknown) (unknown) (no (unknown) (unknown) PFSH (units (unkno wn) date) unknown) (unknown) (no (unknown) (unknown) Patient: (units (unkno wn) date) Ursula Zapata unknown) MR#: [id number] (unknown) (no (unknown) (unknown) Position Sitting (units (unknown) date) unknown) (unknown) (no (unknown) (unknown) Pre-diabetes (units (u nknown) date) unknown) (unknown) (no (unknown) (unknown) Pulse 68 (units (unkno wn) date) unknown) (unknown) (no (unknown) (unknown) Pulse Oximetry (units (unknown) date) (%) 95 unknown) (unknown) (no (unknown) (unknown) Pulse Source (units (u nknown) date) Monitor unknown) (unknown) (no (unknown) (unknown) Reason For Visit (units (unknown) date) unknown) (unknown) (no (unknown) (unknown) Recurrent (units (unkn own) date) urinary tract unknown) infection (unknown) (no (unknown) (unknown) See Rx (units (unkno wn) date) Instructions unknown) .Route .COMPLEX #540 caps 08/26/22 [Rx Confirmed 11/22/22] (unknown) (no (unknown) (unknown) She was been on (units (unknown) date) those drugs for 3 unknown) months and the pancreatitis and UTIs have stop (unknown) (no (unknown) (unknown) Signed By: (units (unk nown) date) unknown) (unknown) (no (unknown) (unknown) Smoking Status: (units (unknown) date) Former smoker unknown) (unknown) (no (unknown) (unknown) Social History (units (unknown) date) unknown) (unknown) (no (unknown) (unknown) Status post (units (un known) date) delivery unknown) (-1983) (unknown) (no (unknown) (unknown) Status post (units (un known) date) delivery unknown) (-1986) (unknown) (no (unknown) (unknown) Status post (units (un known) date) delivery unknown) (-1994) (unknown) (no (unknown) (unknown) Status post (units (un known) date) hysterectomy unknown) (-1998) (unknown) (no (unknown) (unknown) Surgical History (units (unknown) date) (Reviewed unknown) 08/26/22 @ 10:23 by Jurgen Amador DO) (unknown) (no (unknown) (unknown) The patient (units (un known) date) denies fever, unknown) weight loss, fatigue, headache, shortness of breath, (unknown) (no (unknown) (unknown) This note may (units ( unknown) date) have been all or unknown) partially generated using voice recognition (unknown) (no (unknown) (unknown) Tobacco + (units (unkn own) date) Substance Use unknown) (unknown) (no (unknown) (unknown) Tobacco Status (units (unknown) date) unknown) (unknown) (no (unknown) (unknown) Transplant (units (unk nown) date) () unknown) (unknown) (no (unknown) (unknown) Type(s) of (units (unk nown) date) exercise: walking unknown) (unknown) (no (unknown) (unknown) Vertigo () (units (unknown) date) unknown) (unknown) (no (unknown) (unknown) Visit Reasons: (units (unknown) date) Lab f/u, Multiple unknown) issues 12 (unknown) (no (unknown) (unknown) Vitals (units (unkno wn) date) unknown) (unknown) (no (unknown) (unknown) Vitamin D (units (unkn own) date) deficiency unknown) (unknown) (no (unknown) (unknown) [History (units (unkno wn) date) Confirmed unknown) 11/22/22] (unknown) (no (unknown) (unknown) [Rx Confirmed (units ( unknown) date) 11/22/22] unknown) (unknown) (no (unknown) (unknown) because she (units (un known) date) abused alcohol, unknown) and she reports she is not having problems with (unknown) (no (unknown) (unknown) being a problem. (units (unknown) date) Her insulin unknown) levels were normal. She was told she had a (unknown) (no (unknown) (unknown) bupropion HCl (units ( unknown) date) 100 mg tablet,12 unknown) hr sustained-release (Wellbutrin SR) 100 mg PO (unknown) (no (unknown) (unknown) chest pain, (units (un known) date) abdominal pain, unknown) nausea, vomiting, diarrhea, constipation, pain with (unknown) (no (unknown) (unknown) complaints (units (unk nown) date) unknown) (unknown) (no (unknown) (unknown) continues with (units (unknown) date) Dapaglaflozin 15 unknown) mg daily and still has relief from those (unknown) (no (unknown) (unknown) controlled when (units (unknown) date) Dr. [facility] in [facility] unknown) Alfredo put her on diabetes medications even (unknown) (no (unknown) (unknown) craving alcohol (units (unknown) date) now with the help unknown) of Welbutrin and LDN. She reports that she (unknown) (no (unknown) (unknown) dapagliflozin 5 (units (unknown) date) mg tablet unknown) (Farxiga) 10 mg PO DAILY 11/02/22 [History Confirmed (unknown) (no (unknown) (unknown) defecation, (units (un known) date) black or bloody unknown) stool, urge or stress incontinence, nocturia, (unknown) (no (unknown) (unknown) estradiol 10 mcg (units (unknown) date) vaginal tablet unknown) (Vagifem) 10 mcg vaginal 2XW #8 tabs 08/26/21 (unknown) (no (unknown) (unknown) frequency: 3-4 (units (unknown) date) times per week unknown) (unknown) (no (unknown) (unknown) have occurred. (units (unknown) date) If there are any unknown) questions, please contact the Medical Records (unknown) (no (unknown) (unknown) hydrocodone (units (un known) date) [From VICODIN] unknown) Allergy (Mild, Verified 11/22/22 10:40) (unknown) (no (unknown) (unknown) lipase-protease- (units (unknown) date) amylase unknown) 12,000-38,000-60, 000 unit capsule,delayed rel (Creon) (unknown) (no (unknown) (unknown) low dose (units (unkno wn) date) naltrexone PO unknown) DAILY 08/26/22 [History Confirmed 11/22/22] (unknown) (no (unknown) (unknown) marital status: (units (unknown) date) unknown) (unknown) (no (unknown) (unknown) may occur. (units (unk nown) date) Occasional unknown) wrong-word or 'sound-alike' substitutions may have (unknown) (no (unknown) (unknown) mycophenolate (units ( unknown) date) sodium 180 mg unknown) tablet,delayed release 180 mg PO BID 10/14/22 (unknown) (no (unknown) (unknown) neuropathy in (units ( unknown) date) her feet. unknown) (unknown) (no (unknown) (unknown) number of (units (unkn own) date) children: 3 unknown) (unknown) (no (unknown) (unknown) occurred due to (units (unknown) date) the inherent unknown) limitations of voice recognition software. Please (unknown) (no (unknown) (unknown) problem with (units (u nknown) date) ?processing unknown) sugar?. 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 (unknown) (no (unknown) (unknown) tobacco abuse, (units (unknown) date) chronic unknown) pancreatitis, asthma, chronic back pain, and being (unknown) (no (unknown) (unknown) tolerance test (units (unknown) date) and severe unknown) vitamin D deficiency. She needed the transplants (unknown) (no (unknown) (unknown) vaginal dryness (units (unknown) date) or atrophy, unknown) postmenopausal bleeding, hot flashes. She has mild (unknown) (no (unknown) (unknown) was having (units (unk nown) date) chronic UTIs, unknown) bloating, and pancreatitis chronically that was Result panel 6 (unknown) (no (unknown) (unknown) (no value) (units (unk nown) date) unknown) (unknown) (no (unknown) (unknown) [id number] (units (unkno wn) date) unknown) (unknown) (no (unknown) (unknown) 10:41 (units (unkno wn) date) unknown) (unknown) (no (unknown) (unknown) 11/22/22 (units (unkno wn) date) unknown) (unknown) (no (unknown) (unknown) 11/22/22] (units (unkn own) date) unknown) (unknown) (no (unknown) (unknown) 62 yo female (units (u nknown) date) presents today unknown) for a lab f/u. (unknown) (no (unknown) (unknown) 62-year-old (units (un known) date) woman history of unknown) incomplete emptying of bladder, alcohol abuse, (unknown) (no (unknown) (unknown) Age/Sex: 62 / F (units (unknown) date) Date of Service: unknown) (unknown) (no (unknown) (unknown) Allergies (units (unkn own) date) unknown) (unknown) (no (unknown) (unknown) [place], [place] (units ( unknown) date) [id number] unknown) (unknown) (no (unknown) (unknown) Anesthesia (units (unk nown) date) unknown) (unknown) (no (unknown) (unknown) Assessment + (units (u nknown) date) Plan unknown) (unknown) (no (unknown) (unknown) Asthma (-2009) (units (unknown) date) unknown) (unknown) (no (unknown) (unknown) Attending Dr: (units ( unknown) date) Jurgen Amador D.O. unknown) (unknown) (no (unknown) (unknown) BP 136/78 (units (unkn own) date) unknown) (unknown) (no (unknown) (unknown) Blood Pressure (units (unknown) date) Location Lt unknown) brachial (unknown) (no (unknown) (unknown) Chief Complaint (units (unknown) date) unknown) (unknown) (no (unknown) (unknown) Chief Complaint: (units (unknown) date) Multiple issues unknown) (unknown) (no (unknown) (unknown) Chronic back (units (u nknown) date) pain () unknown) (unknown) (no (unknown) (unknown) Chronic (units (unkno wn) date) pancreatitis unknown) (unknown) (no (unknown) (unknown) Chronic urinary (units (unknown) date) tract infection unknown) (unknown) (no (unknown) (unknown) Cirrhosis (units (unkn own) date) () unknown) (unknown) (no (unknown) (unknown) Conjunctivae: (units ( unknown) date) conjunctivae unknown) normal (unknown) (no (unknown) (unknown) DAILY 05/24/22 (units (unknown) date) [History unknown) Confirmed 11/22/22] (unknown) (no (unknown) (unknown) : 1960 (units (unknown) date) Acct:[id number] unknown) (unknown) (no (unknown) (unknown) Dept at (units (unkno wn) date) . unknown) (unknown) (no (unknown) (unknown) Details: (units (unkno wn) date) unknown) (unknown) (no (unknown) (unknown) Diet and (units (unkno wn) date) Exercise unknown) (unknown) (no (unknown) (unknown) Documented By: (units (unknown) date) Jurgen Amador D.O. unknown) 11/22/22 0847 (unknown) (no (unknown) (unknown) Draft (units (unkno wn) date) unknown) (unknown) (no (unknown) (unknown) Exam Narrative (units (unknown) date) unknown) (unknown) (no (unknown) (unknown) Exam Narrative: (units (unknown) date) unknown) (unknown) (no (unknown) (unknown) Exam (units (unkno wn) date) unknown) (unknown) (no (unknown) (unknown) Eyelids: eyelids (units (unknown) date) normal unknown) (unknown) (no (unknown) (unknown) Eyes (units (unkno wn) date) unknown) (unknown) (no (unknown) (unknown) Family History (units (unknown) date) (Updated 08/26/22 unknown) @ 10:25 by Jurgen Amador DO) (unknown) (no (unknown) (unknown) Family Practice (units (unknown) date) Office Visit unknown) (unknown) (no (unknown) (unknown) Father (units (unknown) date) Alzheimer's unknown) dementia (unknown) (no (unknown) (unknown) [facility] ([facility] ([facility] date[facility] unknown) (unknown) (no (unknown) (unknown) GI bleeding (units (un known) date) () unknown) (unknown) (no (unknown) (unknown) General: (units (unkno wn) date) appearance unknown) normal, both eyes and all related structures (unknown) (no (unknown) (unknown) General: (units (unkno wn) date) cooperative, unknown) healthy appearing and comfortable (unknown) (no (unknown) (unknown) HENMT (units (unkno wn) date) unknown) (unknown) (no (unknown) (unknown) HPI (units (unkno wn) date) unknown) (unknown) (no (unknown) (unknown) Head: normal to (units (unknown) date) inspection unknown) (unknown) (no (unknown) (unknown) Health (units (unkno wn) date) maintenance: unknown) normal colonoscopy 2021, pap 2013, mammogram 2012 (unknown) (no (unknown) (unknown) Height 5 ft 3 in (units (unknown) date) unknown) (unknown) (no (unknown) (unknown) History of (units (unk nown) date) alcohol abuse unknown) (unknown) (no (unknown) (unknown) History of liver (units (unknown) date) transplant unknown) (10/2014) (unknown) (no (unknown) (unknown) History of (units (unk nown) date) tobacco use unknown) (unknown) (no (unknown) (unknown) Incomplete (units (unk nown) date) emptying of unknown) bladder (unknown) (no (unknown) (unknown) Intake Note: (units (u nknown) date) unknown) (unknown) (no (unknown) (unknown) Intake performed (units (unknown) date) by: Danita Castelan unknown) (unknown) (no (unknown) (unknown) Intake (units (unkno wn) date) unknown) (unknown) (no (unknown) (unknown) Intake- Clincial (units (unknown) date) Staff unknown) (unknown) (no (unknown) (unknown) Kidney failure (units (unknown) date) () unknown) (unknown) (no (unknown) (unknown) 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 unknown) (unknown) (no (unknown) (unknown) Neck: normal (units (u nknown) date) visual inspection unknown) (unknown) (no (unknown) (unknown) Neuro: alert and (units (unknown) date) oriented x3, unknown) normal cognition, speech normal, normal gait (unknown) (no (unknown) (unknown) New (units (unkno wn) date) unknown) (unknown) (no (unknown) (unknown) Nose: external (units (unknown) date) nose normal unknown) (unknown) (no (unknown) (unknown) Orientation: (units (u nknown) date) alert and unknown) oriented x3 (unknown) (no (unknown) (unknown) Other Menstrual (units (unknown) date) Period: Surgical unknown) Menopause (unknown) (no (unknown) (unknown) Oxygen Delivery (units (unknown) date) Method room air unknown) (unknown) (no (unknown) (unknown) PFSH (units (unkno wn) date) unknown) (unknown) (no (unknown) (unknown) Patient: (units (unkno wn) date) Ursula Zapata unknown) MR#: [id number] (unknown) (no (unknown) (unknown) Position Sitting (units (unknown) date) unknown) (unknown) (no (unknown) (unknown) Pre-diabetes (units (u nknown) date) unknown) (unknown) (no (unknown) (unknown) Psych: grossly (units (unknown) date) normal and well unknown) kempt, mental status grossly normal, speech and (unknown) (no (unknown) (unknown) Pulse 68 (units (unkno wn) date) unknown) (unknown) (no (unknown) (unknown) Pulse Oximetry (units (unknown) date) (%) 95 unknown) (unknown) (no (unknown) (unknown) Pulse Source (units (u nknown) date) Monitor unknown) (unknown) (no (unknown) (unknown) Reason For Visit (units (unknown) date) unknown) (unknown) (no (unknown) (unknown) Recurrent (units (unkn own) date) urinary tract unknown) infection (unknown) (no (unknown) (unknown) Resp: normal (units (u nknown) date) respiratory unknown) effort and able to speak in complete sentences (unknown) (no (unknown) (unknown) Sclera: sclerae (units (unknown) date) normal unknown) (unknown) (no (unknown) (unknown) See Rx (units (unkno wn) date) Instructions unknown) .Route .COMPLEX #540 caps 08/26/22 [Rx Confirmed 11/22/22] (unknown) (no (unknown) (unknown) Signed By: (units (unk nown) date) unknown) (unknown) (no (unknown) (unknown) Skin: no rashes (units (unknown) date) or lesions noted unknown) (unknown) (no (unknown) (unknown) Smoking Status: (units (unknown) date) Former smoker unknown) (unknown) (no (unknown) (unknown) Social History (units (unknown) date) unknown) (unknown) (no (unknown) (unknown) Status post (units (un known) date) delivery unknown) () (unknown) (no (unknown) (unknown) Status post (units (un known) date) delivery unknown) () (unknown) (no (unknown) (unknown) Status post (units (un known) date) delivery unknown) () (unknown) (no (unknown) (unknown) Status post (units (un known) date) hysterectomy unknown) () (unknown) (no (unknown) (unknown) Surgical History (units (unknown) date) (Reviewed unknown) 08/26/22 @ 10:23 by Jurgen Amador DO) (unknown) (no (unknown) (unknown) The patient (units (un known) date) denies fever, unknown) weight loss, fatigue, headache, shortness of breath, (unknown) (no (unknown) (unknown) This note may (units ( unknown) date) have been all or unknown) partially generated using voice recognition (unknown) (no (unknown) (unknown) Tobacco + (units (unkn own) date) Substance Use unknown) (unknown) (no (unknown) (unknown) Tobacco Status (units (unknown) date) unknown) (unknown) (no (unknown) (unknown) Transplant (units (unk nown) date) (-2013) unknown) (unknown) (no (unknown) (unknown) Type(s) of (units (unk nown) date) exercise: walking unknown) (unknown) (no (unknown) (unknown) Vertigo (-2016) (units (unknown) date) unknown) (unknown) (no (unknown) (unknown) Visit Reasons: (units (unknown) date) Lab f/u, Multiple unknown) issues 12 (unknown) (no (unknown) (unknown) Vitals (units (unkno wn) date) unknown) (unknown) (no (unknown) (unknown) Vitamin D (units (unkn own) date) deficiency unknown) (unknown) (no (unknown) (unknown) Welbutrin and (units ( unknown) date) LDN. She reports unknown) that while she was taking semaglutide her UTIs (unknown) (no (unknown) (unknown) [History (units (unkno wn) date) Confirmed unknown) 11/22/22] (unknown) (no (unknown) (unknown) [Rx Confirmed (units ( unknown) date) 11/22/22] unknown) (unknown) (no (unknown) (unknown) and pancreatitis (units (unknown) date) and headaches unknown) were greatly improved, and then when her (unknown) (no (unknown) (unknown) bupropion HCl (units ( unknown) date) 100 mg tablet,12 unknown) hr sustained-release (Wellbutrin SR) 100 mg PO (unknown) (no (unknown) (unknown) chest pain, (units (un known) date) abdominal pain, unknown) nausea, vomiting, diarrhea, constipation, pain with (unknown) (no (unknown) (unknown) dapagliflozin 5 (units (unknown) date) mg tablet unknown) (Farxiga) 10 mg PO DAILY 11/02/22 [History Confirmed (unknown) (no (unknown) (unknown) defecation, (units (un known) date) black or bloody unknown) stool, urge or stress incontinence, nocturia, (unknown) (no (unknown) (unknown) deficiency of (units ( unknown) date) 28.8. She needed unknown) the transplants because she abused alcohol, and (unknown) (no (unknown) (unknown) estradiol 10 mcg (units (unknown) date) vaginal tablet unknown) (Vagifem) 10 mcg vaginal 2XW #8 tabs 08/26/21 (unknown) (no (unknown) (unknown) frequency: 3-4 (units (unknown) date) times per week unknown) (unknown) (no (unknown) (unknown) have occurred. (units (unknown) date) If there are any unknown) questions, please contact the Medical Records (unknown) (no (unknown) (unknown) hydrocodone (units (un known) date) [From VICODIN] unknown) Allergy (Mild, Verified 11/22/22 10:40) (unknown) (no (unknown) (unknown) indicate above (units (unknown) date) normal fasting unknown) glucose at 108, A1c 5.8 and mild vitamin D (unknown) (no (unknown) (unknown) insurance denied (units (unknown) date) coverage of unknown) semaglutide and she is not had it for 3 months that (unknown) (no (unknown) (unknown) lipase-protease- (units (unknown) date) amylase unknown) 12,000-38,000-60, 000 unit capsule,delayed rel (Creon) (unknown) (no (unknown) (unknown) low dose (units (unkno wn) date) naltrexone PO unknown) DAILY 08/26/22 [History Confirmed 11/22/22] (unknown) (no (unknown) (unknown) marital status: (units (unknown) date) unknown) (unknown) (no (unknown) (unknown) may occur. (units (unk nown) date) Occasional unknown) wrong-word or 'sound-alike' substitutions may have (unknown) (no (unknown) (unknown) movement normal, (units (unknown) date) congruent mood unknown) (unknown) (no (unknown) (unknown) mycophenolate (units ( unknown) date) sodium 180 mg unknown) tablet,delayed release 180 mg PO BID 10/14/22 (unknown) (no (unknown) (unknown) neuropathy in (units ( unknown) date) her feet. unknown) (unknown) (no (unknown) (unknown) number of (units (unkn own) date) children: 3 unknown) (unknown) (no (unknown) (unknown) occurred due to (units (unknown) date) the inherent unknown) limitations of voice recognition software. 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 She (units (unknown) date) would like to unknown) start semaglutide again but it is very expensive. (unknown) (no (unknown) (unknown) vaginal dryness (units (unknown) date) or atrophy, unknown) postmenopausal bleeding, hot flashes. She has mild Result panel 7 (unknown) (no (unknown) (unknown) (no value) (units (unk nown) date) unknown) (unknown) (no (unknown) (unknown) (1) Chronic (units (un known) date) headaches: unknown) (unknown) (no (unknown) (unknown) (2) Vitamin D (units ( unknown) date) deficiency: unknown) (unknown) (no (unknown) (unknown) (3) Kidney (units (unk nown) date) transplant unknown) recipient: (unknown) (no (unknown) (unknown) (4) History of (units (unknown) date) liver transplant: unknown) (unknown) (no (unknown) (unknown) (5) Chronic (units (un known) date) pancreatitis: unknown) (unknown) (no (unknown) (unknown) [id number] (units (unkno wn) date) unknown) (unknown) (no (unknown) (unknown) 10:41 (units (unkno wn) date) unknown) (unknown) (no (unknown) (unknown) 11/22/22 1127 (units ( unknown) date) unknown) (unknown) (no (unknown) (unknown) 11/22/22 (units (unkno wn) date) unknown) (unknown) (no (unknown) (unknown) 11/22/22] (units (unkn own) date) unknown) (unknown) (no (unknown) (unknown) 62 yo female (units (u nknown) date) presents today unknown) for a lab f/u. (unknown) (no (unknown) (unknown) 62-year-old (units (un known) date) woman history of unknown) incomplete emptying of bladder, alcohol abuse, (unknown) (no (unknown) (unknown) Age/Sex: 62 / F (units (unknown) date) Date of Service: unknown) (unknown) (no (unknown) (unknown) Allergies (units (unkn own) date) unknown) (unknown) (no (unknown) (unknown) [place], [place] (units ( unknown) date) [id number] unknown) (unknown) (no (unknown) (unknown) Anesthesia (units (unk nown) date) unknown) (unknown) (no (unknown) (unknown) Assessment + (units (u nknown) date) Plan unknown) (unknown) (no (unknown) (unknown) Asthma (-2009) (units (unknown) date) unknown) (unknown) (no (unknown) (unknown) Attending Dr: (units ( unknown) date) Jurgen Amador D.O. unknown) (unknown) (no (unknown) (unknown) BP 136/78 (units (unkn own) date) unknown) (unknown) (no (unknown) (unknown) Blood Pressure (units (unknown) date) Location Lt unknown) brachial (unknown) (no (unknown) (unknown) Chief Complaint (units (unknown) date) unknown) (unknown) (no (unknown) (unknown) Chief Complaint: (units (unknown) date) Multiple issues unknown) (unknown) (no (unknown) (unknown) Chronic back (units (u nknown) date) pain () unknown) (unknown) (no (unknown) (unknown) Chronic (units (unkno wn) date) headaches unknown) (unknown) (no (unknown) (unknown) Chronic (units (unkno wn) date) pancreatitis unknown) (unknown) (no (unknown) (unknown) Chronic urinary (units (unknown) date) tract infection unknown) (unknown) (no (unknown) (unknown) Cirrhosis (units (unkn own) date) () unknown) (unknown) (no (unknown) (unknown) Code(s): R51.9 - (units (unknown) date) Headache, unknown) unspecified; G89.29 - Other chronic pain (unknown) (no (unknown) (unknown) Conjunctivae: (units ( unknown) date) conjunctivae unknown) normal (unknown) (no (unknown) (unknown) DAILY 05/24/22 (units (unknown) date) [History unknown) Confirmed 11/22/22] (unknown) (no (unknown) (unknown) : 1960 (units (unknown) date) Acct:[id number] unknown) (unknown) (no (unknown) (unknown) Dept at (units (unkno wn) date) . unknown) (unknown) (no (unknown) (unknown) Details: (units (unkno wn) date) unknown) (unknown) (no (unknown) (unknown) Diet and (units (unkno wn) date) Exercise unknown) (unknown) (no (unknown) (unknown) Documented By: (units (unknown) date) Jurgen Amador D.O. unknown) 11/22/22 0847 (unknown) (no (unknown) (unknown) Exam Narrative (units (unknown) date) unknown) (unknown) (no (unknown) (unknown) Exam Narrative: (units (unknown) date) unknown) (unknown) (no (unknown) (unknown) Exam (units (unkno wn) date) unknown) (unknown) (no (unknown) (unknown) Eyelids: eyelids (units (unknown) date) normal unknown) (unknown) (no (unknown) (unknown) Eyes (units (unkno wn) date) unknown) (unknown) (no (unknown) (unknown) Family History (units (unknown) date) (Updated 08/26/22 unknown) @ 10:25 by Jurgen Amador DO) (unknown) (no (unknown) (unknown) Family Practice (units (unknown) date) Office Visit unknown) (unknown) (no (unknown) (unknown) Father (units (unknown) date) Alzheimer's unknown) dementia (unknown) (no (unknown) (unknown) [facility]) (unknown) (no (unknown) (unknown) GI bleeding (units (un known) date) () unknown) (unknown) (no (unknown) (unknown) General: (units (unkno wn) date) appearance unknown) normal, both eyes and all related structures (unknown) (no (unknown) (unknown) General: (units (unkno wn) date) cooperative, unknown) healthy appearing and comfortable (unknown) (no (unknown) (unknown) HENMT (units (unkno wn) date) unknown) (unknown) (no (unknown) (unknown) HPI (units (unkno wn) date) unknown) (unknown) (no (unknown) (unknown) Head: normal to (units (unknown) date) inspection unknown) (unknown) (no (unknown) (unknown) Headache type: (units (unknown) date) unspecified unknown) Intractability: intractable Qualified (unknown) (no (unknown) (unknown) Health (units (unkno wn) date) maintenance: unknown) normal colonoscopy 2021, pap 2013, mammogram 2012 (unknown) (no (unknown) (unknown) Height 5 ft 3 in (units (unknown) date) unknown) (unknown) (no (unknown) (unknown) History of (units (unk nown) date) alcohol abuse unknown) (unknown) (no (unknown) (unknown) History of liver (units (unknown) date) transplant unknown) (10/2014) (unknown) (no (unknown) (unknown) History of (units (unk nown) date) tobacco use unknown) (unknown) (no (unknown) (unknown) Incomplete (units (unk nown) date) emptying of unknown) bladder (unknown) (no (unknown) (unknown) Intake Note: (units (u nknown) date) unknown) (unknown) (no (unknown) (unknown) Intake performed (units (unknown) date) by: Danita Castelan unknown) (unknown) (no (unknown) (unknown) Intake (units (unkno wn) date) unknown) (unknown) (no (unknown) (unknown) Intake- Clincial (units (unknown) date) Staff unknown) (unknown) (no (unknown) (unknown) Kidney failure (units (unknown) date) (-2013) unknown) (unknown) (no (unknown) (unknown) Kidney (units (unkno wn) date) transplant unknown) recipient (10/2014) (unknown) (no (unknown) (unknown) Last Menstural (units (unknown) date) Cycle + Details unknown) (unknown) (no (unknown) (unknown) Loc: [facility] (units (unkno wn) date) unknown) (unknown) (no (unknown) (unknown) Medical History (units (unknown) date) (Updated 11/22/22 unknown) @ 11:27 by Jurgen Amador DO) (unknown) (no (unknown) (unknown) Medications (units (un known) date) unknown) (unknown) (no (unknown) (unknown) Medications: (units (u nknown) date) unknown) (unknown) (no (unknown) (unknown) Mother No (units (unkn own) date) problems noted. unknown) (unknown) (no (unknown) (unknown) Neck: normal (units (u nknown) date) visual inspection unknown) (unknown) (no (unknown) (unknown) Neuro: alert and (units (unknown) date) oriented x3, unknown) normal cognition, speech normal, normal gait (unknown) (no (unknown) (unknown) New (units (unkno wn) date) unknown) (unknown) (no (unknown) (unknown) Nose: external (units (unknown) date) nose normal unknown) (unknown) (no (unknown) (unknown) Orientation: (units (u nknown) date) alert and unknown) oriented x3 (unknown) (no (unknown) (unknown) Other Menstrual (units (unknown) date) Period: Surgical unknown) Menopause (unknown) (no (unknown) (unknown) Oxygen Delivery (units (unknown) date) Method room air unknown) (unknown) (no (unknown) (unknown) PFSH (units (unkno wn) date) unknown) (unknown) (no (unknown) (unknown) Pancreatitis (units (u nknown) date) type: other unknown) Qualified Code(s): K86.1 - Other chronic (unknown) (no (unknown) (unknown) Patient's (units (unkn own) date) unusual medical unknown) history and chronic pancreatitis resulted in (unknown) (no (unknown) (unknown) Patient: (units (unkno wn) date) Ursula Zapata unknown) MR#: [id number] (unknown) (no (unknown) (unknown) Plan (units (unkno wn) date) unknown) (unknown) (no (unknown) (unknown) Position Sitting (units (unknown) date) unknown) (unknown) (no (unknown) (unknown) Pre-diabetes (units (u nknown) date) unknown) (unknown) (no (unknown) (unknown) Psych: grossly (units (unknown) date) normal and well unknown) kempt, mental status grossly normal, speech and (unknown) (no (unknown) (unknown) Pulse 68 (units (unkno wn) date) unknown) (unknown) (no (unknown) (unknown) Pulse Oximetry (units (unknown) date) (%) 95 unknown) (unknown) (no (unknown) (unknown) Pulse Source (units (u nknown) date) Monitor unknown) (unknown) (no (unknown) (unknown) Qualifiers: (units (un known) date) unknown) (unknown) (no (unknown) (unknown) Reason For Visit (units (unknown) date) unknown) (unknown) (no (unknown) (unknown) Recurrent (units (unkn own) date) urinary tract unknown) infection (unknown) (no (unknown) (unknown) Resp: normal (units (u nknown) date) respiratory unknown) effort and able to speak in complete sentences (unknown) (no (unknown) (unknown) Sclera: sclerae (units (unknown) date) normal unknown) (unknown) (no (unknown) (unknown) See Rx (units (unkno wn) date) Instructions unknown) .Route .COMPLEX #540 caps 08/26/22 [Rx Confirmed 11/22/22] (unknown) (no (unknown) (unknown) Signed By: (units (unk nown) date) <Electronically unknown) signed by Carlos StoneO.> (unknown) (no (unknown) (unknown) Signed (units (unkno wn) date) unknown) (unknown) (no (unknown) (unknown) Skin: no rashes (units (unknown) date) or lesions noted unknown) (unknown) (no (unknown) (unknown) Smoking Status: (units (unknown) date) Former smoker unknown) (unknown) (no (unknown) (unknown) Social History (units (unknown) date) unknown) (unknown) (no (unknown) (unknown) Status post (units (un known) date) delivery unknown) () (unknown) (no (unknown) (unknown) Status post (units (un known) date) delivery unknown) () (unknown) (no (unknown) (unknown) Status post (units (un known) date) delivery unknown) () (unknown) (no (unknown) (unknown) Status post (units (un known) date) hysterectomy unknown) () (unknown) (no (unknown) (unknown) Status: Acute (units ( unknown) date) unknown) (unknown) (no (unknown) (unknown) Status: Inactive (units (unknown) date) unknown) (unknown) (no (unknown) (unknown) Surgical History (units (unknown) date) (Reviewed unknown) 08/26/22 @ 10:23 by Jurgen Amador, DO) (unknown) (no (unknown) (unknown) The patient (units (un known) date) denies fever, unknown) weight loss, fatigue, headache, shortness of breath, (unknown) (no (unknown) (unknown) This note may (units ( unknown) date) have been all or unknown) partially generated using voice recognition (unknown) (no (unknown) (unknown) Tobacco + (units (unkn own) date) Substance Use unknown) (unknown) (no (unknown) (unknown) Tobacco Status (units (unknown) date) unknown) (unknown) (no (unknown) (unknown) Transplant (units (unk nown) date) (-2013) unknown) (unknown) (no (unknown) (unknown) Type(s) of (units (unk nown) date) exercise: walking unknown) (unknown) (no (unknown) (unknown) Vertigo (-2015) (units (unknown) date) unknown) (unknown) (no (unknown) (unknown) Visit Reasons: (units (unknown) date) Lab f/u, Multiple unknown) issues 12 (unknown) (no (unknown) (unknown) Vitals (units (unkno wn) date) unknown) (unknown) (no (unknown) (unknown) Vitamin D (units (unkn own) date) deficiency unknown) (unknown) (no (unknown) (unknown) Welbutrin and (units ( unknown) date) LDN. She reports unknown) that while she was taking semaglutide her UTIs (unknown) (no (unknown) (unknown) [History (units (unkno wn) date) Confirmed unknown) 11/22/22] (unknown) (no (unknown) (unknown) [Rx Confirmed (units ( unknown) date) 11/22/22] unknown) (unknown) (no (unknown) (unknown) and pancreatitis (units (unknown) date) and headaches unknown) were greatly improved, and then when her (unknown) (no (unknown) (unknown) bupropion HCl (units ( unknown) date) 100 mg tablet,12 unknown) hr sustained-release (Wellbutrin SR) 100 mg PO (unknown) (no (unknown) (unknown) chest pain, (units (un known) date) abdominal pain, unknown) nausea, vomiting, diarrhea, constipation, pain with (unknown) (no (unknown) (unknown) dapagliflozin 5 (units (unknown) date) mg tablet unknown) (Farxiga) 10 mg PO DAILY 11/02/22 [History Confirmed (unknown) (no (unknown) (unknown) defecation, (units (un known) date) black or bloody unknown) stool, urge or stress incontinence, nocturia, (unknown) (no (unknown) (unknown) deficiency of (units ( unknown) date) 28.8. She needed unknown) the transplants because she abused alcohol, and (unknown) (no (unknown) (unknown) estradiol 10 mcg (units (unknown) date) vaginal tablet unknown) (Vagifem) 10 mcg vaginal 2XW #8 tabs 08/26/21 (unknown) (no (unknown) (unknown) frequency: 3-4 (units (unknown) date) times per week unknown) (unknown) (no (unknown) (unknown) have occurred. (units (unknown) date) If there are any unknown) questions, please contact the Medical Records (unknown) (no (unknown) (unknown) hope to persuade (units (unknown) date) her insurance unknown) company to pay for it again. (unknown) (no (unknown) (unknown) hydrocodone (units (un known) date) [From VICODIN] unknown) Allergy (Mild, Verified 11/22/22 10:40) (unknown) (no (unknown) (unknown) indicate above (units (unknown) date) normal fasting unknown) glucose at 108, A1c 5.8 and mild vitamin D (unknown) (no (unknown) (unknown) insurance denied (units (unknown) date) coverage of unknown) semaglutide and she is not had it for 3 months that (unknown) (no (unknown) (unknown) lipase-protease- (units (unknown) date) amylase unknown) 12,000-38,000-60, 000 unit capsule,delayed rel (Creon) (unknown) (no (unknown) (unknown) low dose (units (unkno wn) date) naltrexone PO unknown) DAILY 08/26/22 [History Confirmed 11/22/22] (unknown) (no (unknown) (unknown) marital status: (units (unknown) date) unknown) (unknown) (no (unknown) (unknown) may occur. (units (unk nown) date) Occasional unknown) wrong-word or 'sound-alike' substitutions may have (unknown) (no (unknown) (unknown) movement normal, (units (unknown) date) congruent mood unknown) (unknown) (no (unknown) (unknown) mycophenolate (units ( unknown) date) sodium 180 mg unknown) tablet,delayed release 180 mg PO BID 10/14/22 (unknown) (no (unknown) (unknown) neuropathy in (units ( unknown) date) her feet. unknown) (unknown) (no (unknown) (unknown) number of (units (unkn own) date) children: 3 unknown) (unknown) (no (unknown) (unknown) occurred due to (units (unknown) date) the inherent unknown) limitations of voice recognition software. 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 The (units (unknown) date) headaches have unknown) returned now that she is off semaglutide. I (unknown) (no (unknown) (unknown) she reports she (units (unknown) date) is not having unknown) problems with craving alcohol now with the help of (unknown) (no (unknown) (unknown) software. 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 She (units (unknown) date) would like to unknown) start semaglutide again but it is very expensive. (unknown) (no (unknown) (unknown) vaginal dryness (units (unknown) date) or atrophy, unknown) postmenopausal bleeding, hot flashes. She has mild (unknown) (no (unknown) (unknown) widespread (units (unk nown) date) symptoms unknown) including headaches that were relieved when she was taking Social History date description facility 2022-11-22 00:00 Ex-smoker ([facility] Vital Signs date measurement value units 2022-11-22 00:00 BP_diastolic 78 mmHg 2022-11-22 00:00 BP_systolic 136 mmHg 2022-11-22 00:00 heart_rate 68 /min 2022-11-22 00:00 height_metric 160.02 cm 2022-11-22 00:00 height_standard 63 in 2022-11-22 00:00 o2_saturation 95 %
[2023-02-03 08:14] LABS: BASOPHILS % (AUTO) 0.4 %; EOSINOPHILS # (AUTO) 0.1 10^3/uL (0.0-0.7); EOSINOPHILS % (AUTO) 1.3 %; HCT - HEMATOCRIT 34.7 % (37.0-47.0); HGB - HEMOGLOBIN 11.1 g/dL (12.0-16.0); LYMPHOCYTES # (AUTO) 1.6 10^3/uL (1.5-3.5); LYMPHOCYTES % (AUTO) 16.5 %; MEAN CORPUSCULAR HEMOGLOBIN 29.4 pg (27.0-31.0); MEAN PLATELET VOLUME 9.1 fL (7.9-10.8); MONOCYTES # (AUTO) 0.6 10^3/uL (0.0-1.0); MONOCYTES % (AUTO) 6.1 %; NEUTROPHILS # (AUTO) 7.2 10^3/uL (1.5-6.6); NEUTROPHILS % (AUTO) 75.2 %; PLT - PLATELET COUNT 422 10^3/uL (130-450); RED BLOOD COUNT 3.77 10^6/uL (4.20-5.40); RED CELL DISTRIBUTION WIDTH 12.5 % (12.0-15.0); WHITE BLOOD COUNT 9.5 x10^3/uL (4.8-10.8)
[2023-02-03 08:22] LABS: KETONES, SERUM (ACETEST) NEGATIVE (NEGATIVE)
[2023-02-03 08:30] LABS: ALBUMIN 3.7 g/dL (3.2-5.5); ALBUMIN/GLOBULIN RATIO 0.9 (1.0-2.2); ALKALINE PHOSPHATASE 71 IU/L (42-121); ALT ALANINE AMINOTRANSFERASE 18 IU/L (10-60); AST ASPARTATE AMINOTRANSFERASE 16 IU/L (10-42); BILIRUBIN,TOTAL 0.8 mg/dL (0.2-1.0); BUN - BLOOD UREA NITROGEN 32 mg/dL (6-20); CALCIUM 9.4 mg/dL (8.5-10.3); CARBON DIOXIDE - CO2 25 mmol/L (21-32); CHLORIDE 104 mmol/L (101-111); CREATININE 1.4 mg/dL (0.4-1.0); GFR - MDRD 38 (>89); GLUCOSE 107 mg/dL (70-100); LIPASE 22 U/L (22-51); PHOSPHORUS 3.2 mg/dL (2.5-4.6); POTASSIUM 4.4 mmol/L (3.5-5.0); SODIUM 139 mmol/L (135-145); TOTAL PROTEIN 7.9 g/dL (6.7-8.2)
[2023-02-03 08:36] LABS: BILIRUBIN,URINE NEGATIVE (NEGATIVE); GLUCOSE, URINE (UA) >=1000 mg/dL (NEGATIVE); KETONES,URINE (UA) NEGATIVE (NEGATIVE); LEUKOCYTE ESTERASE, URINE NEGATIVE (NEGATIVE); NITRITE,URINE POSITIVE (NEGATIVE); OCCULT BLOOD,URINE NEGATIVE (NEGATIVE); PH,URINE 5.5 PH (5.0-7.5); PROTEIN,URINE NEGATIVE (NEGATIVE); UROBILINOGEN,URINE 0.2 (NORMAL) E.U./dL (NORMAL)
[2023-02-03 08:38] LABS: CLARITY,URINE HAZY (CLEAR)
[2023-02-03 08:47] LABS: BACTERIA,URINE Many /HPF (None Seen); RBC,URINE 0-5 /HPF (0-5); SQUAMOUS EPITHELIAL CELL,UR RARE Squamous (<= Few); WBC,URINE >25 /HPF (0-5)
[2023-02-03 08:48] LABS: CASTS, URINE 0-2 Hyaline Casts /LPF
[2023-02-03 09:18] LABS: ESTIMATED AVERAGE GLUCOSE 128 mg/dL (70-100); HEMOGLOBIN A1c% 6.1 % (4.27-6.07)
[2023-02-03] MEDS ORDERED: MAG HYDROX/AL HYDROX/SIMETH 30 ML UDC PO STA (10:53)
[2023-02-03] MEDS ORDERED: ACETAMINOPHEN 325 MG TABLET PO STA (10:53)
[2023-02-03] MEDS ORDERED: cefTRIAXone 1 GM VIAL IVP STA (11:46)
[2023-02-03 12:45] VITALS: BP 145/100
--- NOTE | 2023-02-03 14:00 | Ultrasound Report ---
PROCEDURE: Duplex Ext Veins Right INDICATIONS: right leg numbness/cramping TECHNIQUE: Real-time imaging, as well as color and pulse Doppler interrogation, were performed of the lower extr emity deep veins from the inguinal ligament to the popliteal fossa. COMPARISON: None. FINDINGS: The deep veins are normally compressible, and free of intraluminal thrombus. Color and pu lse Doppler demonstrate normal phasic intraluminal flow. There is normal augmentation response to di stal compression maneuver. Trace fluid or edema at the right calf in the subcutaneous tissues. IMPRESSION: No right lower extremity DVT. Preliminary results were conveyed to Dr. Kessler by the case maker at 12:10 PM. Reviewed by: Patricio Corwe MD on 02/03/2023 1:59 PM PST Approved by: Patricio Crowe MD on 02/03/2023 1:59 PM [facility] Station ID: [id number]
== END 2023-02-03 12:44 | disposition home or self-care (01) ==
LOC: ED 07:18
DX: N30.00 Acute cystitis without hematuria (principal); R63.1 Polydipsia; E11.9 Type 2 diabetes mellitus without complications; R20.0 Anesthesia of skin; R79.89 Other specified abnormal findings of blood chemistry; Z94.0 Kidney transplant status; Z94.4 Liver transplant status
CPT/HCPCS: 36415; 80053; 81001; 82009; 83036; 83690; 83735; 83930; 83935; 84100; 84156; 84300; 85025; 85651; 87086; 87181; 93971; 96374; 99284; A9270; J7120; 81003

== ENCOUNTER 2024-02-26 07:00 | Outpatient (CLI) | payer BC | END 2024-02-26 23:59 | disposition home or self-care (01) | LOC: LAB.S 07:00 | PROVIDERS: ATTEND Physician Assistant Medical | DX: J02.9 Acute pharyngitis, unspecified (principal) | CPT/HCPCS: 87070 ==

== ENCOUNTER 2024-04-10 08:00 | Outpatient (CLI) | payer BC | END 2024-04-10 23:59 | disposition home or self-care (01) | LOC: LAB.S 08:00 | PROVIDERS: ATTEND Registered Nurse | DX: N30.00 Acute cystitis without hematuria (principal); Z94.0 Kidney transplant status | CPT/HCPCS: 87086 ==

== ENCOUNTER 2024-07-15 07:00 | Outpatient (CLI) | payer BC | END 2024-07-15 23:59 | disposition home or self-care (01) | LOC: LAB.S 07:00 | PROVIDERS: ATTEND Physician Assistant | DX: N30.00 Acute cystitis without hematuria (principal) | CPT/HCPCS: 87086 ==

== ENCOUNTER 2024-07-16 17:16 | Emergency (ER) | payer BC ==
[2024-07-16 18:05] LABS: BILIRUBIN,URINE NEGATIVE (NEGATIVE); GLUCOSE, URINE (UA) >=1000 mg/dL (NEGATIVE); KETONES,URINE (UA) NEGATIVE (NEGATIVE); LEUKOCYTE ESTERASE, URINE NEGATIVE (NEGATIVE); NITRITE,URINE NEGATIVE (NEGATIVE); OCCULT BLOOD,URINE NEGATIVE (NEGATIVE); PH,URINE 5.5 PH (5.0-7.5); PROTEIN,URINE NEGATIVE (NEGATIVE); UROBILINOGEN,URINE 0.2 (NORMAL) E.U./dL (NORMAL)
[2024-07-16 18:07] LABS: CLARITY,URINE CLEAR (CLEAR)
[2024-07-16 18:10] LABS: BASOPHILS # (AUTO) 0.1 10^3/uL (0.0-0.1); BASOPHILS % (AUTO) 0.9 %; EOSINOPHILS # (AUTO) 0.2 10^3/uL (0.0-0.7); EOSINOPHILS % (AUTO) 3.5 %; HCT - HEMATOCRIT 40.5 % (37.0-47.0); LYMPHOCYTES # (AUTO) 2.9 10^3/uL (1.5-3.5); LYMPHOCYTES % (AUTO) 45.8 %; MEAN CORPUSCULAR HEMOGLOBIN 30.1 pg (27.0-31.0); MEAN CORPUSCULAR HGB CONC 32.1 g/dL (32.0-36.0); MEAN CORPUSCULAR VOLUME 93.8 fL (81.0-99.0); MEAN PLATELET VOLUME 9.5 fL (7.9-10.8); MONOCYTES # (AUTO) 0.5 10^3/uL (0.0-1.0); MONOCYTES % (AUTO) 7.4 %; NEUTROPHILS # (AUTO) 2.7 10^3/uL (1.5-6.6); NEUTROPHILS % (AUTO) 42.2 %; PLT - PLATELET COUNT 288 10^3/uL (130-450); RED BLOOD COUNT 4.32 10^6/uL (4.20-5.40); RED CELL DISTRIBUTION WIDTH 12.5 % (12.0-15.0); WHITE BLOOD COUNT 6.4 x10^3/uL (4.8-10.8)
[2024-07-16 18:28] LABS: ALBUMIN 4.5 g/dL (3.2-5.5); ALBUMIN/GLOBULIN RATIO 1.3 (1.0-2.2); ALKALINE PHOSPHATASE 61 IU/L (42-121); ALT ALANINE AMINOTRANSFERASE 20 IU/L (10-60); AST ASPARTATE AMINOTRANSFERASE 23 IU/L (10-42); BILIRUBIN,TOTAL 0.8 mg/dL (0.2-1.0); BUN - BLOOD UREA NITROGEN 27 mg/dL (6-20); CALCIUM 9.9 mg/dL (8.5-10.3); CARBON DIOXIDE - CO2 30 mmol/L (21-32); CHLORIDE 103 mmol/L (101-111); CREATININE 2.2 mg/dL (0.6-1.3); GFR - MDRD 23 (>89); GLUCOSE 106 mg/dL (74-104); POTASSIUM 4.3 mmol/L (3.5-4.5); SODIUM 141 mmol/L (135-145); TOTAL PROTEIN 8.1 g/dL (6.4-8.9)
[2024-07-16 18:56] LABS: LIPASE < 10 U/L (11-82)
--- NOTE | 2024-07-16 19:01 | ED Physician Documentation ---
PD HPI ABD PAIN - Stated complaint Stated Complaint: GI - Chief complaint Chief Complaint: Abd Pain - History obtained from History obtained from: Patient - History of Present Illness Timing - onset: How many months ago (1) Timing - duration: Months (1) Pain level max: 5 Pain level now: 5 Quality: Aching, Pain Location: Epigastric Associated symptoms: Nausea. No: Fever, Vomiting, Hematemesis, Diarrhea, Constipation, Melena, Hematochezia, Dysuria Recently seen: Not recently seen Review of Systems Constitutional: denies: Fever, Chills Respiratory: denies: Cough GI: denies: Vomiting, Diarrhea Skin: denies: Rash Musculoskeletal: denies: Neck pain, Back pain Neurologic: denies: Headache PD PAST MEDICAL HISTORY - Past Medical History Past Medical History: Yes Cardiovascular: None Respiratory: Asthma Neuro: Peripheral neuropathy, Seizure disorder Endocrine/Autoimmune: None GI: GI bleed, Cirrhosis, Other [employer]: None : Other HEENT: None Psych: Depression Musculoskeletal: None Derm: None Other Past Medical History: liver and kidney transplant 2013 - Past Surgical History Past Surgical History: Yes General: Liver surgery, Other Ortho: Other /[employer]PER[employer]: section, Hysterectomy HEENT: Tonsil/Adenoidectomy - Present Medications Home Medications: Ambulatory Orders Medication Instructions Recorded Confirmed Mycophenolate Sodium [Mycophenolic 180 mg PO BID 03/07/15 07/16/24 Acid] Tacrolimus 1 mg PO BID 03/07/15 07/16/24 Lipase/Protease/Amylase [Karen Cummins 3 cap ORAL TID 02/23/21 07/16/24 12,000 Units Capsule] Cefpodoxime Proxetil [Vantin] 100 mg PO Q12H #10 tablet 07/16/24 Empagliflozin [Jardiance] 10 mg ORAL DAILY 07/16/24 07/16/24 SULFAM/TRIM 800/160 Prepack 2 1 tab ORAL BID 07/16/24 07/16/24 [BACTRIM DS 800/160 Prepack 2] metFORMIN [Glucophage] 500 mg PO DAILY 07/16/24 07/16/24 polyethylene glycoL 3350(BULK) 17 gm PO DAILY PRN #1 each 07/16/24 [Miralax] - Allergies Allergies/Adverse Reactions: Allergies Allergy/AdvReac Type Severity Reaction Status Date / Time promethazine HCl * Allergy Intermediate Anxiety Verified 07/16/24 17:28 [From Phenergan] sertraline HCl * Allergy Unknown Unknown Verified 07/16/24 17:28 [From Zoloft] - Social History Does the pt smoke?: No Smoking Status: Never smoker Does the pt drink ETOH?: No Does the pt have substance abuse?: No - Immunizations Immunizations are current?: Yes - POLST Patient has POLST: Yes POLST Status: Full Code PD ED PE NORMAL - Vitals Vital signs reviewed: Yes - General General: Alert and oriented X 3, No acute distress - HEENT HEENT: PERRL, Moist mucous membranes - Neck Neck: Supple, no meningeal sign - Cardiac Cardiac: RRR, Strong equal pulses - Respiratory Respiratory: No respiratory distress, Clear bilaterally - Abdomen Abdomen: Soft, Non tender, Non distended - Back Back: No CVA TTP, No spinal TTP - Derm Derm: Warm and dry - Extremities Extremities: No edema - Neuro Neuro: Alert and oriented X 3 - Psych Psych: Normal mood, Normal affect Results - Vitals Vitals: Vital Signs - 24 hr 07/16/24 07/16/24 07/16/24 17:37 18:11 19:00 Temperature 36.8 C Heart Rate 84 72 69 Respiratory 18 16 17 Rate Blood Pressure 133/76 H 136/81 H 133/99 H O2 Saturation 100 93 94 07/16/24 20:00 Temperature Heart Rate 65 Respiratory 18 Rate Blood Pressure 137/85 H O2 Saturation 93 Oxygen O2 Source Room air - Labs Labs: Laboratory Tests 07/16/24 07/16/24 07/16/24 17:40 18:05 18:05 WBC 6.4 RBC 4.32 Hgb 13.0 Hct 40.5 MCV 93.8 MCH 30.1 MCHC 32.1 RDW 12.5 Plt Count 288 MPV 9.5 Neut # (Auto) 2.7 Lymph # (Auto) 2.9 [place]ven # (Auto) 0.5 Eos # (Auto) 0.2 Baso # (Auto) 0.1 Absolute Nucleated RBC 0.00 Nucleated RBC % 0.0 Sodium 141 Potassium 4.3 Chloride 103 Carbon Dioxide 30 Anion Gap 8.0 BUN 27 H Creatinine 2.2 H Estimated GFR (MDRD) 23 L Glucose 106 H Calcium 9.9 Total Bilirubin 0.8 AST 23 ALT 20 Alkaline Phosphatase 61 Total Protein 8.1 Albumin 4.5 Globulin 3.6 Albumin/Globulin Ratio 1.3 Lipase < 10 L Urine Color YELLOW Urine Clarity CLEAR Urine pH 5.5 Ur Specific [place] 1.025 Urine Protein NEGATIVE Urine Glucose (UA) >=1000 H Urine Ketones NEGATIVE Urine Occult Blood NEGATIVE Urine Nitrite NEGATIVE Urine Bilirubin NEGATIVE Urine Urobilinogen 0.2 (NORMAL) Ur Leukocyte Esterase NEGATIVE Ur Microscopic Review NOT INDICATED Urine Culture Comments NOT INDICATED - Rads (name of study) CT abdomen pelvis Relevant Findings:: Final report received, See rad report PD Medical Decision Making - ED course Complexity details: reviewed results, re-evaluated patient, considered differential, d/w patient ED course: 64-year-old female with a remote history of a liver transplant as well as a kidney transplant was started on Bactrim yesterday for UTI. She appears to have a mild acute kidney injury, possibly secondary to Bactrim? Given IV fluids here. CT scan was performed for the abdominal pain, contrast was not used secondary to her low GFR. Appears to be constipated on CT scan. She has a known blockage in one of her liver segments that her GI team is working on. Given magnesium citrate for constipation will place on MiraLAX. Will change the Bactrim to a cephalosporin. Will have her have her creatinine rechecked with her primary care provider. Patient is well-appearing, nontoxic. Afebrile. No vomiting. Patient counseled regarding signs and symptoms for which I believe and urgent re-evaluation would be necessary. Patient with good understanding of and agreement to plan and is comfortable going home at this time This document was made in part using voice recognition software. While efforts are made to proofread this document, sound alike and grammatical errors may occur. Departure - Departure Disposition: 01 Home, Self Care Clinical Impression: Acute kidney injury Constipation Qualifiers: Constipation type: unspecified constipation type Qualified Code(s): K59.00 - Constipation, unspecified Condition: Good Instructions: ED Constipation Follow-Up: your,doctor in 1 week [Other] Prescriptions: polyethylene glycoL 3350(BULK) [Miralax] 17 gm PO DAILY PRN #1 each PRN Reason: Constipation Cefpodoxime Proxetil [Vantin] 100 mg PO Q12H #10 tablet Comments: Your prescription was sent to [facility] in [place]. As we discussed, please stop the Bactrim as this can cause kidney injury. You need to have your kidney function rechecked in approximately 1 week with your doctor. We will change your antibiotic tonight. You appear constipated on CT scan and this may be causing your bloating. You are given magnesium citrate tonight. Will prescribe MiraLAX for home as well. Please follow-up with your doctor for further care and return if you worsen. PROCEDURE: Abdomen/Pelvis WO INDICATIONS: abd swelling, h/o renal/liver xplant TECHNIQUE: A CT scan of the abdomen and pelvis was performed without the use of intravenous contrast. Images were recorded and evaluated at appropriate window settings. Reformats: coronal and sagittal. For radiation dose reduction, the following was used: automated exposure control, adjustment of mA and/or kV according to patient size. COMPARISON: 09/30/2015 (02/12/2019 not available for review) FINDINGS: Image quality: Diagnostic Lower chest: No basal effusions. Mildly thickened distal esophageal wall, nonspecific. Liver: Solid organs are poorly evaluated without IV contrast. No contour deforming mass. There is heterogeneity in the anterior portion of segment 4, of uncertain etiology. Gallbladder and biliary system: Absent, nondilated allowing for postsurgical state Pancreas: Atrophic parenchyma with calcifications indicating chronic pancreatitis Spleen: Nonenlarged Adrenals: Bilateral thickening Kidneys: Atrophic [place] kidneys. Right lower quadrant graft is present. Mild fat stranding is seen around the graft hilum. No calcified obstructing stone Vessels and lymph nodes: No abdominal aortic aneurysm or pathologic lymph nodes by size criteria. Atherosclerotic calcifications are present. Bowel and peritoneum: Mild wall thickening of the stomach, not well assessed due to gastric underdistention. No acute small bowel obstruction. Overall moderate fecal loading. No drainable abscess or pathologic ascites. Colonic diverticula are seen. Body wall: Small fat-containing umbilical hernia Pelvis: Bladder is underdistended and unremarkable. The uterus is absent Bones: Possible small bone island. There are degenerative changes. IMPRESSION: No small bowel obstruction. Moderate fecal loading. Colonic diverticula are seen without CT evidence of acute inflammation. Mildly thickened gastric and distal esophageal wall, possibly gastroesophagitis versus artifact of under distention. Solid organs are poorly evaluated without IV contrast. There is heterogeneity of the anterior liver transplant in segment 4,, indeterminate. Correlate with LFTs. Mild fat stranding is also seen at the right lower quadrant transplant hilum, which may be postsurgical. Correlate with urinalysis. Other findings as above Forms: PCP List
[2024-07-16] MEDS: SODIUM CHLORIDE 0.9% 1,000 ML IV STA (19:19)
--- NOTE | 2024-07-16 20:10 | CT Report ---
PROCEDURE: Abdomen/Pelvis WO INDICATIONS: abd swelling, h/o renal/liver xplant TECHNIQUE: A CT scan of the abdomen and pelvis was performed without the use of intravenous contrast. Images we re recorded and evaluated at appropriate window settings. Reformats: coronal and sagittal. For radiat ion dose reduction, the following was used: automated exposure control, adjustment of mA and/or kV ac cording to patient size. COMPARISON: 09/30/2015 (02/12/2019 not available for review) FINDINGS: Image quality: Diagnostic Lower chest: No basal effusions. Mildly thickened distal esophageal wall, nonspecific. Liver: Solid organs are poorly evaluated without IV contrast. No contour deforming mass. There is heterogeneity in the anterior portion of segment 4, of uncertain etiology. Gallbladder and biliary system: Absent, nondilated allowing for postsurgical state Pancreas: Atrophic parenchyma with calcifications indicating chronic pancreatitis Spleen: Nonenlarged Adrenals: Bilateral thickening Kidneys: Atrophic [place] kidneys. Right lower quadrant graft is present. Mild fat stranding is seen a round the graft hilum. No calcified obstructing stone Vessels and lymph nodes: No abdominal aortic aneurysm or pathologic lymph nodes by size criteria. Ath erosclerotic calcifications are present. Bowel and peritoneum: Mild wall thickening of the stomach, not well assessed due to gastric underdist ention. No acute small bowel obstruction. Overall moderate fecal loading. No drainable abscess or pat hologic ascites. Colonic diverticula are seen. Body wall: Small fat-containing umbilical hernia Pelvis: Bladder is underdistended and unremarkable. The uterus is absent Bones: Possible small bone island. There are degenerative changes. IMPRESSION: No small bowel obstruction. Moderate fecal loading. Colonic diverticula are seen without CT evidence of acute inflammation. Mildly thickened gastric and distal esophageal wall, possibly gastroesophagitis versus artifact of un ambrosio distention. Solid organs are poorly evaluated without IV contrast. There is heterogeneity of the anterior liver t ransplant in segment 4,, indeterminate. Correlate with LFTs. Mild fat stranding is also seen at the right lower quadrant transplant hilum, which may be postsurgic al. Correlate with urinalysis. Other findings as above Reviewed by: Tam Martinez MD on 07/16/2024 8:09 PM PDT Approved by: Tam Martinez MD on 07/16/2024 8:09 PM PDT Station ID: [id number]
[2024-07-16] MEDS: MAGNESIUM CITRATE 296 ML BOTTLE PO STA (20:51)
[2024-07-16 21:10] VITALS: BP 115/66; O2SAT 94
== END 2024-07-16 20:50 | disposition home or self-care (01) ==
LOC: ED 17:16
DX: N17.9 Acute kidney failure, unspecified (principal); K59.00 Constipation, unspecified; J45.909 Unspecified asthma, uncomplicated; G62.9 Polyneuropathy, unspecified; Z86.39 Personal history of other endocrine, nutritional and metabolic disease; Z94.0 Kidney transplant status; Z94.4 Liver transplant status; Z79.899 Other long term (current) drug therapy
CPT/HCPCS: 36415; 74176; 80053; 81003; 83690; 85025; 99283; 99284; A9270; 81001; 87086